=== PATIENT | female | born 1990 | race Caucasian/White ===

== ENCOUNTER 2023-05-04 10:05 | Emergency (ER) | payer OTHER, SELFPAY ==
[2023-05-04] VITALS (8 sets, daily range): BP systolic 107–113; BP diastolic 72–76; PULSE 101–119; RESP 27–30; TEMP 37.1; O2SAT 92–95; BMI 44.6
--- NOTE | 2023-05-04 10:16 | ECG_ITS ---
The [facility] Test Date: 2023-05-04 Pat Name: RASHIDA ROBLES Department: Room: - Gender: Female [employer] Specialist: : 1990 Requested By: AYSHA DEL TORO Order Number: [id number] Reading MD: JASON BURROUGHS Measurements Intervals [place] Rate: 116 P: 73 MO: 136 QRS: 75 QRSD: 84 T: 54 QT: 316 QTc: 385 Interpretive Statements 1120 Sinus tachycardia 4068 Nonspecific Twave abnormality 9140 abnormal rhythm ECG Compared to ECG 05/10/2022 12:33:50 Sinus rhythm no longer present Electronically Signed On 05-08-2023 6:37:43 EST by JASON BURROUGHS
--- NOTE | 2023-05-04 10:19 | ED_ITS ---
HPI - SOB/Dyspnea General Chief Complaint: Shortness of Breath/Dyspnea Stated Complaint: SHORTNESS OF BREATH Time Seen by Provider: 05/04/23 10:15 Source: patient Mode of arrival: walk-in Limitations: no limitations History of Present Illness HPI Narrative: asthmatic 33 yr old female sent from Barb Del Toro's office for treatment of shortness of breath, potential asthma flare. Symptoms began about 4 days ago and are associated with some upper respiratory symptoms. She also complains of chest congestion and tightness across the anterior chest. No fever or chills. No GI or symptoms. She has been using a home MDI. No treatment given at the office. Related Data Previous Rx's Medication Instructions Recorded ipratropium bromide 0.02 % 2.5 ml inhalation Q6H PRN 05/04/23 solution for inhalation shortness of breath or wheezing #62.5 mL prednisone 20 mg tablet 40 mg (2 x 20 mg) PO DAILY 5 days 05/04/23 #10 tabs Allergies Allergy/AdvReac Type Severity Reaction Status Date / Time Penicillins Allergy Unknown Verified 05/04/23 10:11 [facility] Social History Smoking status: Never smoker Exam Narrative Exam Narrative: Nurses notes and vital signs reviewed and patient is not hypoxic. afebrile General: Well-appearing and in no apparent distress. Skin: Warm, dry, no pallor noted. Neck: Supple, non-tender. No cervical lymphadenopathy Eye: Pupils are equal, round and EOMI. No scleral icterus. Ears, Nose, Mouth, and Throat: TM are clear, mild posterior oropharynx erythema and nasal mucosal hypertrophy, uvula is mid-line Oral mucosa is moist Cardiovascular: Regular Rate and Rhythm without murmur, gallop or rub. Respiratory: Accessory muscle use and increased work of breathing. Lungs are diminished throughout with inspiratory and expiratory wheezing. Musculoskeletal: normal ROM, no calf or popliteal tenderness, no lower extremity edema/swelling GI: Abdomen is soft, non-distended. Normal bowel sounds. No tenderness to palpation. No rebound, guarding, or rigidity noted. Neurological: A&O x4. No cranial nerve dysfunction observed. No truncal ataxia. Moves all extremities. Sensation intact. Psychiatric: Cooperative and interactive. Normal mood and affect. Constitutional Vital Signs, click to edit/add: Last Vital Signs Temp 98.7 F 05/04/23 10:12 Pulse 101 H 05/04/23 11:11 Resp 27 H 05/04/23 10:20 BP 113/72 05/04/23 11:11 Pulse Ox 93 L 05/04/23 11:11 O2 Del Method Room Air 05/04/23 10:32 Course Vital Signs Vital signs: Vital Signs Temperature 98.7 F 05/04/23 10:12 Pulse Rate 119 H 05/04/23 10:12 Respiratory Rate 30 H 05/04/23 10:12 Blood Pressure 107/76 05/04/23 10:12 Pulse Oximetry 93 L 05/04/23 10:12 Oxygen Delivery Method Room Air 05/04/23 10:12 Temperature 98.7 F 05/04/23 10:12 Pulse Rate 101 H 05/04/23 11:11 Respiratory Rate 27 H 05/04/23 10:20 Blood Pressure 113/72 05/04/23 11:11 Pulse Oximetry 93 L 05/04/23 11:11 Oxygen Delivery Method Room Air 05/04/23 10:32 MDM - SOB/Dyspnea MDM Narrative Medical decision making narrative: Patient was placed on shelter monitor and EKG obtained. Blood drawn and sent for evaluation. She was ordered to receive IV Solu-Medrol and a DuoNeb treatment. Portable chest x-ray obtained. Swabs and blood testing were all negative. Chest x-ray NEGATIVE. On recheck at 1055, the patient had less work of breathing and better air exchange. She still had inspiratory and expiratory breathing throughout. She felt better and declined offer for admission. She was prescribed prednisone pills and atrovent nebs. Discussed ED return if she worsens. Follow up with Barb Del Toro otherwise Lab Data Attestation: I reviewed the patient's lab results. Labs: Lab Results 05/04/23 05/04/23 Range/Units 10:28 10:30 WBC 10.6 (4.0-11.0) 10^3/uL RBC 4.75 (4.20-5.40) 10^6/uL Hgb 13.4 (12.0-16.0) g/dL Hct 41.8 (36.0-48.0) % MCV 88.0 (81.0-99.0) fL MCH 28.2 (26.7-34.0) pg MCHC 32.1 (29.9-35.2) g/dL RDW 14.0 (11.0-15.0) % Plt Count 328 (150-450) 10^3/uL MPV 10.3 (9.5-13.5) fL Neut % (Auto) 59.7 (43.0-75.0) % Lymph % (Auto) 23.2 (20.5-60.0) % [place] % (Auto) 5.4 (1.7-12.0) % Eos % (Auto) 10.8 H (0.9-7.0) % Baso % (Auto) 0.6 (0.2-2.0) % Neut # (Auto) 6.4 (1.4-6.5) 10^3/uL Lymph # (Auto) 2.5 (1.2-3.8) 10^3/uL [place] # (Auto) 0.6 (0.3-0.8) 10^3/uL Eos # (Auto) 1.2 H (0.0-0.7) 10^3/uL Baso # (Auto) 0.1 (0.0-0.1) 10^3/uL Abs Immat Gran (auto) 0.03 (0.00-0.03) 10^3/uL Imm/Tot Granulo (auto) 0.3 (0.0-0.5) % Sodium 140 (136-145) mmol/L Potassium 3.6 (3.5-5.1) mmol/L Chloride 102 (98-107) mmol/L Carbon Dioxide 25.4 (21.0-32.0) mmol/L Anion Gap 16.2 BUN 11.0 (7.0-18.0) mg/dL Creatinine 0.91 (0.55-1.02) mg/dL Est GFR ( Amer) >60 (>=60) Est GFR (Non-Af Amer) >60 (>=60) BUN/Creatinine Ratio 12.1 Glucose 155 H (74-106) mg/dL Calcium 9.3 (8.5-10.1) mg/dL Influenza Type A Ag Negative Influenza Type B Ag Negative SARS-CoV-2 Ag (CV2AG) Negative (NEGATIVE) Imaging Data Chest x-ray: Radiologist's impression: ITS Impressions Chest X-Ray 05/04/23 10:45 IMPRESSION: No acute cardiopulmonary process Electronically authenticated by: CAMILA ALMENDAREZ Date: 05/04/2023 11:05 ECG Data Attestation: I personally reviewed and interpreted this ECG as follows: Interpretation: EKG interpretation: Emergency Department physician interpretation. Sinus tachycardia at 116bpm. Normal axis, normal intervals and non specific T wave changes. No ST segment elevation or depression. Discharge Plan Discharge Chief Complaint: Shortness of Breath/Dyspnea Clinical Impression: Asthma with acute exacerbation Patient Disposition: Home, Self-Care Time of Disposition Decision: 11:26 Prescriptions / Home Meds: New prednisone 20 mg tablet 40 mg PO DAILY 5 Days Qty: 10 0RF ipratropium bromide 0.02 % solution 2.5 ml inhalation Q6H PRN (Reason: shortness of breath or wheezing) Qty: 62.5 0RF Instructions: Asthma (ED) Stand Alone Forms: Portal Instructions Referrals: AYSHA DEL TORO [Primary Care Provider] - 1 week
[2023-05-04] MEDS: METHYLPREDNISOLONE SOD SUCC PF 125 MG/2 ML VIAL IVP (10:25)
[2023-05-04] MEDS: IPRATROPIUM/ALBUTEROL SULFATE 3 ML AMPUL.NEB IH (10:31)
[2023-05-04 10:35] LABS: Basophils Absolute Auto 0.1 10^3/uL (0.0-0.1); Basophils Percent Auto 0.6 % (0.2-2.0); Eosinophils Absolute Auto 1.2 10^3/uL (0.0-0.7); Eosinophils Percent Auto 10.8 % (0.9-7.0); Hematocrit 41.8 % (36.0-48.0); Hemoglobin 13.4 g/dL (12.0-16.0); Immature Granulocytes Abs Auto 0.03 10^3/uL (0.00-0.03); Immature Granulocytes Pct Auto 0.3 % (0.0-0.5); Lymphocytes Absolute Auto 2.5 10^3/uL (1.2-3.8); Lymphocytes Percent Auto 23.2 % (20.5-60.0); Mean Corpuscular HGB Conc 32.1 g/dL (29.9-35.2); Mean Corpuscular Hemoglobin 28.2 pg (26.7-34.0); Mean Platelet Volume 10.3 fL (9.5-13.5); Monocytes Absolute Auto 0.6 10^3/uL (0.3-0.8); Monocytes Percent Auto 5.4 % (1.7-12.0); Neutrophils Absolute Auto 6.4 10^3/uL (1.4-6.5); Neutrophils Percent Auto 59.7 % (43.0-75.0); Platelet Count 328 10^3/uL (150-450); Red Blood Count 4.75 10^6/uL (4.20-5.40); White Blood Count 10.6 10^3/uL (4.0-11.0)
--- NOTE | 2023-05-04 10:45 | XR_ITS ---
The [address] [address] Patient Name: RASHIDA ROBLES MRN: [id number] date: 1990 Sex: F Assigned Patient Location: ER Current Patient Location: ER Accession/Order Number: [id number] Exam Date: 05/04/2023 10:40 Report Date: 05/04/2023 11:05 At the request of: MOLLY LUJAN Procedure: XR chest 1V EXAMINATION: XR chest 1V HISTORY: shortness of breath COMPARISON: 05/10/2022 TECHNIQUE: AP portable FINDINGS: LUNGS: No significant pulmonary parenchymal abnormalities. VASCULATURE: No increased pulmonary vasculature. PLEURA: No pneumothorax, effusion, or pleural thickening. CARDIAC: No cardiomegaly or cardiac silhouette abnormality. MEDIASTINUM: No visible mass or adenopathy. BONES: No fracture or visible bone lesion. OTHER: Negative. XR/XR chest 1V IMPRESSION: No acute cardiopulmonary process Electronically authenticated by: CAMILA ALMENDAREZ Date: 05/04/2023 11:05
[2023-05-04 10:46] LABS: Anion Gap 16.2; BUN Creatinine Ratio 12.1; Calcium 9.3 mg/dL (8.5-10.1); Carbon Dioxide 25.4 mmol/L (21.0-32.0); Chloride 102 mmol/L (98-107); Estimated GFR (African America >60 (>=60); Estimated GFR (Non-African Ame >60 (>=60); Glucose 155 mg/dL (74-106); Potassium 3.6 mmol/L (3.5-5.1); Sodium 140 mmol/L (136-145)
[2023-05-04 10:47] LABS: Influenza Virus A Antigen Negative; Influenza Virus B Antigen Negative; SARS-CoV-2 Ag NEGATIVE (NEGATIVE)
[2023-05-04 10:48] LABS: Internal Control Within Normal Limits
== END 2023-05-04 11:38 | disposition home or self-care (01) ==
PROVIDERS: Emergency Provider Emergency Medicine; PCP Nurse Practitioner Family
DX: J45.901 Unspecified asthma with (acute) exacerbation (principal)
CPT/HCPCS: 36415; 71045; 80048; 85025; 87804; 87811; 93005; 94640; 96374; 99285; J2930

== ENCOUNTER 2023-10-05 13:06 | Inpatient (IN) | payer OTHER, SELFPAY ==
[2023-10-05] VITALS (22 sets, daily range): BP systolic 128–130; BP diastolic 64–93; PULSE 96–114; TEMP 36.6–36.8; O2SAT 92–99; BMI 44.6; BMI 44.4
--- NOTE | 2023-10-05 13:13 | XR_ITS ---
The [address] [address] Patient Name: RASHIDA ROBLES MRN: [id number] date: 1990 Sex: F Assigned Patient Location: ED.MAIN Current Patient Location: ER Accession/Order Number: [id number] Exam Date: 10/05/2023 11:50 Report Date: 10/05/2023 14:13 At the request of: GEORGE WILCOX Procedure: XR chest 2V EXAM: XR chest 2V HISTORY: shortness of breath COMPARISON: 05/04/2023 TECHNIQUE: Upright PA and lateral chest x-ray FINDINGS: The heart is not enlarged and the vasculature is not distended. No acute infiltrate, effusion or pneumothorax is identified. The osseous structures are grossly intact. XR/XR chest 2V IMPRESSION: No acute infiltrate or evidence of cardiac decompensation. The overall appearance of the chest is essentially unchanged. Electronically authenticated by: BURT CUENCA Date: 10/05/2023 14:13
[2023-10-05] MEDS: METHYLPREDNISOLONE SOD SUCC PF 125 MG/2 ML VIAL IVP (13:21)
--- NOTE | 2023-10-05 13:23 | PC.NURSE ---
started for comfort
[2023-10-05] MEDS: IPRATROPIUM/ALBUTEROL SULFATE 3 ML AMPUL.NEB 9 ML IH (13:25)
[2023-10-05] MEDS: MAGNESIUM SULFATE IN WATER 2 GM/50 ML PREMIX IV (13:33)
--- NOTE | 2023-10-05 15:26 | ED_ITS ---
HPI HPI - General Adult General Chief complaint: Shortness of Breath/Dyspnea Stated complaint: SOB Time Seen by Provider: 10/05/23 13:09 Source: patient Mode of arrival: Wheelchair Limitations: no limitations History of Present Illness HPI narrative: 33-year-old female to the emergency department with chief complaint of asthma exacerbation. Patient has longstanding asthma. She reports multiple hospitalizations. No intubations. She reports it has been a few months since she has been on steroids. Current spell started over the last 2 to 3 days. She has been using albuterol nebulizer treatments at home with only mild relief of symptoms. Worsened today. She occasionally smokes. No chest pain or leg swelling. Related Data Home Medications ?Medication ?Instructions ?Recorded ?Confirmed albuterol sulfate 2.5 mg/3 mL 2.5 mg inhalation Q4H PRN 10/05/23 10/05/23 (0.083 %) solution for nebulization shortness of breath or wheezing albuterol sulfate 90 mcg/actuation 2 inh inhalation Q4H PRN 10/05/23 10/05/23 aerosol inhaler bronchospasm cetirizine 10 mg tablet 10 mg PO DAILY 10/05/23 10/05/23 lamotrigine 100 mg tablet 200 mg PO DAILY 10/05/23 10/05/23 mometasone-formoterol HFA 200 2 inh inhalation Q12H 10/05/23 10/05/23 mcg-5 mcg/actuation aerosol inhaler (Dulera) quetiapine 100 mg tablet 100 mg PO DAILY 10/05/23 10/05/23 tiotropium bromide 1.25 2 puff inhalation Q24H 10/05/23 10/05/23 mcg/actuation mist for inhalation (Spiriva Respimat) Allergies Allergy/AdvReac Type Severity Reaction Status Date / Time Penicillins Allergy Unknown Unknown Verified 10/05/23 13:11 Opioid HPI Opioid Management Most Recent Opioid Data: No Data to Display Review of Systems ROS Status of ROS 10 or more systems reviewed and unremark able except as noted in history and below PFSH PFSH Social History Smoking status: Never smoker Exam Narrative Exam Narrative: VITALS: I have reviewed the triage vital signs. GENERAL: 33-year-old female in moderate respiratory distress NEURO: Alert and oriented. Moves all extremities. Face is symmetric and e xpressive. EYES: PERRL. No scleral icterus or conjunctival injection. No discharge. HENT: Normocephalic, atraumatic. Hearing is grossly intact. Nares grossly patent and without discharge. Mucous membranes moist. NECK: No JVD. Patient moves neck without restriction. CARDIO: Rhythm regular. Normal rate. No murmur, rub, or gallop. Pulses equal bilaterally in the upper and lower extremity. No lower extremity edema. PULM: Severe conversational dyspnea. Moderate increased work of breathing. Minimal air movement. Hyperexpanded lungs. Trace wheezing. GI/: Abdomen is soft and non-tender. Normoactive bowel sounds. EXTREMITIES: Symmetric muscle bulk. No joint swelling. No clubbing, cyanosis, or deformity. SKIN: Warm and dry. Normal turgor. No rash or lesions appreciated. PSYCH: Anxious Constitutional Vital Signs, click to edit/add: Last Vital Signs Temp 97.9 F 10/05/23 13:11 Pulse 114 H 10/05/23 13:26 Resp 20 10/05/23 13:26 BP 128/93 H 10/05/23 13:13 Pulse Ox 98 10/05/23 15:10 O2 Del Method Nasal Cannula 10/05/23 13:26 O2 Flow Rate 1 10/05/23 13:26 Course Vital Signs Vital signs: Vital Signs Temperature 97.9 F 10/05/23 13:11 Respiratory Rate 28 H 10/05/23 13:11 Blood Pressure 128/93 H 10/05/23 13:11 Pulse Oximetry 94 L 10/05/23 13:11 Oxygen Delivery Method Room Air 10/05/23 13:11 Temperature 97.9 F 10/05/23 13:11 Pulse Rate 114 H 10/05/23 13:26 Respiratory Rate 20 10/05/23 13:26 Blood Pressure 128/93 H 10/05/23 13:13 Pulse Oximetry 98 10/05/23 15:10 Oxygen Delivery Method Nasal Cannula 10/05/23 13:26 Oxygen Delivery Flow Rate 1 10/05/23 13:26 Medical Decision Making MDM Narrative Medical decision making narrative: 33-year-old female to the emergency department chief complaint of asthma exacerbation. She is tachypneic, otherwise stable vitals. She has moderate to severe respiratory distress. Respiratory was called and she was given 3 stacked DuoNeb treatments, 2 g of magnesium, 125 mg of IV Solu-Medrol. She denies , declines test. Patient did open up significantly and is moving much better. She feels much more comfortable. Her respiratory rate has come down significantly. Her oxygen saturation hovered around 90 so she was placed on 1 to 2 L O2. She felt much more comfortable with some oxygen on. Chest x-ray without acute findings. No indication for labs at this time. Discussed with the patient. She reports that this is a more severe exacerbation than typical for her. She believes she is best served by hospitalization which I agree with. Case discussed with the hospitalist Dr. Ortiz who agrees admit the patient to his service. Medical Records Medical records reviewed: Yes I reviewed the patient's medical records Imaging Data Chest x-ray: Radiologist's impression: ITS Impressions Chest X-Ray 10/05/23 13:13 IMPRESSION: No acute infiltrate or evidence of cardiac decompensation. The overall appearance of the chest is essentially unchanged. Electronically authenticated by: BURT CUENCA Date: 10/05/2023 14:13 Critical Care Time Critical Care Time Critical Care Time: Yes Total Critical Care Time: 25 Attestation: Critical Care Procedure Note Authorized and Performed by: Aristides Gallardo DO Total critical care time: 30 min Due to a high probability of clinically significant, life threatening deterioration, the patient required my highest level of preparedness to in [facility] emergently and I personally spent this critical care time directly and personally managing the patient. This critical care time included obtaining a history; examining the patient; pulse oximetry; ordering and review of studies; arranging urgent treatment with development of a management plan; evaluation of patient's response to treatment; frequent reassessment; and, discussions with other providers. This critical care time was performed to assess and manage the high probability of imminent, life-threatening deterioration that could result in multi-organ failure. It was exclusive of separately billable procedures and treating other patients and teaching time. Please see MDM section and the rest of the note for further information on patient assessment and treatment. Discharge Plan Discharge Chief Complaint: Shortness of Breath/Dyspnea Clinical Impression: Asthma with acute exacerbation, Respiratory failure Patient Disposition: Admitted as Observation Time of Disposition Decision: 15:31 Condition: Fair Prescriptions / Home Meds: No Action albuterol sulfate 2.5 mg /3 mL (0.083 %) solution for nebulization cetirizine 10 mg tablet quetiapine 100 mg tablet albuterol sulfate 90 mcg/actuation HFA aerosol inhaler INHALATION lamotrigine 100 mg tablet Dulera 200-5 mcg/actuation HFA aerosol inhaler INHALATION Spiriva Respimat 1.25 mcg/actuation mist INHALATION Print Language: Telugu Referrals: AYSHA DEL TORO [Primary Care Provider] - 1 week
[2023-10-05] MEDS: ONDANSETRON PF 4 MG/2 ML VIAL IV (15:30)
[2023-10-05] MEDS: AZITHROMYCIN 500 MG in 0.9 % SODIUM CHLORIDE 250 ML 250 MG IV (18:23)
[2023-10-05] MEDS: METHYLPREDNISOLONE SOD SUCC PF 125 MG/2 ML VIAL 60 MG IVP (18:24)
[2023-10-05] MEDS: 0.9 % SODIUM CHLORIDE 250 ML 10 ML IV (18:24)
[2023-10-05] MEDS: IPRATROPIUM/ALBUTEROL SULFATE 3 ML AMPUL.NEB IH ×2 (19:02→23:04)
[2023-10-05] MEDS: ONDANSETRON 4 MG RAPDIS TABLET PO (19:27)
[2023-10-05] MEDS: QUETIAPINE FUMARATE 100 MG TABLET 400 MG PO (21:20)
[2023-10-05] MEDS: BUDESONIDE 0.5 MG/2 ML AMPULE NEB IH (23:04)
[2023-10-06] VITALS (9 sets, daily range): BP systolic 114–128; BP diastolic 68–75; PULSE 100–122; TEMP 36.3–37.2; O2SAT 92–98
[2023-10-06] MEDS: METHYLPREDNISOLONE SOD SUCC PF 125 MG/2 ML VIAL 60 MG IVP ×4 (01:36→19:45)
[2023-10-06] MEDS: GUAIFENESIN 200 MG/DEXTROMETHORPHAN 20 MG 10 ML UNIT DOSE CUP PO ×2 (02:42→08:32)
[2023-10-06] MEDS: IPRATROPIUM/ALBUTEROL SULFATE 3 ML AMPUL.NEB IH ×6 (03:58→23:00)
[2023-10-06 06:17] LABS: Basophils Percent Auto 0.1 % (0.2-2.0); Eosinophils Percent Auto 0.1 % (0.9-7.0); Hematocrit 36.6 % (36.0-48.0); Hemoglobin 12.1 g/dL (12.0-16.0); Immature Granulocytes Abs Auto 0.07 10^3/uL (0.00-0.03); Immature Granulocytes Pct Auto 0.6 % (0.0-0.5); Lymphocytes Percent Auto 7.6 % (20.5-60.0); Mean Corpuscular HGB Conc 33.1 g/dL (29.9-35.2); Mean Corpuscular Hemoglobin 28.7 pg (26.7-34.0); Mean Corpuscular Volume 86.9 fL (81.0-99.0); Mean Platelet Volume 10.7 fL (9.5-13.5); Monocytes Absolute Auto 0.1 10^3/uL (0.3-0.8); Monocytes Percent Auto 0.6 % (1.7-12.0); Neutrophils Absolute Auto 11.5 10^3/uL (1.4-6.5); Platelet Count 264 10^3/uL (150-450); Red Blood Count 4.21 10^6/uL (4.20-5.40); Red Cell Distribution Width 13.8 % (11.0-15.0); White Blood Count 12.6 10^3/uL (4.0-11.0)
[2023-10-06 06:27] LABS: Anion Gap 9.5; BUN Creatinine Ratio 12.5; Calcium 8.9 mg/dL (8.5-10.1); Carbon Dioxide 24.4 mmol/L (21.0-32.0); Chloride 102 mmol/L (98-107); Estimated GFR (African America >60 (>=60); Estimated GFR (Non-African Ame >60 (>=60); Glucose 255 mg/dL (74-106); Potassium 3.9 mmol/L (3.5-5.1); Sodium 132 mmol/L (136-145)
[2023-10-06] MEDS: LAMOTRIGINE 100 MG TABLET 200 MG PO (08:32)
[2023-10-06] MEDS: QUETIAPINE FUMARATE 100 MG TABLET PO (08:32)
[2023-10-06] MEDS: CETIRIZINE HCL 10 MG TABLET PO (08:32)
--- NOTE | 2023-10-06 11:04 | P.HP_ITS ---
HPI H&P: HPI History of Present Illness Chief complaint: ASTHMA/EXACERBATION Narrative: 33 y/o female with a history of asthma to ER with SOB. Prior hospitalizations but never intubated. Developed SOB for past 2-3 days. Chest tight and hard to take deep breath. Frequent cough and mild sputum. Severe SOB with minimal exertion. No improvement with albuterol and to ER. Normal SpO2 on room air but noted to be in mild respiratory distress with tachypnea. Gave steroids, breathing treatments and magnesium with minimal relief and admitted. Started solu-medrol and duonebs. Added zithromax for possible infection. No change overnight. Continues to have severe SOB and chest tightness. Remains on room air. Opioid HPI Opioid Management Most Recent Pain and Opioid Data: Last Pain Assessment 10/06/23 11:00 Last ORT Total Score 1 10/05/23 16:28 Last ORT Risk Category Low Risk 10/05/23 16:28 Review of Systems ROS Constitutional Denies: fever, chills or fatigue Cardiovascular Denies: chest pain, palpitations or edema Respiratory Reports: shortness of breath, cough and wheezing Gastrointestinal Denies: abdominal pain, nausea, vomiting or diarrhea Genitourinary Denies: painful urination PFSH PFS Medical History (Updated 10/06/23 @ 09:07 by Brandon Ortiz MD) Asthma with acute exacerbation ?J45.901 - Unspecified asthma with (acute) exacerbation (ICD-10) Mild persistent asthma in adult without complication ?J45.30 - Mild persistent asthma, uncomplicated (ICD-10) Respiratory failure ?J96.90 - Respiratory failure, unspecified, unspecified whether with hypoxia or hypercapnia (ICD-10) Family History (Updated 10/05/23 @ 16:26 by Wanda Malcolm) Grandmother Family history of diabetes mellitus Social History (Updated 10/05/23 @ 16:28 by Wanda Malcolm) Within the past year, how often did you have a drink containing alcohol: never Score interpretation: A score less than 3 is consistent with normal alcohol consumption. Smoking status: Current some day smoker Non-prescribed substance use: cannabis (any form) Previous occupational history: [employer] Highest level of school completed/degree received: high school graduate Are you now , , , , never or living with a partner: living with partner In a typical week, how many times do you talk on the telephone with family, friends, or neighbors: 3 or more times per week How often do you get together with friends or relatives: 3 or more times per week How often do you attend orthodoxy or advent services: 4 or more times per year Little interest or pleasure in doing things: not at all Feeling down, depressed, or hopeless: not at all Feel stressed/tense/nervous/anxious/difficulty sleeping: not at all Meds Home Medications and Allergies Home Medications ?Medication ?Instructions ?Recorded ?Confirmed ?Type albuterol sulfate 2.5 mg/3 mL 2.5 mg inhalation Q4H PRN 10/05/23 10/05/23 History (0.083 %) solution for nebulization shortness of breath or wheezing albuterol sulfate 90 mcg/actuation 2 inh inhalation Q4H PRN 10/05/23 10/05/23 History aerosol inhaler bronchospasm cetirizine 10 mg tablet 10 mg PO DAILY 10/05/23 10/05/23 History lamotrigine 100 mg tablet 200 mg PO DAILY 10/05/23 10/05/23 History mometasone-formoterol HFA 200 2 inh inhalation Q12H 10/05/23 10/05/23 History mcg-5 mcg/actuation aerosol inhaler (Dulera) quetiapine 100 mg tablet 100 mg PO DAILY 10/05/23 10/05/23 History quetiapine 400 mg tablet 400 mg PO .QHS 10/05/23 10/05/23 History tiotropium bromide 1.25 2 puff inhalation Q24H 10/05/23 10/05/23 History mcg/actuation mist for inhalation (Spiriva Respimat) Allergies Allergy/AdvReac Type Severity Reaction Status Date / Time Penicillins Allergy Unknown Unknown Verified 10/05/23 13:11 Exam Constitutional Vital Signs, click to edit/add: Last Vital Signs Temp 97.4 F L 10/06/23 06:00 Pulse 100 H 10/06/23 07:25 Resp 20 10/06/23 07:25 BP 128/72 10/06/23 06:00 Pulse Ox 95 10/06/23 07:25 O2 Del Method Room Air 10/06/23 07:25 O2 Flow Rate 1 10/05/23 23:04 Documenting provider has reviewed patient's vital signs: yes Common normals: no apparent distress, oriented x3 and alert HENMT Common normals: normocephalic Eye Common normals: PERRL and EOMs intact bilaterally Respiratory Common normals: normal respiratory effort Auscultation: wheezes scattered wheezes and throughout and diminished lung jana nds bilateral Cardio Common normals: regular rate, regular rhythm, no gallops, no murmurs and no rub GI Common normals: Normal to inspection, nondistended, normoactive bowel sounds present and non-tender Extremity Common normals: no pedal edema Results Labs Labs: Short CBC 10/06/23 Range/Units 05:12 WBC 12.6 H (4.0-11.0) 10^3/uL Hgb 12.1 (12.0-16.0) g/dL Hct 36.6 (36.0-48.0) % Plt Count 264 (150-450) 10^3/uL BMP 10/06/23 05:12 Sodium 132 L Potassium 3.9 Chloride 102 Carbon Dioxide 24.4 BUN 10.0 Creatinine 0.80 Glucose 255 H Calcium 8.9 Assessment and Plan Assessment and Plan (1) Mild persistent asthma with exacerbation: (2) SOB (shortness of breath): Plan Slow to improve with treatment. Continue antibiotics, steroids, and breathing treatments. Increase ambulation and use PEP. Likely will be ready for discharge in next 1-2 days.
[2023-10-06] MEDS: BENZONATATE 100 MG CAPSULE 200 MG PO (11:09)
[2023-10-06] MEDS: BUDESONIDE 0.5 MG/2 ML AMPULE NEB IH ×2 (11:19→23:00)
--- NOTE | 2023-10-06 11:20 | CM.NOTE ---
10:[address]. [address] Ortiz discussed test results and treatment plan of IV steroids, Antibiotics and Duoneb treatments. Tamika verbalized understanding. No plan for discharge today.
[2023-10-06] MEDS: AZITHROMYCIN 500 MG in 0.9 % SODIUM CHLORIDE 250 ML 250 MG IV (18:17)
[2023-10-06] MEDS: ONDANSETRON 4 MG RAPDIS TABLET PO (19:45)
[2023-10-06] MEDS: QUETIAPINE FUMARATE 100 MG TABLET 400 MG PO (21:51)
[2023-10-07] VITALS (8 sets, daily range): BP systolic 113–140; BP diastolic 63–85; PULSE 86–117; TEMP 36.4–36.8; O2SAT 92–97
[2023-10-07] MEDS: METHYLPREDNISOLONE SOD SUCC PF 125 MG/2 ML VIAL 60 MG IVP ×4 (02:30→19:38)
[2023-10-07 05:56] LABS: Anion Gap 13.9; BUN Creatinine Ratio 16.1; Calcium 9.1 mg/dL (8.5-10.1); Carbon Dioxide 22.6 mmol/L (21.0-32.0); Chloride 105 mmol/L (98-107); Estimated GFR (African America >60 (>=60); Estimated GFR (Non-African Ame >60 (>=60); Glucose 293 mg/dL (74-106); Potassium 4.5 mmol/L (3.5-5.1); Sodium 137 mmol/L (136-145)
[2023-10-07 05:58] LABS: Basophils Percent Auto 0.1 % (0.2-2.0); Hematocrit 38.2 % (36.0-48.0); Hemoglobin 12.4 g/dL (12.0-16.0); Immature Granulocytes Abs Auto 0.22 10^3/uL (0.00-0.03); Lymphocytes Absolute Auto 1.3 10^3/uL (1.2-3.8); Lymphocytes Percent Auto 5.9 % (20.5-60.0); Mean Corpuscular HGB Conc 32.5 g/dL (29.9-35.2); Mean Corpuscular Hemoglobin 28.4 pg (26.7-34.0); Mean Corpuscular Volume 87.6 fL (81.0-99.0); Mean Platelet Volume 10.7 fL (9.5-13.5); Monocytes Absolute Auto 0.3 10^3/uL (0.3-0.8); Monocytes Percent Auto 1.3 % (1.7-12.0); Neutrophils Absolute Auto 19.7 10^3/uL (1.4-6.5); Neutrophils Percent Auto 91.7 % (43.0-75.0); Platelet Count 297 10^3/uL (150-450); Red Blood Count 4.36 10^6/uL (4.20-5.40); Red Cell Distribution Width 14.2 % (11.0-15.0); White Blood Count 21.5 10^3/uL (4.0-11.0)
[2023-10-07] MEDS: CEFTRIAXONE 1,000 MG in 0.9 % SODIUM CHLORIDE 50 ML 100 MG IV (08:07)
[2023-10-07] MEDS: LAMOTRIGINE 100 MG TABLET 200 MG PO (08:07)
[2023-10-07] MEDS: QUETIAPINE FUMARATE 100 MG TABLET PO (08:07)
[2023-10-07] MEDS: CETIRIZINE HCL 10 MG TABLET PO (08:07)
--- NOTE | 2023-10-07 10:44 | P.PN_ITS ---
Progress Note: Subjective Subjective Interval history: Shortness of breath persisting this morning. Significant cough, moist sounding. Significant cough throughout the evaluation. Exam Constitutional Vital Signs, click to edit/add: Last Vital Signs Temp 97.9 F 10/07/23 08:20 Pulse 101 H 10/07/23 08:20 Resp 16 10/07/23 08:20 BP 118/63 10/07/23 08:20 Pulse Ox 93 L 10/07/23 08:20 O2 Del Method Room Air 10/07/23 08:20 O2 Flow Rate 1 10/05/23 23:04 Documenting provider has reviewed patient's vital signs: yes Common normals: apparent distress (Moderate conversational dyspnea, worsened with cough) Chest Common normals: inspection of chest normal and palpation of chest normal Respiratory Common normals: no retractions; abnormal respiratory effort (Moderate conversational dyspnea worsened with cough) and not clear to ascultation bilaterally Auscultation: rhonchi and wheezes (Sounds very tight) Cardio Common normals: regular rate and regular rhythm Progress Note: Objective Labs Labs: Short CBC 10/07/23 Range/Units 05:03 WBC 21.5 H (4.0-11.0) 10^3/uL Hgb 12.4 (12.0-16.0) g/dL Hct 38.2 (36.0-48.0) % Plt Count 297 (150-450) 10^3/uL [facility] 10/07/23 05:03 Sodium 137 Potassium 4.5 Chloride 105 Carbon Dioxide 22.6 BUN 14.0 Creatinine 0.87 Glucose 293 H Calcium 9.1 Progress Note: A&P Assessment and Plan (1) Mild persistent asthma with exacerbation: (2) SOB (shortness of breath): Plan Admission findings: Acute hypoxia, sinus tachycardia, leukocytosis secondary to acute exacerbation of asthma with likely concomitant bronchitis. As based on exam. May need repeat CT scan. She is around aerosol treatments as her cough is sounding worse. Dyspnea persisting after initial treatment. With the asthma Treatment:, Changing to Xopenex based on significant tachycardia. Tachycardia likely related to albuterol and failure to improve asthma in the first day. Try to obtain sputum culture. Hyponatremia-improved back to baseline-monitor daily Steroid-induced hyperglycemia-add insulin sliding scale Admission status: Patient initially placed in observation due to a flareup of her asthma, she has not improved in some degrees is worse today. With progression of her illness despite initial treatment, need to adjust med ications, medically necessary treatment will span 2 midnights. She is here 1 more day possibly 2.
[2023-10-07 11:02] LABS: Glucometer 353 mg/dL (74-106)
[2023-10-07] MEDS: IPRATROPIUM BROMIDE 0.5 MG/2.5 ML VIAL.NEB IH ×3 (11:15→22:56)
[2023-10-07] MEDS: LEVALBUTEROL HCL 0.63 MG/3 ML VIAL.NEB IH ×3 (11:15→22:56)
[2023-10-07] MEDS: BUDESONIDE 0.5 MG/2 ML AMPULE NEB IH ×2 (11:15→22:56)
[2023-10-07] MEDS: INSULIN ASPART 300 UNIT/3 ML PEN SUBQ ×3 (11:47→21:02)
[2023-10-07 16:02] LABS: Glucometer 254 mg/dL (74-106)
[2023-10-07] MEDS: AZITHROMYCIN 500 MG in 0.9 % SODIUM CHLORIDE 250 ML 250 MG IV (17:36)
[2023-10-07] MEDS: 0.9 % SODIUM CHLORIDE 250 ML 10 ML IV (17:36)
[2023-10-07] MEDS: ONDANSETRON 4 MG RAPDIS TABLET PO (17:39)
[2023-10-07] MEDS: QUETIAPINE FUMARATE 100 MG TABLET 400 MG PO (21:01)
[2023-10-07 21:02] LABS: Glucometer 287 mg/dL (74-106)
[2023-10-08] MEDS: METHYLPREDNISOLONE SOD SUCC PF 125 MG/2 ML VIAL 60 MG IVP (01:34)
[2023-10-08 03:00] VITALS: BP 135/77; PULSE 74; TEMP 36.1; O2SAT 93
[2023-10-08 05:14] VITALS: PULSE 82; O2SAT 97
[2023-10-08] MEDS: LEVALBUTEROL HCL 0.63 MG/3 ML VIAL.NEB IH ×2 (05:14→10:38)
[2023-10-08] MEDS: IPRATROPIUM BROMIDE 0.5 MG/2.5 ML VIAL.NEB IH ×2 (05:14→10:38)
[2023-10-08 05:47] LABS: Basophils Percent Auto 0.1 % (0.2-2.0); Hematocrit 38.7 % (36.0-48.0); Hemoglobin 12.4 g/dL (12.0-16.0); Immature Granulocytes Abs Auto 0.18 10^3/uL (0.00-0.03); Lymphocytes Absolute Auto 1.6 10^3/uL (1.2-3.8); Lymphocytes Percent Auto 8.5 % (20.5-60.0); Mean Corpuscular Hemoglobin 28.3 pg (26.7-34.0); Mean Corpuscular Volume 88.4 fL (81.0-99.0); Mean Platelet Volume 10.3 fL (9.5-13.5); Monocytes Absolute Auto 0.2 10^3/uL (0.3-0.8); Neutrophils Absolute Auto 16.8 10^3/uL (1.4-6.5); Neutrophils Percent Auto 89.4 % (43.0-75.0); Platelet Count 290 10^3/uL (150-450); Red Blood Count 4.38 10^6/uL (4.20-5.40); Red Cell Distribution Width 14.2 % (11.0-15.0); White Blood Count 18.8 10^3/uL (4.0-11.0)
[2023-10-08 05:58] LABS: Anion Gap 12.2; BUN Creatinine Ratio 23.8; Calcium 9.2 mg/dL (8.5-10.1); Chloride 103 mmol/L (98-107); Estimated GFR (African America >60 (>=60); Estimated GFR (Non-African Ame >60 (>=60); Glucose 258 mg/dL (74-106); Potassium 4.2 mmol/L (3.5-5.1); Sodium 137 mmol/L (136-145)
[2023-10-08 07:48] LABS: Glucometer 252 mg/dL (74-106)
[2023-10-08] MEDS: QUETIAPINE FUMARATE 100 MG TABLET PO (08:19)
[2023-10-08] MEDS: CETIRIZINE HCL 10 MG TABLET PO (08:20)
[2023-10-08] MEDS: PREDNISONE 20 MG TABLET 40 MG PO (08:20)
[2023-10-08] MEDS: LAMOTRIGINE 100 MG TABLET 200 MG PO (08:20)
[2023-10-08] MEDS: CEFTRIAXONE 1,000 MG in 0.9 % SODIUM CHLORIDE 50 ML 100 MG IV (08:20)
[2023-10-08] MEDS: INSULIN ASPART 300 UNIT/3 ML PEN SUBQ (08:20)
[2023-10-08 08:30] VITALS: BP 133/87; PULSE 93; TEMP 36.4; O2SAT 97
--- NOTE | 2023-10-08 09:06 | P.DS_ITS ---
DS: Providers Provider Date of admission: 10/07/23 11:39 Primary care physician: AYSHA DEL TORO DS: Diagnosis Discharge Diagnosis (1) Mild persistent asthma with exacerbation: (2) SOB (shortness of breath): Plan Admission findings: Acute hypoxia, sinus tachycardia, leukocytosis secondary to acute exacerbation of asthma with likely concomitant bronchitis. As based on exam. May need repeat CT scan. She is around aerosol treatments as her cough is sounding worse. Dyspnea persisting after initial treatment. With the asthma Treatment:, Changing to Xopenex based on significant tachycardia. Tachycardia likely related to albuterol and failure to improve asthma in the first day. Improved at the time of discharge Hyponatremia-reason at the time of discharge Steroid-induced hyperglycemia-add insulin sliding scale Admission status: Patient initially placed in observation due to a flareup of her asthma, she has not improved in some degrees is worse today. With progression of her illness despite initial treatment, need to adjust medications, medically necessary treatment will span 2 midnights. She is here 1 more day possibly 2. DS: Summary Hospital Course Hospital Course: Patient was initially placed in observation for increasing shortness of breath and a flareup of her asthma. She did not improve at all on the first day. She developed some mild tachycardia and is significant hyperglycemia. Medications were adjusted. She still had some very tight wheezing yesterday. With significant dyspnea with any activity. Again no improvement in that first day. Today she is improving. She is not back to baseline. She is not requiring any supplemental oxygen, her tachycardia has resolved, she is ambulating better but still with significant dyspnea. At this point we will discharge patient to home in improved condition. Medications see list. Follow-up this week. If any symptoms or shortness of breath return she was recommended to return to the emergency room for continued treatment Status at Discharge Overall status at discharge: patient is not back to baseline Time Spent with Patient Time attestation: Total time spent providing and/or coordinating discharge services: Time spent: greater than 30 minutes Exam Constitutional Vital Signs, click to edit/add: Last Vital Signs Temp 97.6 F 10/08/23 08:30 Pulse 93 H 10/08/23 08:30 Resp 12 10/08/23 08:30 BP 133/87 10/08/23 08:30 Pulse Ox 97 10/08/23 08:30 O2 Del Method Room Air 10/08/23 08:30 O2 Flow Rate 1 10/05/23 23:04 Documenting provider has reviewed patient's vital signs: yes Common normals: apparent distress (Improved from previous day but just had breathing treatment) Chest Common normals: inspection of chest normal and palpation of chest normal Respiratory Common normals: no retractions; abnormal respiratory effort (No conversational dyspnea this morning but did just have breathing treatmen) and not clear to ascultation bilaterally Auscultation: rhonchi (Improved from previous day but still persisting) and wheezes (Improved from previous day but still present) Cardio Common normals: regular rate and regular rhythm GI Common normals: Normal to inspection, nondistended, normoactive bowel sounds present DS: Data Data Completed and Pending Labs on day of discharge: Labs from last 24 hours 10/08/23 10/08/23 10/07/23 07:47 05:10 21:01 WBC 18.8 H RBC 4.38 Hgb 12.4 Hct 38.7 MCV 88.4 MCH 28.3 MCHC 32.0 RDW 14.2 Plt Count 290 MPV 10.3 Neut % (Auto) 89.4 H Lymph % (Auto) 8.5 L O'Brien % (Auto) 1.0 L Eos % (Auto) 0.0 L Baso % (Auto) 0.1 L Neut # (Auto) 16.8 H Lymph # (Auto) 1.6 O'Brien # (Auto) 0.2 L Eos # (Auto) 0.0 Baso # (Auto) 0.0 Abs Immat Gran (auto) 0.18 H Imm/Tot Granulo (auto) 1.0 H Sodium 137 Potassium 4.2 Chloride 103 Carbon Dioxide 26.0 Anion Gap 12.2 BUN 20.0 H Creatinine 0.84 Est GFR ( Amer) >60 Est GFR (Non-Af Amer) >60 BUN/Creatinine Ratio 23.8 Glucose 258 H Calcium 9.2 POC Glucose 252 H 287 H 10/07/23 10/07/23 16:01 11:01 WBC RBC Hgb Hct MCV MCH MCHC RDW Plt Count MPV Neut % (Auto) Lymph % (Auto) O'Brien % (Auto) Eos % (Auto) Baso % (Auto) Neut # (Auto) Lymph # (Auto) O'Brien # (Auto) Eos # (Auto) Baso # (Auto) Abs Immat Gran (auto) Imm/Tot Granulo (auto) Sodium Potassium Chloride Carbon Dioxide Anion Gap BUN Creatinine Est GFR ( Amer) Est GFR (Non-Af Amer) BUN/Creatinine Ratio Glucose Calcium POC Glucose 254 H 353 H Discharge Plan Discharge Disposition: Home, Self-Care Condition: Fair Discharge Medications: New montelukast [Singulair] 10 mg tablet 10 mg PO QPM Qty: 30 11RF prednisone 10 mg tablet 30 mg PO DAILY Qty: 20 0RF Rx Instructions: 3/day for 3 days, 2/day for 3 days, 1/day for 3 days, 1/2 /day for 4 days cefdinir 300 mg capsule 600 mg PO DAILY Qty: 20 0RF Continued albuterol sulfate 2.5 mg /3 mL (0.083 %) solution for nebulization 2.5 mg inhalation Q4H PRN (Reason: shortness of breath or wheezing) cetirizine 10 mg tablet 10 mg PO DAILY quetiapine 100 mg tablet 100 mg PO DAILY albuterol sulfate 90 mcg/actuation HFA aerosol inhaler 2 inh INHALATION Q4H PRN (Reason: bronchospasm) lamotrigine 100 mg tablet 200 mg PO DAILY Dulera 200-5 mcg/actuation HFA aerosol inhaler 2 inh INHALATION Q12H Spiriva Respimat 1.25 mcg/actuation mist 2 puff INHALATION Q24H quetiapine 400 mg tablet 400 mg PO .QHS Print Language: Ukrainian Forms: Portal Instructions
[2023-10-08] MEDS: BUDESONIDE 0.5 MG/2 ML AMPULE NEB IH (10:38)
[2023-10-08 10:40] VITALS: PULSE 95; O2SAT 96
--- NOTE | 2023-10-09 12:44 | CM.DCFOLLOWU ---
1st attempt 10/09/23
--- NOTE | 2023-10-09 12:45 | CM.DCFOLLOWU ---
1st attempt 10/09/23
--- NOTE | 2023-10-10 12:27 | CM.DCFOLLOWU ---
2nd attempt 10/10/23
--- NOTE | 2023-10-11 11:20 | CM.DCFOLLOWU ---
3rd attempt 10/11/23
== END 2023-10-08 12:35 | disposition home or self-care (01) | DRG 141 ==
LOC: ER 15:31 → MS 16:08
PROVIDERS: Admitting Provider Family Medicine; Emergency Provider Student in an Organized Health Care Education/Training Program; PCP Nurse Practitioner Family; Visit Provider Family Medicine
DX: J45.31 Mild persistent asthma with (acute) exacerbation (principal); R09.02 Hypoxemia; R00.0 Tachycardia, unspecified; E87.1 Hypo-osmolality and hyponatremia; D72.829 Elevated white blood cell count, unspecified; R73.9 Hyperglycemia, unspecified; T38.0X5A Adverse effect of glucocorticoids and synthetic analogues, initial encounter
CPT/HCPCS: 36415; 71046; 80048; 82948; 85025; 87070; 94640; 94667; 94668; 94761; 96365; 96366; 96367; 96375; 96376; 99285; G0378; J0456; J0696; J2405; J2919; J3475; J7512; Q0162

== ENCOUNTER 2023-11-01 11:39 | Outpatient (OUT) | payer OTHER, SELFPAY ==
--- NOTE | 2023-11-01 11:42 | MM_ITS ---
Patient Name: RASHIDA ROBLES MR#: [id number] : 1990 Exam Date: 11/01/2023 Ordering Doctor: AYSHA DEL TORO CNP RADIOLOGY REPORT PROCEDURE: MM TOMOSYNTHESIS SCREENING BI COMPARISON: None. INDICATIONS: Screening Calculator Name NCI Breast Cancer Risk Assessment Tool 5 Year Breast Cancer Risk Not Applicable. Lifetime Breast Cancer Risk Not Applicable. Personal Breast Cancer No Personal Ovarian Cancer No Treatments None Family Cancers None LOCATION: [facility] BREAST COMPOSITION: The breasts are heterogeneously dense,which may obscure small masses. FINDINGS: DIAGNOSTIC CATEGORY 1--NEGATIVE. RIGHT BREAST: No significant suspicious finding. LEFT BREAST: No significant suspicious finding. RECOMMENDATIONS: CLINICAL EVALUATION. PLEASE NOTE: A NORMAL MAMMOGRAM DOES NOT EXCLUDE THE POSSIBILITY OF BREAST CANCER. A CLINICALLY SUSPICIOUS PALPABLE LUMP SHOULD BE BIOPSIED. Dictated by: Austyn Patton M.D. on 11/01/2023 at 14:47 Approved by: Austyn Patton M.D. on 11/01/2023 at 14:55
--- OUTSIDE RECORDS SUMMARY | 2023-11-01 11:42 | XMS_ITS | CCD ---
Author Organization [facility] Care Team Providers Care Foreign Exchange Dealer Name Role Phone AYSHA DEL TORO Admitting Unavailable AYSHA DEL TORO Attending Unavailable [place], INTERNAL CORROSION SPECIALIST SHAUNA Primary Care Unavailable AYSHA DEL TORO Consulting Unavailable AYSHA DEL TORO Admitting Unavailable AYSHA DEL TORO Attending Unavailable [facility] INTERNAL CORROSION SPECIALIST SHAUNA Primary Care Unavailable AYSHA DEL TORO Consulting Unavailable HEIKE ., DR GOMEZ Admitting Unavailable HOJeanette ., DR GOMEZ Attending Unavailable [place], INTERNAL CORROSION SPECIALIST SHAUNA Primary Care Unavailable HEIKE ., DR GOMEZ Consulting Unavailable ALVERTO, AYSHA Primary Care Unavailable GEORGE RODRIGUEZ Admitting Unavailable GEORGE RODRIGUEZ Attending Unavailable TANESHA, DR CAMILA Child Consulting Unavailable GEORGE RODRIGUEZ Consulting Unavailable Allergies Allergy Classification Reported Allergen(s) Allergy Type Date of Onset Reaction(s) Facility (1 source) Penicillins Drug allergy (disorder) 08-30-2016 [facility] Repository Problems Active Problems Problem Classification Problem Date Documented Date Episodic/Chronic Asthma (1 source) Unspecified asthma, uncomplicated; Translations: [UNSPECIFIED ASTHMA UNCOMPLICATED] Onset: 05-12-2022 Chronic Osteoarthritis (4 sources) Unspecified osteoarthritis, unspecified site; Translations: [UNSPECIFIED OSTEOARTHRITIS UNS SITE] Onset: 09-10-2021 Chronic Other aftercare (1 source) Other prison (current) drug therapy; 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] Onset: 05-12-2022 Episodic Other lower respiratory disease (4 sources) Pleurodynia; Translations: [PLEURODYNIA] Onset: 05-10-2022 Episodic Unclassified (4 sources) COUGH, UNSPECIFIED; Translations: [COUGH, UNSPECIFIED] Onset: 12-17-2021 Unclassified (1 source) CONTACT W/AND (SUSP) EXPOS COVID-19; Translations: [CONTACT W/AND (SUSP) EXPOS COVID-19] Onset: 12-17-2021 Viral infection (1 source) COVID-19; Translations: [COVID-19] Onset: 03-12-2022 Past or Other Problems Problem Classification Problem Date Documented Da te Episodic/Chronic Unclassified (1 source) COUGH, UNSPECIFIED; Translations: [COUGH, UNSPECIFIED] Onset: 03-07-2022 Results Test Name Value Interpretation Reference Range Facility CARDIAC STACI ADMITon 023 CK [Catalytic activity/Vol] 48 U/L Normal 26-192 [facility] Comment on above: Performed By: #### D DIM #### [facility] [address] [address] [address] Esthela Ott CK.MB [Mass/Vol] 2.77 ng/mL Normal <=3.60 [facility] Comment on above: Performed By: #### D DIM #### [facility] [address] [place] [address] Dr. Esthela Ott HSTROP <4.0 Normal 4.0-51.3 [facility] Comment on above: Result Comment: CUT- OFF POINTS HAVE BEEN ESTABLISHED BASED ON THE FOURTH UNIVERSAL DEFINITIONS OF MYOCARDIAL INFARCTION. THE UPPER REFERENCE LIMIT (URL) OF TROPONIN, DEFINED THE 99TH PERCENTILE OF cTnI DISTRIBUTION IN A REFERENCE POPULATION, HAS BEEN CONFIRMED THE DECISION THRESHOLD FOR MO DIAGNOSIS. Performed By: #### D DIM #### [facility] [address] [place] [address] Dr. Esthela Ott JOSE 37 ng/mL Normal 9-82 [facility] Comment on above: Performed By: #### D DIM #### [facility] [address] [address] [address] Esthela Ott CBC AUTO DIFFon 05-10-2022 BASO # 0.0 103/ul Normal 0.0-0.1 [facility] Comment on above: Performed By: #### C BC #### [facility] [address] [place] [address] Dr. Esthela Ott Basophils/100 WBC (Bld) 0.4 % Normal 0.2-2.0 [facility] Comment on above: Performed By: #### C BC #### [facility] [address] [place] [address] Dr. Esthela Ott EO # 0.5 103/ul Normal 0.0-0.7 [facility] Comment on above: Performed By: #### C BC #### [facility] [address] [place] [address] Dr. Esthela Ott Eosinophils/100 WBC (Bld) 5.7 % Normal 0.9-7.0 [facility] Comment on above: Performed By: #### C BC #### [facility] [address] [place] [address] Dr. Esthela Ott Erythrocyte distribution width (RBC) [Ratio] 14.2 % Normal 11.0-15.0 [facility] Comment on above: Performed By: #### C BC #### [facility] [address] [place] [address] Dr. Esthela Ott Hematocrit (Bld) [Volume fraction] 38.4 % Normal 36.0-48.0 [facility] Comment on above: Performed By: #### C BC #### [facility] [address] [place] [address] Dr. Esthela Ott Hemoglobin (Bld) [Mass/Vol] 12.8 g/dL Normal 12.0-16.0 [facility] Comment on above: Performed By: #### C BC #### [facility] [address] [place] [address] Dr. Esthela Ott IG # 0.03 10e3/ul Normal 0.00-0.03 [facility] Comment on above: Performed By: #### C BC #### [facility] [address] [place] [address] Dr. Esthela Ott IG % 0.3 % Normal 0.0-0.5 [facility] Comment on above: Performed By: #### C BC #### [facility] [address] [place] [address] Dr. Esthela Ott LYMPH # 1.9 103/ul Normal 1.2-3.8 [facility] Comment on above: Performed By: #### C BC #### [facility] [address] [place] [address] Dr. Esthela Ott Lymphocytes/100 WBC (Bld) 20.1 % Critically low 20.5-60.0 [facility] Comment on above: Performed By: #### C BC #### [facility] [address] [place] [address] Dr. Esthela Ott MANUAL DIFF REQ NO Normal [facility] Comment on above: Performed By: #### C BC #### [facility] [address] [place] [address] Dr. Esthela Ott MCH (RBC) [Entitic mass] 28.3 pg Normal 26.7-34.0 [facility] Comment on above: Performed By: #### C BC #### [facility] [address] [place] [address] Dr. Esthela Ott MCHC (RBC) [Mass/Vol] 33.3 g/dL Normal 29.9-35.2 [facility] Comment on above: Performed By: #### C BC #### [facility] [address] [place] [address] Dr. Esthela Ott MCV (RBC) [Entitic vol] 84.8 fL Normal 81.0-99.0 [facility] Comment on above: Performed By: #### C BC #### [facility] [address] [place] [address] Dr. Esthela Ott MONO # 0.6 103/ul Normal 0.3-0.8 [facility] Comment on above: Performed By: #### C BC #### [facility] [address] [place] [address] Dr. Esthela Ott Monocytes/100 WBC (Bld) 5.8 % Normal 1.7-12.0 [facility] Comment on above: Performed By: #### C BC #### [facility] [address] [place] [address] Dr. Esthela Ott NEUT # 6.5 103/ul Normal 1.4-6.5 [facility] Comment on above: Performed By: #### C BC #### [facility] [address] [place] [address] Dr. Esthela Ott Neutrophils/100 WBC (Bld) 67.7 % Normal 43.0-75.0 [facility] Comment on above: Performed By: #### C BC #### [facility] [address] [place] [address] Dr. Esthela Ott Platelet mean volume (Bld) [Entitic vol] 10.5 fL Normal 9.5-13.5 [facility] Comment on above: Performed By: #### C BC #### [facility] [address] [place] [address] Dr. Esthela Ott PLT 251 103/ul Normal 150-450 [facility] Comment on above: Performed By: #### C BC #### [facility] [address] [place] [address] Dr. Esthela Ott RBC 4.53 106/ul Normal 4.20-5.40 [facility] Comment on above: Performed By: #### C BC #### [facility] [address] [place] [address] Dr. Esthela Ott WBC 9.5 103/ul Normal 4.0-11.0 [facility] Comment on above: Performed By: #### C BC #### [facility] [address] [place] [address] Dr. Esthela Ott D-DIMERon 05-10-2022 D-DIMER 0.29 mg/L FEU Normal <=0.59 [facility] Comment on above: Performed By: #### D DIM #### [facility] [address] [place] [address] Dr. Esthela Ott D-DIMER COMMENTS SEE BELOW Normal [facility] Comment on above: Result Comment: Incr eases in D-Dimer concentration observed with thromboembolic events can be variable due to localization, size, and age of the thrombus. Therefore, a thromboembolic event cannot be diagnosed with certainty on the basis of the reference range. D-Dimers may also be elevated for a variety of disorders including: advanced age, , coronary disease, cancer, liver disease, infection, inflammation, hematoma, DIC, trauma, post-surgery, diabetes, thrombolytic or anticoagulant therapy, stress, and generalized hospitalization. Performed By: #### D DIM #### [facility] [address] [place] [address] Dr. Esthela Ott ER URINE PROFILEon 3 Bilirubin Ql (U) Negative Normal NEGATIVE [facility] Comment on above: Performed By: #### E RUR #### [facility] [address] [place] [address] Dr. Esthela Ott Clarity (U) CLEAR Normal CLEAR [facility] Comment on above: Performed By: #### E RUR #### [facility] [address] [place] [address] Dr. Esthela Ott Color (U) LT. YELLOW Normal YELLOW [facility] Comment on above: Performed By: #### E RUR #### [facility] [address] [place] [address] Dr. Esthela RUANO A micrscopic examina tion will be performed if indicated. Normal [facility] Comment on above: Performed By: #### E RUR #### [facility] [address] [place] [address] Dr. Esthela Ott Glucose Ql (U) Negative Normal NEGATIVE [facility] Comment on above: Performed By: #### E RUR #### [facility] [address] [place] [address] Dr. Esthela Ott Hemoglobin Ql (U) Negative Normal NEGATIVE [facility] Comment on above: Performed By: #### E RUR #### [facility] [address] [place] [address] Dr. Esthela Ott Ketones Ql (U) Negative Normal NEGATIVE [facility] Comment on above: Performed By: #### E RUR #### [facility] [address] [place] [address] Dr. Esthela Ott LEUKOCYTES Negative Normal NEGATIVE [facility] Comment on above: Performed By: #### E RUR #### [facility] [address] [place] [address] Dr. Esthela Ott Nitrite Ql (U) Negative Normal NEGATIVE [facility] Comment on above: Performed By: #### E RUR #### [facility] [address] [place] [address] Dr. Esthela Ott pH (U) 6.0 [pH] Normal 5-9 [facility] Comment on above: Performed By: #### E RUR #### [facility] [address] [place] [address] Dr. Esthela Ott SPEC GRAVITY 1.020 Normal 1.005-<=1.02 5 [facility] Comment on above: Performed By: #### E RUR #### [facility] [address] [place] [address] Dr. Esthela Ott UA PROTEIN Negative Normal NEGATIVE/ TRACE [facility] Comment on above: Performed By: #### E RUR #### [facility] [address] [place] [address] Dr. Esthela Ott UR MICRO IND NOT INDICATED Normal [facility] Comment on above: Performed By: #### E RUR #### [facility] [address] [place] [address] Dr. Esthela Ott Urobilinogen Qn (U) 0.2 {Mulugeta'U}/dL Normal 0.2 - 1. 0 [facility] Comment on above: Performed By: #### E RUR #### [facility] [address] [place] [address] Dr. Esthela Ott URon 05-10-2022 , QUAL Negative Normal NEGATIVE [facility] Comment on above: Performed By: #### P REGU #### [facility] [address] [place] [address] Dr. Esthela Ott PROF 14(COMP METB)on 023 Albumin [Mass/Vol] 3.2 g/dL Critically low 3.4-5.0 [facility] Comment on above: Performed By: #### C ALTA CMP #### [facility] [address] [place] [address] Dr. Esthela Ott Albumin/Globulin [Mass ratio] 0.8 {ratio} Normal [facility] Comment on above: Performed By: #### C ALTA, CMP #### [facility] [address] [place] [address] Dr. Esthela Ott ALP [Catalytic activity/Vol] 99 U/L Normal 46-116 [facility] Comment on above: Performed By: #### C ALTA, CMP #### [facility] [address] [address] [address] Esthela Ott ALT [Catalytic activity/Vol] 25 U/L Normal 14-59 [facility] Comment on above: Performed By: #### C ALTA, CMP #### [facility] [address] [address] [address] Esthela Ott Anion gap [Moles/Vol] 13.0 mmol/L Normal [facility] Comment on above: Performed By: #### C ALTA, CMP #### [facility] [address] [place] [address] Dr. Esthela Ott AST [Catalytic activity/Vol] 19 U/L Normal 15-37 [facility] Comment on above: Performed By: #### C ALTA, CMP #### [facility] [address] [place] [address] Dr. Esthela Ott Bilirubin [Mass/Vol] 0.3 mg/dL Normal 0.2-1.0 [facility] Comment on above: Performed By: #### C ALTA, CMP #### [facility] [address] [place] [address] Dr. Esthela Ott Calcium [Mass/Vol] 9.0 mg/dL Normal 8.5-10.1 [facility] Comment on above: Performed By: #### Syeda HOLM, CMP #### [facility] [address] [address] [address] Esthela Ott Chloride [Moles/Vol] 103 mmol/L Normal 98-107 [facility] Comment on above: Performed By: #### C ALTA, CMP #### [facility] [address] [address] [address] Esthela Ott CO2 [Moles/Vol] 26.8 mmol/L Normal 21.0-32.0 [facility] Comment on above: Performed By: #### Syeda HOLM, CMP #### [facility] [address] [place] [address] Dr. Esthela Ott Creatinine [Mass/Vol] 0.71 mg/dL Normal 0.55-1.02 [facility] Comment on above: Performed By: #### C ALTA, CMP #### [facility] [address] [address] [address] Esthela Ott EGFR-AF FIJIAN >60 Normal >=60 [facility] Comment on above: Performed By: #### C ALTA, CMP #### [facility] [address] [address] [address] Esthela Ott EGFR-NON AF FIJIAN >60 Normal >=60 [facility] Comment on above: Performed By: #### C ALTA, CMP #### [facility] [address] [address] [address] Esthela Ott Globulin (S) [Mass/Vol] 3.8 g/dL Normal [facility] Comment on above: Performed By: #### C ATLA, CMP #### [facility] [address] [address] [address] Esthela Ott Glucose [Mass/Vol] 135 mg/dL Critically high 74-106 [facility] Comment on above: Performed By: #### C ALTA, CMP #### [facility] [address] [address] [address] Esthela Ott Potassium [Moles/Vol] 3.8 mmol/L Normal 3.5-5.1 [facility] Comment on above: Performed By: #### C ALTA, CMP #### [facility] [address] [address] [address] Esthela Ott Protein [Mass/Vol] 7.0 g/dL Normal 6.4-8.2 [facility] Comment on above: Performed By: #### C ALTA, CMP #### [facility] [address] [address] [address] Esthela Ott Sodium [Moles/Vol] 139 mmol/L Normal 136-145 [facility] Comment on above: Performed By: #### C ALTA, CMP #### [facility] [address] [address] [address] Esthela Ott Urea nitrogen [Mass/Vol] 8.0 mg/dL Normal 7.0-18.0 [facility] Comment on above: Performed By: #### C ALTA, CMP #### [facility] [address] [address] [address] Esthela Ott Urea nitrogen/Creatinine [Mass ratio] 11.3 mg/mg Normal [facility] Comment on above: Performed By: #### C ALTA, CMP #### [facility] [address] [address] [address] Esthela Ott XR CHEST 2 Von 05-10-2022 XR CHEST 2 V EXAMINATION: XR CHES T 2 V HISTORY: SHORTNESS OF BREATH COMPARISON: No relevant comparison available. TECHNIQUE: PA and lateral FINDINGS: LUNGS: No significant pulmonary parenchymal abnormalities. VASCULATURE: No increased pulmonary vasculature. PLEURA: No pneumothorax, effusion, or pleural thickening. CARDIAC: No cardiomegaly or cardiac silhouette abnormality. MEDIASTINUM: No visible mass or adenopathy. BONES: No fracture or visible bone lesion. OTHER: Negative. IMPRESSION: No acute disease. Electronically authenticated by: CAMILA ALMENDAREZ Date: 2022-05-10 13:50 Normal [facility] Covid-19 PCR ([facility])on 02-24 SARS-CoV-2 (COVID-19) RNA ANTHONY+probe Ql (Unsp spec) Detected Critically abnormal NOT DETECTED [facility] Comment on above: Result Comment: This test is not yet approved or cleared by the [place] FDA. When there are no FDA-approved or cleared tests available, and other criteria are met, FDA can make tests available under an emergency access mechanism called an Emergency Use Authorization (EUA). The EUA for this test is supported by the [place] of Health and Human Service's (HHS's) declaration that circumstances exist to justify the emergency use of in vitro diagnostics for the detection and/or diagnosis of the virus that causes COVID-19. This EUA will remain in effect (meaning this test can be used) for the duration of the COVID-19 declaration justifying emergency of IVDs, unless it is terminated or revoked by FDA (after which the test may no longer be used). Performed By: #### C VDTB #### [facility] [address] [place] [address] Dr. Esthela Ott INFLUENZA A AND B AGon 03-07 INFLUANEGH SEE BELOW Normal [facility] Comment on above: Result Comment: Nega tive for Flu A protein angiten. Infection due to Flu A cannot be ruled out. Flu A angiten in the sample may be below the detection limit of the test. Performed By: #### I NFLUAB #### [facility] [address] [place] [address] Dr. Esthela Ott INFLUBNEGH SEE BELOW Normal [facility] Comment on above: Result Comment: Nega tive for Flu B protein antigen. Infection due to Flu B cannot be ruled out. Flu B antigen in the sample may be below the detection limit of the test. Performed By: #### I NFLUAB #### [facility] [address] [place] [address] Dr. Esthela Ott INFLUENZA A AG Negative Normal NEGATIVE SEE COMMENT [facility] Comment on above: Performed By: #### I NFLUAB #### [facility] [address] [place] [address] Dr. Esthela Ott INFLUENZA B AG Negative Normal NEGATIVE SEE COMMENT [facility] Comment on above: Performed By: #### I NFLUAB #### [facility] [address] [place] [address] Dr. Esthela Ott INTERNAL CONTROLS Within Normal Limits Normal Wi thin Normal Limits [facility] Comment on above: Performed By: #### I NFLUAB #### [facility] [address] [place] [address] Dr. Esthela Ott SYMPTOMATIC COVID-19 ANTIGEN on 03-07-2022 EUA Statement SEE BELOW Normal [facility] Comment on above: Result Comment: This test has not been FDA cleared or approved, but has been authorized by the FDA under an Emergency Use Authorization (EUA) for use by authorized laboratories certified under CLIA that meet the requirements to perform moderate or high complexity testing. This test has been authorized only for the detection of proteins from SARS-CoV-2, not for any other viruses or pathogens. The emergency use of this test is authorized for the duration of the declaration that circumstances exist justifying the authorization of emergency use of in vitro diagnostic tests for detection and/or diagnosis of Covid-19 under section 564(b)(1) of the Act, 21 U.S.C. 360bbb-3(b)(1), unless the declaration is terminated or authorization is revoked sooner. Performed By: #### D DIM #### [facility] [address] [address] [address] Esthela Ott SARS-CoV-2 (COVID-19) RNA ANTHONY+probe Ql (Unsp spec) Negative Normal NEGATIVE [facility] Comment on above: Performed By: #### D DIM #### [facility] [address] [address] [address] Esthela Ott Covid-19 PCR ([facility])on 11-26 SARS-CoV-2 (COVID-19) RNA ANTHONY+probe Ql (Unsp spec) Not detected Normal NOT DETECTED [facility] Comment on above: Result Comment: This test is not yet approved or cleared by the [place] FDA. When there are no FDA-approved or cleared tests available, and other criteria are met, FDA can make tests available under an emergency access mechanism called an Emergency Use Authorization (EUA). The EUA for this test is supported by the [place] of Health and Human Service's (HHS's) declaration that circumstances exist to justify the emergency use of in vitro diagnostics for the detection and/or diagnosis of the virus that causes COVID-19. This EUA will remain in effect (meaning this test can be used) for the duration of the COVID-19 declaration justifying emergency of IVDs, unless it is terminated or revoked by FDA (after which the test may no longer be used). When diagnostic testing is negative, the possibility of a false negative should be considered in the context of a patient's recent exposures and the presence of clinical signs and symptoms consistent with SARS-CoV-2. Performed By: #### D DIM #### [facility] [address] [place] [address] Dr. Esthela Ott WILLIAM by IFAon 09-11-2021 Antinuclear Antibodies, IFA Negative Normal [facility] Comment on above: Result Comment: Nega tive <1:80 Borderline 1:80 Positive >1:80 ICAP nomenclature: AC-0 For more information about Hep-2 cell patterns use ANApatterns.org, the official website for the International Consensus on Antinuclear Antibody (WILLIAM) Patterns (ICAP). Performed By: #### D DIM #### [facility] [address] [place] [address] Dr. Esthela Ott ANTISTREPTOLYSIN O AB (ASO)o n 09-11-2021 Antistreptolysin O Ab <20.0 Normal 0.0-200.0 [facility] Comment on above: Performed By: #### D DIM #### [facility] [address] [place] [address] Dr. Esthela Ott RHEUMATOID FACTORon 09-12-19 22 RA Latex Turbid. 15.2 IU/mL Critically high <14.0 [facility] Comment on above: Performed By: #### R F #### [facility] [address] [place] [address] Dr. Esthela Ott CRPon 09-10-2021 CRP 3.4 mg/dL Critically high <=1.0 [facility] Comment on above: Performed By: #### C RP, URIC #### [facility] [address] [place] [address] Dr. Esthela Ott URIC ACID SERUMon 09-10-2021 Urate [Mass/Vol] 5.2 mg/dL Normal 2.6-6.0 [facility] Comment on above: Performed By: #### C RP, URIC #### [facility] [address] [place] [address] Dr. Esthela Ott COVID-19 Antigenon 2 COVID-19 Antigen Healthcare Worker?: N Kristyn Reference Kristyn Reference Negative SARS-CoV+SARS-CoV-2 (COVID-19) Ag [Presence] in Respiratory specimen by Rapid immunoassay Negative for SARS Antigen by FABIOLA COVID19 Blank Space ------ Kristyn Disclaimer Negative results, from patients with symptom Kristyn Disclaimer onset beyond five days, should be treated as Kristyn Disclaimer presumptive and confirmation with a molecular Kristyn Disclaimer assay, if necessary, for patient management, Kristyn Disclaimer may be performed. Negative results do not rule Kristyn Disclaimer out COVID-19 and should not be used as the sole Kristyn Disclaimer basis for treatment or patient management Kristyn Disclaimer decisions, including infection control decisions. Kristyn Disclaimer Negative results should be considered in the Kristyn Disclaimer context of a patient's recent exposures, history Kristyn Disclaimer and the presence of clinical signs and symptoms Kristyn Disclaimer consistent with COVID-19. COVID19 Blank Space ------ Kristyn Disclaimer The Kristyn SARS Antigen FABIOLA does not differentiate Kristyn Disclaimer between SARS-CoV and SARS-CoV-2. COVID19 Blank Space ------ Kristyn Disclaimer This test was developed and its performance Kristyn Disclaimer characteristic determined by [employer] and Kristyn Disclaimer validated at [facility]. This Kristyn Disclaimer test has not been FDA cleared or approved. This Kristyn Disclaimer test has been authorized by FDA under an Emergency Use Kristyn Disclaimer Authorization (EUA). This test has been validated Kristyn Disclaimer in accordance with the FDA's Guidance Document (Policy Kristyn Disclaimer for Diagnostics Testing in Laboratories Certified to Kristyn Disclaimer Perform High Complexity Testing under CLIA prior to Kristyn Disclaimer Emergency Use Authorization for Coronavirus Kristyn Disclaimer iseas2019 during the Public Health Emergency) Kristyn Disclaimer issued on June 27, 2019. This test is only authorized Kristyn Disclaimer for the duration of time the declaration that Kristyn Disclaimer circumstances exist justifying the authorization of Kristyn Disclaimer the emergency use of in vitro diagnostic tests for Kristyn Disclaimer detection of SARS-CoV-2 virus and/or diagnosis of Kristyn Disclaimer COVID-19 infection under section 564(b)(1) of the Kristyn Disclaimer Act, 21 U.S.C. 360bbb-3(b)(1), unless the Kristyn Disclaimer authorization is terminated or revoked sooner. PERFORMED BY: [place] [address] PATHOLOGIST FIELD ARTILLERY OPERATIONS SPECIALIST LUIGI HERRERA M.D. Normal [facility] Comment on above: Performed By: #### S BREA COVID-19 KRISTYN #### [address] Kristyn Ag Negativeon 04-07-19 22 Kristyn Ag Negative Negative Normal Negative [facility] Comment on above: Result Comment: This is a duplicate Kristyn SARS Antigen (FABIOLA) result to be used for statistical tracking purpose only. PERFORMED BY: [place] [address] PATHOLOGIST FIELD ARTILLERY OPERATIONS SPECIALIST LUIGI HERRERA M.D. Performed By: #### S BREA COVID-19 KRISTYN #### [facility] [address] [place], [place] [id number] [facility] SURF MARKERS >15,PATH REVon 08-28-2020 PATH REV. 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 Performed By: #### P R194 #### [facility] [address] [place] [address] SURFACE MARKERS LYMPHOMA NARANJO Autumn 08-28-2020 DIAGNOSIS SEE BELOW Normal [facility] Comment on above: Order Comment: 9463 B: Right lacrimal biopsyDX: Dacryoadenitis; rule out lymphoma Result Comment: No c lonal B cell or abnormal T cell population identified. Performed By: #### L YPAN ####[id number], [place] Lymphocytes/100 WBC (Bld) 2 % Normal [facility] Comment on above: Order Comment: 9463 B: Right lacrimal biopsyDX: Dacryoadenitis; rule out lymphoma Result Comment: Over 90% of the cells are T cells. CD4:CD8 of about 5:3. Performed By: #### L YPAN ####[id number] [place] [address] NOTE SEE BELOW Normal [facility] Comment on above: Order Comment: 9463 B: Right lacrimal biopsyDX: Dacryoadenitis; rule out lymphoma Result Comment: Clifton harris with separate surgical pathology report. Performed By: #### L YPAN ####[id number] [place] [address] FLOW CYTOMETRY TESTon 2020 FLOW TEST ORDERED LYMPHOMA PANEL Normal [facility] Comment on above: Order Comment: 9463 B: Right lacrimal biopsyDX: Dacryoadenitis; rule out lymphoma Performed By: #### F CTST ####[id number] [place] [address] SURF MARKERS 9-15,PATH REVon 08-27-2020 PATH REV.9-15 MARKERS RUBENSABRAHAM Normal [facility] Comment on above: Order Comment: 9463 A: Left lacrimal biopsy DX: Dacryoadenitis; rule out lymphoma Result Comment: By h er/his signature above, the Pathologist listed as making the final interpretation certifies that she/he has personally reviewed this case. Performed By: #### P R192 #### [facility] [address] [place] [address] SURFACE MARKERS LYMPHOMA CUT DOWN PANELon 08-27-2020 DIAGNOSIS SEE BELOW Normal [facility] Comment on above: Order Comment: 9463 A: Left lacrimal biopsy DX: Dacryoadenitis; rule out lymphoma Result Comment: No c lonal B cell or abnormal T cell population identified. Performed By: #### L CPAN #### [facility] [address] [place] [address] NOTE SEE BELOW Normal [facility] Comment on above: Order Comment: 9463 A: Left lacrimal biopsy DX: Dacryoadenitis; rule out lymphoma Result Comment: Clifton harris with separate surgical pathology report. Performed By: #### L CPAN #### [facility] [address] [place] [address] SURFACE MARKERS LYMPHOMA NARANJO Autumn 08-27-2020 CELL COUNT 2.2 x10E9/L Normal [facility] Comment on above: Order Comment: 9463 B: Right lacrimal biopsyDX: Dacryoadenitis; rule out lymphoma Performed By: #### L YPAN ####[id number] [place] [address] METHOD SEE BELOW Normal [facility] Comment on above: Order Comment: 9463 B: Right lacrimal biopsyDX: Dacryoadenitis; rule out lymphoma Result Comment: This test is a multicolor, whole blood lysis assay. It was developed and its performance characteristics determined by the Department of Pathology, [facility], and has not been cleared or approved by the U.S. Food and Drug Administration. The laboratory is regulated under CLIA as qualified to perform high complexity testing. This test is used for clinical purposes. It should not be regarded as investigational or for research. Immunophenotypic analysis was performed using the following antibodies: CD45, CD71, CD30, CD40, CD95, CD14, CD56, CD7, CD4, CD8, CD3, CD2, CD26, CD5, CD43, CD23, CD20, CD19, CD11c, CD180, CD1c, CD79b, [place], Lambda, CD38, CD10. Additional Antibodies: TCRB1, TCR gamma/delta Performed By: #### L YPAN ####[id number] [place] [address] NUMBER OF CELLS COLLECTED 17,000-59,000 Normal [facility] Comment on above: Order Comment: 9463 B: Right lacrimal biopsyDX: Dacryoadenitis; rule out lymphoma Performed By: #### L YPAN ####[id number] [id number] SPECIMEN SITE Right lacrimal Biopsy Normal [facility] Comment on above: Order Comment: 9463 B: Right lacrimal biopsyDX: Dacryoadenitis; rule out lymphoma Performed By: #### L YPAN ####[id number] [id number] SPECIMEN VIABILITY Acceptable Normal [facility] Comment on above: Order Comment: 9463 B: Right lacrimal biopsyDX: Dacryoadenitis; rule out lymphoma Performed By: #### L YPAN ####[id number] [id number] FLOW CYTOMETRY TESTon 2020 FLOW TEST ORDERED LYMPHOMA CUTDOWN PANEL Normal [facility] Comment on above: Order Comment: 9463 A: Left lacrimal biopsy DX: Dacryoadenitis; rule out lymphoma Performed By: #### F CTST #### [facility] [address] [place] [id number] SURFACE MARKERS LYMPHOMA CUT DOWN PANELon 08-26-2020 SPECIMEN VIABILITY Acceptable Normal [facility] Comment on above: Order Comment: 9463 A: Left lacrimal biopsy DX: Dacryoadenitis; rule out lymphoma Performed By: #### L CPAN #### [facility] [address] [place] [id number] CELL COUNT 0.48 x10E9/L Normal [facility] Comment on above: Order Comment: 9463 A: Left lacrimal biopsy DX: Dacryoadenitis; rule out lymphoma Performed By: #### L CPAN #### [facility] [address] [place] [address] Lymphocytes/100 WBC (Bld) 2 % Normal [facility] Comment on above: Order Comment: 9463 A: Left lacrimal biopsy DX: Dacryoadenitis; rule out lymphoma Performed By: #### L CPAN #### [facility] [address] [place] [address] METHOD SEE BELOW Normal [facility] Comment on above: Order Comment: 9463 A: Left lacrimal biopsy DX: Dacryoadenitis; rule out lymphoma Result Comment: This test is a multicolor, whole blood lysis assay. It was developed and its performance characteristics determined by the Department of Pathology, [facility], and has not been cleared or approved by the U.S. Food and Drug Administration. The laboratory is regulated under CLIA as qualified to perform high complexity testing. This test is used for clinical purposes. It should not be regarded as investigational or for research. Immunophenotypic analysis was performed using the following antibodies: CD3, CD4, CD5, CD7, CD8, CD10, CD19, CD20, CD23, CD38, CD43, CD45, CD56, KAPPA, LAMBDA. Additional Antibodies: TCRB1, TCR gamma-delta Performed By: #### L CPAN #### [facility] [address] [place] [address] NUMBER OF CELLS COLLECTED 101-454 Normal [facility] Comment on above: Order Comment: 9463 A: Left lacrimal biopsy DX: Dacryoadenitis; rule out lymphoma Performed By: #### L CPAN #### [facility] [address] [place] [address] SPECIMEN SITE LEFT LACRIMAL BX Normal [facility] Comment on above: Order Comment: 9463 A: Left lacrimal biopsy DX: Dacryoadenitis; rule out lymphoma Performed By: #### L CPAN #### [facility] [address] [place] [address] FLOW CYTOMETRY TESTon 2020 SOURCE TISSUE Normal [facility] Comment on above: Order Comment: 9463 B: Right lacrimal biopsyDX: Dacryoadenitis; rule out lymphoma Performed By: #### F CTST ####[id number] [place] [address] SOURCE TISSUE Normal [facility] Comment on above: Order Comment: [id number] A: Left lacrimal biopsy DX: Dacryoadenitis; rule out lymphoma Performed By: #### F CTST #### [facility] [address] [place] [address] GLUCOSE-POCTon 08-25-2020 Glucose [Mass/Vol] 137 mg/dL High 74 - 99 [facility] Comment on above: Result Comment: This assay has not been validated for use with critically ill patients. Clinical correlation or lab draw is recommended. Performed By: #### G WISAM #### [facility] [address] [facility] [place] [address] HCG,URINEon 08-25-2020 Beta HCG ( test) Ql (U) Negative Normal Negative [facility] Comment on above: Result Comment: POCT Performed By: #### H CGU #### [facility] [address] [place] [address] Patient Profile - Preop v2on 08-25-2020 Patient Profile - Preop v2 Profile: Initial Info: How to be Addressedjessica Spoken Language PreferredEnglish Are you currently using the Personal Electronic Health Record or Splash.[facility]no Are you interested in learning more about [facility] for the management of your healthdeclined Stated Reason for Admissionbilateral eye lid surgery Primary Contact Name and Numbersee chart Patient Belongingsremains with patient Medications Brought to Hospitalno General Health: Patient or Family Member Reaction to Anesthesiano previous reaction Health Mgmt: Symptoms/Conditions Managed at [facility] Are You Currently Breastfeedingno Barriers to Managing Healthnone Relationship/Environ: Resource/Environmental Concernsnone Substance: Current or Former Substance Use never: Cigarette/Tobacco, e-Cigarette/Vaping YES: Street Drugs Street Drug/Inhalant/ Medication Use Statuscurrent street drug/inhalant/medication abuse Street Drug/Medication/ Inhalant Typemarijuana Street Drug/Medication/ Inhalant Use Additional Commentsoccasional Risk Screens: COVID-19 Screening Completedno exposure or symptoms Advance Directive/DNRno During the past month, have you often been bothered by feeling down, depressed or hopelessno During the past month, have you often had little interest or pleasure in doing thingsno Have you had any thoughts of harming yourselfno Have you had any thoughts of harming anyone elseno Are you or have you been threatened or abused physically,emotionally or sexually abused by anyoneno Do you feel UNSAFE going back to the place you are livingno Patient is Able to be Assessed for Learningyes Factors Influencing Readiness to Learnacuteness of illness Factors that Impact Ability to Learnnone Devices/Methods Used to Communicatenone Learning Preferencesverbal instruction; written material; individual instruction Cultural Considerationsnone Developmental Considerationsnone Latter Day Considerationsnone Other learner availableno Falls RiskPatient location auto qualifies him/her for HIGH RISK. Are there any cultural, spiritual, sabianism practices/values/needs that are important for us to knowno Pain Scalenumerical 0-10 Pain Scale Educationteaching provided Current Pain Level0 = None Acceptable Pain Level0 = None Chronic Painno Information Review: Allergies, Home Meds and Significant Events have been Reviewed and Verified with Patient/Familyyes Allergy, Intolerance, Adverse Event: Allergies: penicillin: Drug, Unknown, Active Significant Events: 25-Aug-2020 anxiety: Past Medical History, Active 25-Aug-2020 asthma: Past Medical History, Active 25-Aug-2020 pre diabetes: Past Medical History, Active Electronic Signatures: Luli Lira) (Signed 25-Aug-2020 09:30) Authored: Initial Info, General Health, Health Mgmt, Relationship/Environ, Substance, Risk Screens, Additional Information Last Updated: 25-Aug-2020 09:30 by Luli Lira) [facility] Preop Checkliston 08-25-2020 Preop Checklist Preop Checklist: Preop Checklist: Arrival [id number] Procedure Typebilateral eyelid surgery NPO [id number] SCD's Appliednot applicable Valuables Securedunder cart Cardiovascular Assessment: Extremitieswarm Respiratory Assessment: Respirationsunlabored Neurological Assessment: Level of Consciousnessalert Able to Express Selfyes Age Appropriateyes Emotional Statuscalm Preop Education: Surgical Site Infection Preventionyes Pain Scales and Managementyes Language / Communication: Language / CommunicationEnglish Electronic Signatures: Luli Lira) (Signed 25-Aug-2020 09:32) Authored: Preop Checklist Last Updated: 25-Aug-2020 09:32 by Luli Lira (PILO) Normal [facility] Surgical Pathology Depar olganton 08-25-2020 [facility] Surgical Pathology Department Name RASHIDA ROBLES Pathologist: ROEL ROSARIO JR, MD, PhD. Date of Procedure: 08/25/2020 Date Received: 08/25/2020 Date Reported 08/28/2020 Submitting Physician: SONALI MACIAS MD Location: [facility] Other External # FINAL DIAGNOSIS A AND B. LACRIMAL GLAND, RIGHT AND LEFT, BIOPSIES: -- NON-NECROTIZING GRANULOMATOUS INFLAMMATION WITH SCLEROSIS, SEE NOTE NOTE: Histologic sections demonstrate non-necrotizing granulomas, a reactive lymphoplasmacytic infiltrate and sclerosis. Sclerosis is more prominent and inflammatory cells are less prominent in the right lacrimal biopsy (part B) compared with the left. Stains for AFB and GMS were negative for organisms. Immunostains do not support IgG4 related disease. Flow cytometry on both specimens (see separate full reports) do not show a clonal B cell or abnormal T cell population. Based on the clinical and histopathologic findings, sarcoidosis is a likely cause. However the differential diagnosis also includes infectious and other non-infectious inflammatory processes with a granulomatous component. The significance of the reported positive ANCA (increased anti-proteinase 3) is uncertain as histopathologic features of a vasculitis are not seen. Clinical correlation recommended. surgery consultant: Dr. Naomi Dunn (Eye pathologist, [facility]) IMMUNOHISTOCHEMISTRY AND IN SITU HYBRIDIZATION (SARITA): Stains performed on block A1 reveal: CD20 AND CD3: Lymphocytic infiltrate is composed of an admixture of B and T cells respectively. CD138: Highlights plasma cells [place] AND Lambda SARITA: Plasma cell population appears polyclonal IgG4 AND IgG: Many IgG positive plasma cells with rare IgG4 positive plasma cells Immunohistochemical stains were performed in addition to flow cytometric immunophenotypic studies to optimally correlate the morphology with the phenotype of the cellular constituents observed by light microscopy. This afforded the most accurate characterization of the cells and was medically necessary for the best possible diagnosis. Electronically Signed Out By ROEL ROSARIO JR, MD, PhD./VALARIE By the signature on this report, the individual or group listed as making the Final Interpretation/Diagnosis certifies that they have reviewed this case. Clinical History: Physician Contact Number: [id number] Fixative (A): Formalin Fixative (B): Formalin Clinical Diagnosis History: Dacryoadenitis Specimens Submitted As: A: LEFT LACRIMAL BIOPSY B: RIGHT LACRIMAL BIOPSY Gross Description: A: Received in formalin, labeled with the patient's name and hospital number and A, L , is a fragment of simon-yellow soft tissue measuring 1.2 x 1.0 x 0.5 cm. The apparent resection margin is inked blue and the specimen is sectioned. Also received is a portion of the specimen in RPMI for flow cytometry. The specimen is entirely submitted in one cassette. SBS B: Received in formalin, labeled with the patient's name and hospital number and B, right , is a fragment of simon-pink soft tissue measuring 1.0 x 0.7 x 0.5 cm. The apparent resection margin is inked blue and the specimen is sectioned. Also received is a portion of the specimen in RPMI for flow cytometry. The specimen is entirely submitted in one cassette. [facility]/08/25/2020 The assays/tests were performed with appropriate positive and negative controls which stained appropriately.One or more of the reagents used to perform assays on this specimen MAY have contained components considered to be Laboratory Developed Tests (LDT). LDT's have not been cleared or approved by the U.S. Food and Drug Administration. These assays/tests were developed and their performance characteristics determined by the Department of Pathology Immunohistochemistry Labs at [facility]. The FDA does not require this test to go through premarket FDA review. This test is used for clinical purposes. It should not be regarded as investigational or for research. This laboratory is certified under the Clinical Laboratory Improvement Amendments (CLIA) as qualified to perform high complexity clinical laboratory testing. The assays/tests were performed with appropriate positive and negative controls which stained appropriately. [facility] Department of Pathology [address] [place] [address] Normal [facility] Comment on above: Performed By: #### U [facility] #### [facility] Surgical Pathology Department [address] [place] [address] CORONAVIRUS 2019, SCREEN ASY MPTOMATICon 08-23-2020 SARS-CoV-2 (COVID-19) RNA ANTHONY+probe Ql (Unsp spec) Not detected Normal Not Detected [facility] Comment on above: Result Comment: . This assay is designed to detect SARS-CoV-2 based on replication of specific regions of the RNA from the SARS-CoV-2 virus. A Not Detected result does not preclude 2019-nCoV infection since the adequacy of sample collection and/or low viral burden may result in presence of viral nucleic acids below the clinical sensitivity of this test method. Fact sheet for providers: https://www.fda.gov/media/037294/download Fact sheet for patients: https://www.fda.gov/media/844020/download This test has received FDA Emergency Use Authorization [EUA] and has been verified by [facility] ([facility]). This test is only authorized for the duration of time that circumstances exist to justify the authorization of the emergency use of in vitro diagnostic tests for the detection of SARS-CoV-2 virus and/or diagnosis of COVID-19 infection under section 564(b)(1) of the Act, 21 U.S.C. 360bbb-3(b)(1), unless the authorization is terminated or revoked sooner. [facility] is certified under CLIA-88 as qualified to perform high complexity testing. Testing is performed in the [facility] laboratories located at [address] [place] [address]. Performed By: #### C OVSC #### [address] [place] [address] Covid 19 Resultson 1 SARS-CoV-2 (COVID-19) RNA ANTHONY+probe Ql (Unsp spec) NEGATIVE COVID-19 Test Coronaviruses are common world-wide and are the cause of many common colds. SARS-COV2 is a new coronavirus that began circulating worldwide in 2019 so we are calling it COVID-19. It has been estimated that four out of five patients with COVID-19 will recover at home without the need for medical attention. Symptoms of COVID-19 may include cough, fever, shortness of breath, loss of taste or smell and other flu-like symptoms including chills, sore muscles, sore throat, and headache. Severe illness is more common in older people and people with other health problems such as high blood pressure, obesity, and immune system problems. If the test is positive, you have COVID-19. You will be contacted by the ordering physicians office and instructed to remain on home isolation, in accordance with CDC guidelines. You may also be contacted by the [facility] to see if any of your close contacts may have been exposed to the virus and need to quarantine. If the test is negative, you likely do not have COVID-19 at this time, but you still may have a different illness that can spread to other people (like Influenza, or the Flu) and could still be at risk for getting COVID-19. We recommend that you stay away from other people to limit the spread of illness until your symptoms are improving and you are fever-free for 24 hours without the use of fever lowering medications such as acetaminophen or ibuprofen. No test is 100% accurate so if you are still concerned you may have COVID-19, talk to your doctor about the need to continue to stay away from others. Medicines Unless your provider told you not to use the following: Acetaminophen (Tylenol and others) is generally safe. Anti-inflammatory medications, such as Ibuprofen (Advil or Motrin) or Naproxen (Aleve) can also be used. Vkyv-hog-wmgcvdi cough and cold medicines can be used according to the instructions on the package. Some tkpt-wcj-zmqymvp medicines also contain acetaminophen. Make sure you are not taking more than your recommended dose. For those not hospitalized, there is no specific treatment available for this illness. Antibiotics do not treat Coronaviruses. Follow-Up Follow up with your doctor by scheduling a virtual visit or consider follow-up at one of our urgent care fever clinics. If you are having difficulty breathing, or are very weak and having difficulty standing, this is a medical emergency. Call 911 or have someone take you to the nearest emergency room immediately. If possible, wear a facemask. Additional guidance from the CDC for patients who tested POSITIVE for COVID-19 How to isolate: Isolate yourself in a specific room at home and limit your contact with others. Use a separate bathroom from other members of the household, when possible. Leave home only to get essential medical care. Do not go to work, school or public areas. Avoid using public transportation, ride-sharing, or taxis. Restrict contact with pets and other animals. If you must care for your pet or be around animals while you are sick, wash your hands before and after your interaction and wear a facemask. Make sure that shared spaces in the home have good airflow, such as by an air conditioner or an opened window, weather permitting. Personal Hygiene Procedures: Wear a face mask when in the same room as other people or pets. If a face mask interferes with your breathing, others should wear a mask when sharing space with you. Frequent hand-washing: wash your hands with soap and water for at least 20 seconds. If soap and water are not available, use alcohol-based hand flat surfacer. Avoid touching your eyes, nose, and mouth with unwashed hands. Household Hygiene Procedures: Avoid sharing personal household items such as dishes, glassware, cups, eating utensils, towels or bedding with other people or pets in your home. After use, these items should be washed with soap and hot water. Disinfect all high-touch surfaces every day with antibacterial cleaning solutions such as Lysol wipes, bleach, cleansers, etc. High-touch surfaces include tabletops, doorknobs, bathroom fixtures, toilets, phones, keyboards, tablets and bedside tables. Immediately clean any surfaces that may have blood, poop or body fluids on them, using antibacterial cleaning solutions such as Lysol wipes, bleach, cleansers, etc. If clothing or bedding come into contact with blood, poop or body fluids, they should be washed immediately. Follow the directions on the laundry detergent and clothing labels but hot water is recommended when possible. Stopping home isolation precautions: If possible, consult your doctor before stopping home isolation precautions. According to the CDC, you can discontinue home isolation precautions when you have met both of these criteria: Your fever and respiratory symptoms have been gone for 24 venessa (more content not included)... Normal [facility] CORONAVIRUS 2019, SCREEN ASY MPTOMATICon 08-22-2020 Lab Specimen Source Nasal, Nasopharyngeal Normal [facility] Comment on above: Performed By: #### C OVSC #### [facility] [address] [place] [address] Encounters Encounter Date Encounter Type Care Provider Facility Start: 05-10-2022 End: 05-10-2022 ambulatory AYSHA DEL TORO Facility:[facility] Start: 03-07-2022 End: 03-07-[address] JASON BURROUGHS . Facility:[facility] Start: 12-16-2021 End: 12-16-2021 ambulatory AYSHA DEL TORO Facility:[facility] Start: 09-10-2021 End: 09-11-2021 ambulatory AYSHA DEL TORO Facility:[facility] Payers Date Payer Category Payer Unknown [id number] [id number] [id number] 1990 Unknown [id number] [id number] [id number] 1990 Unknown [id number] [id number] [id number] 1990 Unknown [id number] [id number] [id number] 1959 Unknown [id number] Clinical Note 08-25-2020 Note Date & Type Note Facility 08-25-2020 Note Post Operative Note: PreOp Diagnosis: Bilateral Dacryoadenitis Post-Procedure Diagnosis: Bilateral Dacryoadenitis Procedure: 1. Incisional Biopsy of Bilateral Lacrimal Glands by anterior orbitotomy approach 2. Resuspension of lacrimal glands bilateral Surgeon: Gilberto Resident/Fellow/Other Eyeglass Assembler: Youa Anesthesia: MAC Estimated Blood Loss (mL): 3cc Specimen: yes. 1. Right Lacrimal Gland 2. Left Lacrimal Gland Complications: none immediate Findings: enlarged lacrimal glands Patient Returned To/Condition: pacu / stable Operative Report Dictated: Dictation: not applicable - note contains Operative Report Operative Report: Indications: The patient presented to the clinic with bilateral upper eyelid swelling present for over a year. CT imaging revealed bilateral lacrimal gland enlargement. Bloodwork prior to surgery showed elevated antiproteinase 3 concerning for ANCA positive vasculitis. The risks, benefits, and alternatives to surgery were discussed with the patient who verbalized understanding and opted to proceed with surgical biopsy by anterior orbitotomy approach. SURGICAL PROCEDURE: The patient was taken to the operating room and laid in a supine position on the operating room table. Attended local anesthesia was obtained. The patient was prepped and draped in the usual sterile ophthalmic fashion. Attention was turned to the right upper eyelid where an eyelid crease incision was measured and marked using calipers and a skin marking pen at 10mm centrally, 9mm laterally and 8mm nasally. Greens fixation forceps were used to meticulously measure and staci a small amount of excess skin to be excised, allowing full eyelid closure and maintaining the vertical position of the brow. The area was infiltrated with local anesthetic 50:50 mixture of xylocaine and Marcaine with epinephrine and bicarbonate. A metallic shield was placed in the eye. A Luxar CO2 laser on continuous cut mode, power 8 javed-quan, was used to make an incision on the pre-determined lynn and dissect a skin-orbicularis muscle flap. The orbital septum was opened throughout its entire length. The central fat pad was noted to be prolapsed, so ir was injected with local anesthetic, clamped with a straight hemostat and excised with the CO2 laser. After careful inspection and control of hemostasis with laser, the fat pad was allowed to retract into the orbit. The orbital mass was identified in the position normally occupied by the lacrimal gland and extending posteriorly along the superior orbital rim. The mass was firm, white, and rubbery with abnormal friable vasculature. It was incised and debulked using west-cott scissors. A specimen was placed in formalin and sent for histopathologic evaluation. A second specimen was placed in balanced salt solution and sent fresh for flow cytometry evaluation to rule out lymphoma. Hemostasis was achieved with bipolar wet field cautery. Once adequate hemostasis had been achieved, a 5-0 double armed nylon suture was passed in a whip stitch technique to engage the remainder of the lacrimal gland, and resuspend it to the internal anterior orbital rim periosteum. The incision was closed with a running 6-0 prolene suture over sterile rubber bolsters. The procedure was repeated on the contralateral side. The surgical site was cleaned with gauze in a wet to dry method, the drapes were removed and antibiotic ophthalmic ointment was applied. The patient tolerated the procedure well with no immediate complications, and was discharged in good condition. They were instructed to follow up with Dr Marley in 1 week for suture removal and results of the biopsy. Signature/Cosignature/Attestation: Note Completion: Attending AttestationI performed the procedure without a resident Electronic Signatures: Sonali Macias) (Signed 25-Aug-2020 12:18) Authored: Post Operative Note, Note Completion Last Updated: 25-Aug-2020 12:18 by Sonali Macias) [facility] Clinical Note 08-25-2020 Note Date & Type Note Facility 08-25-2020 Note History & Physical R eviewed: /Lactating: Are You no Are You Currently Breastfeedingno (1) I have reviewed the History and Physical dated: 03-Aug-2020 History and Physical reviewed and relevant findings noted. Patient examined to review pertinent physical findings.: No significant changes Home Medications Reviewed: no changes noted Allergies Reviewed: no changes noted ERAS (Enhanced Recovery After Surgery): ERAS Patient: no Consent: COVID-19 Consent: COVID-19 Risk ConsentSurgeon has reviewed kelley risks related to the risk of eduardo COVID-19 and if they contract COVID-19 what the risks are. Signatures/Attestation: Note Completion: Attending Provider Inpatient Certification StatementObservation patient/other outpatient visits Electronic Signatures: Sonali Macias) (Signed 25-Aug-2020 10:56) Authored: History & Physical Reviewed, ERAS, Consent, Note Completion Last Updated: 25-Aug-2020 10:56 by Sonali Macias) References: 1. Data Referenced From Patient Profile - Preop v2 25-Aug-2020 09:23 [facility] Summary Purpose Family History No Family History Records FoundNo Family History Records FoundNo Family History Records FoundNo Family History Records Found Advance Directives No Advanced Directives Records FoundNo Advanced Directives Records FoundNo Advanced Directives Records FoundNo Advanced Directives Records Found Additional Source Comments INFORMATION SOURCE (unrecogn ized section and content) DATE CREATED AUTHOR 08/28/2020 [facility] DATE CREATED AUTHOR AUTHOR'S ORGANIZ ATION 08/29/2020 [facility] DATE CREATED AUTHOR AUTHOR'S ORGANIZ ATION 06/14/2021 [facility] DATE CREATED AUTHOR AUTHOR'S ORGANIZ ATION 06/02/2022 [facility] FOR RECORDS PERTAINING TO PATIENTS WHO ARE OR HAVE BEEN ENROLLED IN A CHEMICAL DEPENDENCY/SUBSTANCEABUSE PROGRAM, SOME INFORMATION MAY BE OMITTED. This clinical summary was aggregated from multiple sources. Caution should be exercised in using it in the provision of clinical care. This summary normalizes information from multiple sources, and as a consequence, information in this document may materially change the coding, format and clinical context of patient data. In addition, data may be omitted in some cases. CLINICAL DECISIONS SHOULD BE BASED ON THE PRIMARY CLINICAL RECORDS. [facility] provides no warranty or guarantee of the accuracy or completeness of information in this document.
[2023-11-01 12:34] LABS: Estimated Average Glucose 166 mg/dL; Glycohemoglobin A1C 7.4 % (4.5-6.2)
[2023-11-01 12:50] LABS: Alanine Aminotransferase 38 U/L (14-59); Albumin Globulin Ratio 0.9; Albumin Level 3.2 g/dL (3.4-5.0); Alkaline Phosphatase 108 U/L (46-116); Anion Gap 13.1; Aspartate Amino Transferase 23 U/L (15-37); BUN Creatinine Ratio 7.8; Bilirubin Total 0.5 mg/dL (0.2-1.0); Carbon Dioxide 27.5 mmol/L (21.0-32.0); Chloride 103 mmol/L (98-107); Estimated GFR (African America >60 (>=60); Estimated GFR (Non-African Ame >60 (>=60); Globulin 3.5 g/dL; Glucose 167 mg/dL (74-106); Potassium 3.6 mmol/L (3.5-5.1); Sodium 140 mmol/L (136-145); Total Protein 6.7 g/dL (6.4-8.2)
== END 2023-11-01 11:40 | disposition home or self-care (01) ==
LOC: MAMMO 11:39
PROVIDERS: PCP Nurse Practitioner Family; Visit Provider Nurse Practitioner Family
DX: R73.9 Hyperglycemia, unspecified (principal); Z12.31 Encounter for screening mammogram for malignant neoplasm of breast
CPT/HCPCS: 36415; 77063; 77067; 80053; 83036

== ENCOUNTER 2023-11-21 09:07 | Outpatient (OUT) | payer OTHER, SELFPAY ==
--- NOTE | 2023-11-21 09:43 | RT_ITS ---
[facility] Test Date: 2023-11-21 Pat Name: RASHIDA ROBLES Department: Room: - Gender: Female Family [employer] Consumer Education Teacher: Julian Juan RRT : 1990 Requested By: Louis Pemberton Order Number: [id number] Reading MD: Louis ePmberton Interpretive Statements Pulmonary function testing was completed according to ATS criteria. Findings were considered accurate and reproducible. Both pre- and post-bronchodilator values utilized for spirometry, though the patient took her albuterol inhaler 1 hour prior to testing which may have adversely affected the spirometry results. Spirometry (based on pre-bronchodilator values): -FEV1/FVC: Normal @ 81% -FEV1: Normal @ 93% -FVC: Normal @ 96% -There is no significant bronchodilator response. Lung volumes by plethysmography (based on pre-bronchodilator values): -RV: Reduced @ 76% -TLC: Normal @ 94% Diffusion capacity: -DLCO: Normal @ 96% when corrected for Hb 12.4g/dL Impressions: -Normal spirometry. A reduced RV with normal TLC and diffusion capacity suggests an obesity pattern based on stated BMI of 46.5. The diffusion capacity is normal. Unclear how much of the patient's use of albuterol 1 hour prior to testing affected the results. If asthma remains in the differential, may consider methacholine challenge testing. Clinical correlation required. Electronically Signed On 11-21-2023 17:52:39 EDT by Louis Pemberton
[2023-11-21] MEDS: ALBUTEROL SULFATE 2.5 MG/3 ML VIAL NEB IH (09:50)
== END 2023-11-21 09:08 | disposition home or self-care (01) ==
LOC: CARD 09:07
PROVIDERS: PCP Nurse Practitioner Family; Visit Provider Internal Medicine
DX: J45.50 Severe persistent asthma, uncomplicated (principal)
CPT/HCPCS: 94060; 94726; 94729

== ENCOUNTER 2024-01-17 21:03 | Outpatient (OUT) | payer OTHER, SELFPAY ==
--- OUTSIDE RECORDS SUMMARY | 2024-01-17 21:05 | XMS_ITS | CCD ---
Author Organization [facility] Care Team Providers Care Control Chemist Name Role Phone AYSHA DEL TORO Admitting Unavailable AYSHA DEL TORO Attending Unavailable SANFORDHAMILTON, SCENERY BUILDER SHAUNA Primary Care Unavailable AYSHA DEL TORO Consulting Unavailable AYSHA DEL TORO Admitting Unavailable AYSHA DEL TORO Attending Unavailable [facility] SCENERY BUILDER SHAUNA Primary Care Unavailable AYSHA DEL TORO Consulting Unavailable HEIKE ., DR GOMEZ Admitting Unavailable HOJeanette ., DR GOMEZ Attending Unavailable SANFORDHAMILTON, SCENERY BUILDER SHAUNA Primary Care Unavailable HEIKE ., DR GOMEZ Consulting Unavailable ALVERTO, AYSHA Primary Care Unavailable GEORGE RODRIGUEZ Admitting Unavailable GEORGE RODRIGUEZ Attending Unavailable TANESHA, DR CAMILA Child Consulting Unavailable GEORGE RODRIGUEZ Consulting Unavailable Allergies Allergy Classification Reported Allergen(s) Allergy Type Date of Onset Reaction(s) Facility (1 source) Penicillins Drug allergy (disorder) 08-30-2016 [facility] Repository Problems Active Problems Problem Classification Problem Date Documented Date Episodic/Chronic Asthma (1 source) Unspecified asthma, uncomplicated; Translations: [UNSPECIFIED ASTHMA UNCOMPLICATED] Onset: 05-12-2022 Chronic Osteoarthritis (4 sources) Unspecified osteoarthritis, unspecified site; Translations: [UNSPECIFIED OSTEOARTHRITIS UNS SITE] Onset: 09-10-2021 Chronic Other aftercare (1 source) Other jail (current) drug therapy; Translations: [OTH CUSTODIAL CURRENT DRUG THERAPY] Onset: 05-12-2022 Episodic Other [...] CK [Catalytic activity/Vol] 48 U/L Normal 26-192 [facility] Comment on above: Performed By: #### D DIM #### [facility] [address] [address] [address] Esthela Ott CK.MB [Mass/Vol] 2.77 ng/mL Normal <=3.[address] [facility] Comment on above: Performed By: #### D DIM #### [facility] [address] [place] [address] Dr. Esthela Ott HSTROP <4.0 Normal 4.0-51.3 [facility] Comment on above: Result Comment: CUT- OFF POINTS HAVE BEEN ESTABLISHED BASED ON THE FOURTH UNIVERSAL DEFINITIONS OF MYOCARDIAL INFARCTION. THE UPPER REFERENCE LIMIT (URL) OF TROPONIN, DEFINED THE 99TH PERCENTILE OF cTnI DISTRIBUTION IN A REFERENCE POPULATION, HAS BEEN CONFIRMED THE DECISION THRESHOLD FOR NM DIAGNOSIS. Performed By: #### D DIM #### [facility] [address] [place] [address] Dr. Esthela Ott JOSE 37 ng/mL Normal 9-82 [facility] Comment on above: Performed By: #### D DIM #### [facility] [address] [address] [address] Esthela Ott CBC AUTO DIFFon 05-10-2022 BASO # 0.0 103/ul Normal 0.0-0.1 [facility] Comment on above: Performed By: #### C BC #### [facility] [address] [place] [address] Dr. Esthela Ott Basophils/100 WBC (Bld) 0.4 % Normal 0.2-2.0 [facility] Comment on above: Performed By: #### C BC #### [facility] [address] [place] [address] Dr. Esthela Ott EO # 0.5 103/ul Normal 0.0-0.7 [facility] Comment on above: Performed By: #### C BC #### [facility] [address] [place] [address] Dr. Esthela Ott Eosinophils/100 WBC (Bld) 5.7 % Normal 0.9-7.0 [facility] Comment on above: Performed By: #### C BC #### [facility] [address] [place] [address] Dr. Esthela Ott Erythrocyte distribution width (RBC) [Ratio] 14.2 % Normal 11.0-15.0 [facility] Comment on above: Performed By: #### C BC #### [facility] [address] [place] [address] Dr. Esthela Ott Hematocrit (Bld) [Volume fraction] 38.4 % Normal 36.0-48.0 [facility] Comment on above: Performed By: #### C BC #### [facility] [address] [place] [address] Dr. Esthela Ott Hemoglobin (Bld) [Mass/Vol] 12.8 g/dL Normal 12.0-16.0 [facility] Comment on above: Performed By: #### C BC #### [facility] [address] [place] [address] Dr. Esthela Ott IG # 0.03 10e3/ul Normal 0.00-0.03 [facility] Comment on above: Performed By: #### C BC #### [facility] [address] [place] [address] Dr. Esthela Ott IG % 0.3 % Normal 0.0-0.5 [facility] Comment on above: Performed By: #### C BC #### [facility] [address] [place] [address] Dr. Esthela Ott LYMPH # 1.9 103/ul Normal 1.2-3.8 [facility] Comment on above: Performed By: #### C BC #### [facility] [address] [place] [address] Dr. Esthela Ott Lymphocytes/100 WBC (Bld) 20.1 % Critically low 20.5-60.0 [facility] Comment on above: Performed By: #### C BC #### [facility] [address] [place] [address] Dr. Esthela Ott MANUAL DIFF REQ NO Normal [facility] Comment on above: Performed By: #### C BC #### [facility] [address] [place] [address] Dr. Esthela Ott MCH (RBC) [Entitic mass] 28.3 pg Normal 26.7-34.0 [facility] Comment on above: Performed By: #### C BC #### [facility] [address] [place] [address] Dr. Esthela Ott MCHC (RBC) [Mass/Vol] 33.3 g/dL Normal 29.9-35.2 [facility] Comment on above: Performed By: #### C BC #### [facility] [address] [place] [address] Dr. Esthela Ott MCV (RBC) [Entitic vol] 84.8 fL Normal 81.0-99.0 [facility] Comment on above: Performed By: #### C BC #### [facility] [address] [place] [address] Dr. Esthela Ott MONO # 0.6 103/ul Normal 0.3-0.8 [facility] Comment on above: Performed By: #### C BC #### [facility] [address] [place] [address] Dr. Esthela Ott Monocytes/100 WBC (Bld) 5.8 % Normal 1.7-12.0 [facility] Comment on above: Performed By: #### C BC #### [facility] [address] [place] [address] Dr. Esthela Ott NEUT # 6.5 103/ul Normal 1.4-6.5 [facility] Comment on above: Performed By: #### C BC #### [facility] [address] [place] [address] Dr. Esthela Ott Neutrophils/100 WBC (Bld) 67.7 % Normal 43.0-75.0 [facility] Comment on above: Performed By: #### C BC #### [facility] [address] [place] [address] Dr. Esthela Ott Platelet mean volume (Bld) [Entitic vol] 10.5 fL Normal 9.5-13.5 [facility] Comment on above: Performed By: #### C BC #### [facility] [address] [place] [address] Dr. Esthela Ott PLT 251 103/ul Normal 150-450 [facility] Comment on above: Performed By: #### C BC #### [facility] [address] [place] [address] Dr. Esthela Ott RBC 4.53 106/ul Normal 4.20-5.40 [facility] Comment on above: Performed By: #### C BC #### [facility] [address] [place] [address] Dr. Esthela Ott WBC 9.5 103/ul Normal 4.0-11.0 [facility] Comment on above: Performed By: #### C BC #### [facility] [address] [place] [address] Dr. Esthela Ott D-DIMERon 05-10-2022 D-DIMER 0.29 mg/L FEU Normal <=0.59 [facility] Comment on above: Performed By: #### D DIM #### [facility] [address] [place] [address] Dr. Esthela Ott D-DIMER COMMENTS SEE BELOW Normal [facility] Comment on above: Result Comment: Incr [...] hospitalization. Performed By: #### D DIM #### [facility] [address] [place] [address] Dr. Esthela Ott ER URINE PROFILEon 3 Bilirubin Ql (U) Negative Normal NEGATIVE [facility] Comment on above: Performed By: #### E RUR #### [facility] [address] [place] [address] Dr. Esthela Ott Clarity (U) CLEAR Normal CLEAR [facility] Comment on above: Performed By: #### E RUR #### [facility] [address] [place] [address] Dr. Esthela Ott Color (U) LT. YELLOW Normal YELLOW [facility] Comment on above: Performed By: #### E RUR #### [facility] [address] [place] [address] Dr. Esthela RUANO A micrscopic examina tion will be performed if indicated. Normal [facility] Comment on above: Performed By: #### E RUR #### [facility] [address] [place] [address] Dr. Esthela Ott Glucose Ql (U) Negative Normal NEGATIVE [facility] Comment on above: Performed By: #### E RUR #### [facility] [address] [place] [address] Dr. Esthela Ott Hemoglobin Ql (U) Negative Normal NEGATIVE [facility] Comment on above: Performed By: #### E RUR #### [facility] [address] [place] [address] Dr. Esthela Ott Ketones Ql (U) Negative Normal NEGATIVE [facility] Comment on above: Performed By: #### E RUR #### [facility] [address] [place] [address] Dr. Esthela Ott LEUKOCYTES Negative Normal NEGATIVE [facility] Comment on above: Performed By: #### E RUR #### [facility] [address] [place] [address] Dr. Esthela Ott Nitrite Ql (U) Negative Normal NEGATIVE [facility] Comment on above: Performed By: #### E RUR #### [facility] [address] [place] [address] Dr. Esthela Ott pH (U) 6.0 [pH] Normal 5-9 [facility] Comment on above: Performed By: #### E RUR #### [facility] [address] [place] [address] Dr. Esthela Ott SPEC GRAVITY 1.020 Normal 1.005-<=1.02 5 [facility] Comment on above: Performed By: #### E RUR #### [facility] [address] [place] [address] Dr. Esthela Ott UA PROTEIN Negative Normal NEGATIVE/ TRACE [facility] Comment on above: Performed By: #### E RUR #### [facility] [address] [place] [address] Dr. Esthela Ott UR MICRO IND NOT INDICATED Normal [facility] Comment on above: Performed By: #### E RUR #### [facility] [address] [place] [address] Dr. Esthela Ott Urobilinogen Qn (U) 0.2 {Mulugeta'U}/dL Normal 0.2 - 1. 0 [facility] Comment on above: Performed By: #### E RUR #### [facility] [address] [place] [address] Dr. Esthela Ott URon 05-10-2022 , QUAL Negative Normal NEGATIVE [facility] Comment on above: Performed By: #### P REGU #### [facility] [address] [place] [address] Dr. Esthela Ott PROF 14(COMP METB)on 023 Albumin [Mass/Vol] 3.2 g/dL Critically low 3.4-5.0 [place] Comment on above: Performed By: #### C ALTA CMP #### [facility] [address] [place] [address] Dr. Esthela Ott Albumin/Globulin [Mass ratio] 0.8 {ratio} Normal [facility] Comment on above: Performed By: #### C ALTA, CMP #### [facility] [address] [place] [address] Dr. Esthela Ott ALP [Catalytic activity/Vol] 99 U/L Normal 46-116 [facility] Comment on above: Performed By: #### C ALTA, CMP #### [facility] [address] [address] [address] Esthela Ott ALT [Catalytic activity/Vol] 25 U/L Normal 14-59 [facility] Comment on above: Performed By: #### C ALTA, CMP #### [facility] [address] [address] [address] Esthela Ott Anion gap [Moles/Vol] 13.0 mmol/L Normal [facility] Comment on above: Performed By: #### C ALTA, CMP #### [facility] [address] [place] [address] Dr. Esthela Ott AST [Catalytic activity/Vol] 19 U/L Normal 15-37 [facility] Comment on above: Performed By: #### C ALTA, CMP #### [facility] [address] [place] [address] Dr. Esthela Ott Bilirubin [Mass/Vol] 0.3 mg/dL Normal 0.2-1.0 [facility] Comment on above: Performed By: #### C ALTA, CMP #### [facility] [address] [place] [address] Dr. Esthela Ott Calcium [Mass/Vol] 9.0 mg/dL Normal 8.5-10.1 [facility] Comment on above: Performed By: #### Syeda HOLM, CMP #### [facility] [address] [address] [address] Esthela Ott Chloride [Moles/Vol] 103 mmol/L Normal 98-107 [facility] Comment on above: Performed By: #### C ALTA, CMP #### [facility] [address] [address] [address] Esthela Ott CO2 [Moles/Vol] 26.8 mmol/L Normal 21.0-32.0 [facility] Comment on above: Performed By: #### Syeda HOLM, CMP #### [facility] [address] [place] [address] Dr. Esthela Ott Creatinine [Mass/Vol] 0.71 mg/dL Normal 0.55-1.02 [facility] Comment on above: Performed By: #### C ALTA, CMP #### [facility] [address] [address] [address] Esthela Ott EGFR-AF QATARI >60 Normal >=60 [facility] Comment on above: Performed By: #### C ALTA, CMP #### [facility] [address] [address] [address] Esthela Ott EGFR-NON AF QATARI >60 Normal >=60 [facility] Comment on above: Performed By: #### C ALTA, CMP #### [facility] [address] [address] [address] Esthela Ott Globulin (S) [Mass/Vol] 3.8 g/dL Normal [facility] Comment on above: Performed By: #### C ALTA, CMP #### [facility] [address] [address] [address] Esthela Ott Glucose [Mass/Vol] 135 mg/dL Critically high 74-106 [facility] Comment on above: Performed By: #### C ALTA, CMP #### [facility] [address] [address] [address] Esthela Ott Potassium [Moles/Vol] 3.8 mmol/L Normal 3.5-5.1 [facility] Comment on above: Performed By: #### C ALTA, CMP #### [facility] [address] [address] [address] Esthela Ott Protein [Mass/Vol] 7.0 g/dL Normal 6.4-8.2 [facility] Comment on above: Performed By: #### C ALTA, CMP #### [facility] [address] [address] [address] Eshtela Ott Sodium [Moles/Vol] 139 mmol/L Normal 136-145 [facility] Comment on above: Performed By: #### C ALTA, CMP #### [facility] [address] [address] [address] Esthela Ott Urea nitrogen [Mass/Vol] 8.0 mg/dL Normal 7.0-18.0 [facility] Comment on above: Performed By: #### C ALTA, CMP #### [facility] [address] [address] [address] Esthela Ott Urea nitrogen/Creatinine [Mass ratio] 11.3 mg/mg Normal [facility] Comment on above: Performed By: #### C ALTA, CMP #### [facility] [address] [address] [address] Esthela Ott XR CHEST 2 Von [...] CAMILA ALMENDAREZ Date: 2022-05-10 13:50 Normal [facility] Covid-19 PCR ([facility])on 02-24 SARS-CoV-2 (COVID-19) RNA ANTHONY+probe Ql (Unsp spec) Detected Critically abnormal NOT DETECTED [facility] Comment on above: Result Comment: This test is not yet approved or cleared by the [place] FDA. When there are no FDA-approved or cleared tests available, and other criteria are met, FDA can make tests available under an emergency access mechanism called an Emergency Use Authorization (EUA). The EUA for this test is supported by the Skip Tender of Health and Human Service's (HHS's) declaration [...] used). Performed By: #### C VDTB #### [facility] [address] [place] [address] Dr. Esthela Ott INFLUENZA A AND B AGon 03-07 INFLUANEGH SEE BELOW Normal [facility] Comment on above: Result Comment: Nega tive for Flu A protein angiten. Infection due to Flu A cannot be ruled out. Flu A angiten in the sample may be below the detection limit of the test. Performed By: #### I NFLUAB #### [facility] [address] [place] [address] Dr. Esthela Ott INFLUBNEGH SEE BELOW Normal [facility] Comment on above: Result Comment: Nega tive for Flu B protein antigen. Infection due to Flu B cannot be ruled out. Flu B antigen in the sample may be below the detection limit of the test. Performed By: #### I NFLUAB #### [facility] [address] [place] [address] Dr. Esthela Ott INFLUENZA A AG Negative Normal NEGATIVE SEE COMMENT [facility] Comment on above: Performed By: #### I NFLUAB #### [facility] [address] [place] [address] Dr. Esthela Ott INFLUENZA B AG Negative Normal NEGATIVE SEE COMMENT [facility] Comment on above: Performed By: #### I NFLUAB #### [facility] [address] [place] [address] Dr. Esthela Ott INTERNAL CONTROLS Within Normal Limits Normal Wi thin Normal Limits [facility] Comment on above: Performed By: #### I NFLUAB #### [facility] [address] [place] [address] Dr. Esthela Ott SYMPTOMATIC COVID-19 ANTIGEN on 03-07-2022 EUA Statement SEE BELOW Normal [facility] Comment on above: Result Comment: This test [...] sooner. Performed By: #### D DIM #### [facility] [address] [address] [address] Esthela Ott SARS-CoV-2 (COVID-19) RNA ANTHONY+probe Ql (Unsp spec) Negative Normal NEGATIVE [facility] Comment on above: Performed By: #### D DIM #### [facility] [address] [address] [address] Esthela Ott Covid-19 PCR ([facility])on 11-26 SARS-CoV-2 (COVID-19) RNA ANTHONY+probe Ql (Unsp spec) Not detected Normal NOT DETECTED [facility] Comment on above: Result Comment: This test is not yet approved or cleared by the [place] FDA. When there are no FDA-approved or cleared tests available, and other criteria are met, FDA can make tests available under an emergency access mechanism called an Emergency Use Authorization (EUA). The EUA for this test is supported by the Skip Tender of Health and Human Service's (HHS's) declaration [...] SARS-CoV-2. Performed By: #### D DIM #### [facility] [address] [place] [address] Dr. Esthela Ott WILLIAM by IFAon 09-11-2021 Antinuclear Antibodies, IFA Negative Normal [facility] Comment on above: Result Comment: Nega tive <1:80 Borderline 1:80 Positive >1:80 ICAP nomenclature: AC-0 For more information about Hep-2 cell patterns use ANApatterns.org, the official website for the International Consensus on Antinuclear Antibody (WILLIAM) Patterns (ICAP). Performed By: #### D DIM #### [facility] [address] [place] [address] Dr. Esthela Ott ANTISTREPTOLYSIN O AB (ASO)o n 09-11-2021 Antistreptolysin O Ab <20.0 Normal 0.0-200.0 [facility] Comment on above: Performed By: #### D DIM #### [facility] [address] [place] [address] Dr. Esthela Ott RHEUMATOID FACTORon 09-12-19 22 RA Latex Turbid. 15.2 IU/mL Critically high <14.0 [facility] Comment on above: Performed By: #### R F #### [facility] [address] [place] [address] Dr. Esthela Ott CRPon 09-10-2021 CRP 3.4 mg/dL Critically high <=1.0 [facility] Comment on above: Performed By: #### C RP, URIC #### [facility] [address] [place] [address] Dr. Esthela Ott URIC ACID SERUMon 09-10-2021 Urate [Mass/Vol] 5.2 mg/dL Normal 2.6-6.0 [facility] Comment on above: Performed By: #### C RP, URIC #### [facility] [address] [place] [address] Dr. Esthela Ott COVID-19 Antigenon 2 COVID-19 [...] its performance Kristyn Disclaimer characteristic determined by [employer] and Kristyn Disclaimer validated at [facility]. This Kristyn Disclaimer test has not been [...] is terminated or revoked sooner. PERFORMED BY: [place] [address] PATHOLOGIST ACCOUNTS PAYABLE ASSOCIATE LUIGI HERRERA M.D. Normal [facility] Comment on above: Performed By: #### S BREA COVID-19 KRISTYN #### [address] Kristyn Ag Negativeon 04-07-19 22 Kristyn Ag Negative Negative Normal Negative [facility] Comment on above: Result Comment: This is a duplicate Kristyn SARS Antigen (FABIOLA) result to be used for statistical tracking purpose only. PERFORMED BY: [place] [address] PATHOLOGIST ACCOUNTS PAYABLE ASSOCIATE LUIGI HERRERA M.D. Performed By: #### S BREA COVID-19 KRISTYN #### [facility] [address] [place], [place] [id number] [facility] SURF MARKERS >15,PATH REVon 08-28-2020 PATH REV. 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 Performed By: #### P [id number] #### [facility] [id number] [place] [address] SURFACE MARKERS LYMPHOMA NARANJO Autumn 08-28-2020 DIAGNOSIS SEE BELOW Normal [facility] Comment on above: Order Comment: [id number] B: Right lacrimal biopsyDX: Dacryoadenitis; rule out lymphoma Result Comment: No c lonal B cell or abnormal T cell population identified. Performed By: #### L YPAN ####[id number], [place] Lymphocytes/100 WBC (Bld) 2 % Normal [facility] Comment on above: Order Comment: [id number] B: Right lacrimal biopsyDX: Dacryoadenitis; rule out lymphoma Result Comment: Over 90% of the cells are T cells. CD4:CD8 of about 5:3. Performed By: #### L YPAN ####[id number] [place] [address] NOTE SEE BELOW Normal [facility] Comment on above: Order Comment: [id number] B: Right lacrimal biopsyDX: Dacryoadenitis; rule out lymphoma Result Comment: Clifton harris with separate surgical pathology report. 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 Performed By: #### P [id number] #### [facility] [address] 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 Performed By: #### L CPAN #### [facility] [address] 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 Performed By: #### L CPAN #### [facility] [address] [place] [address] SURFACE MARKERS LYMPHOMA NARANJO Autumn 08-27-2020 CELL COUNT 2.2 x10E9/L Normal [facility] Comment on above: Order Comment: [id number] B: Right lacrimal biopsyDX: Dacryoadenitis; rule out lymphoma Performed By: #### L YPAN ####[id number] [place] [address] METHOD SEE BELOW Normal [facility] Comment on above: Order Comment: [id number] B: Right lacrimal biopsyDX: Dacryoadenitis; rule out lymphoma Result Comment: This test is a multicolor, whole blood lysis assay. It was developed and its performance characteristics determined by the Department of Pathology, [facility], and has not been cleared or approved [...] CD23, CD20, CD19, CD11c, CD180, CD1c, CD79b, [place], Lambda, CD38, CD10. Additional Antibodies: TCRB1, TCR gamma/delta Performed By: #### L YPAN ####[id number] [place] [address] NUMBER OF CELLS COLLECTED 17,000-59,000 Normal [facility] Comment on above: Order Comment: [id number] B: Right lacrimal biopsyDX: Dacryoadenitis; rule out lymphoma Performed By: #### L YPAN ####[id number] [id number] SPECIMEN SITE Right lacrimal Biopsy Normal [facility] Comment on above: Order Comment: 9463 B: Right lacrimal biopsyDX: Dacryoadenitis; rule out lymphoma Performed By: #### L YPAN ####[id number] [id number] SPECIMEN VIABILITY Acceptable Normal [facility] Comment on above: Order Comment: 9463 B: Right lacrimal biopsyDX: Dacryoadenitis; rule out lymphoma Performed By: #### L YPAN ####[id number] [id number] FLOW CYTOMETRY TESTon 2020 FLOW TEST ORDERED LYMPHOMA CUTDOWN PANEL Normal [facility] Comment on above: Order Comment: 9463 A: Left lacrimal biopsy DX: Dacryoadenitis; 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 It was developed and its performance characteristics determined by the Department of Pathology, [facility], and has not been cleared or approved [...] Performed By: #### L CPAN #### [facility] [id number] 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 [address] GLUCOSE-POCTon 08-25-2020 Glucose [Mass/Vol] 137 mg/dL High 74 - 99 [facility] Comment on above: Result Comment: This assay has not been validated for use with critically ill patients. Clinical correlation or lab draw is recommended. Performed By: #### G WISAM #### [facility] [address] [facility] [place] [address] HCG,URINEon 08-25-2020 Beta HCG ( test) Ql (U) Negative Normal Negative [facility] Comment on above: Result Comment: POCT Performed By: #### H CGU #### [facility] [address] [place] [address] Patient Profile - Preop v2on 08-25-2020 Patient Profile - Preop v2 Profile: Initial Info: How to be Addressedjessica Spoken Language PreferredEnglish Are you currently using the Personal Electronic Health Record or [facility] Are you interested in learning more about [facility] for the management of your healthdeclined Stated [...] material; individual instruction Cultural Considerationsnone Developmental Considerationsnone Baptism Considerationsnone Other learner availableno [place] RiskPatient location auto qualifies him/her for HIGH RISK. Are there any cultural, spiritual, adventism practices/values/needs that are important for us to [...] Last Updated: 25-Aug-2020 09:30 by Luli Lira) [facility] Preop Checkliston 08-25-2020 Preop Checklist Preop Checklist: Preop Checklist: Arrival [id number] Procedure Typebilateral eyelid surgery NPO [id number] SCD's Appliednot applicable Valuables Securedunder cart Cardiovascular Assessment: Extremitieswarm Respiratory Assessment: Respirationsunlabored Neurological Assessment: Level of Consciousnessalert Able to Express Selfyes Age Appropriateyes Emotional Statuscalm Preop Education: Surgical Site Infection Preventionyes Pain Scales and Managementyes Language / Communication: Language / CommunicationEnglish Electronic Signatures: Luli Lira) (Signed 25-Aug-2020 09:32) Authored: Preop Checklist Last Updated: 25-Aug-2020 09:32 by Luli Lira (PILO) Normal [facility] Surgical Pathology Depar olganton 08-25-2020 [facility] Surgical Pathology Department Name RASHIDA ROBLES Pathologist: ROEL ROSARIO JR, MD, PhD. Date of Procedure: 08/25/2020 Date Received: 08/25/2020 Date Reported 08/28/2020 Submitting Physician: SONALI MACIAS MD Location: [facility] Other External # FINAL DIAGNOSIS A [...] vasculitis are not seen. Clinical correlation recommended. home care consultant: Dr. Naomi Dunn (Eye pathologist, [facility]) IMMUNOHISTOCHEMISTRY AND IN SITU HYBRIDIZATION (SARITA): Stains performed on block A1 reveal: CD20 AND CD3: Lymphocytic infiltrate is composed of an admixture of B and T cells respectively. CD138: Highlights plasma cells [place] AND Lambda SARITA: Plasma cell population appears [...] this case. Clinical History: Physician Contact Number: [id number] Fixative (A): Formalin Fixative (B): Formalin Clinical [...] specimen is entirely submitted in one cassette. [facility]/08/25/2020 The assays/tests were performed with appropriate positive [...] the Department of Pathology Immunohistochemistry Labs at [facility]. The FDA does not require this [...] positive and negative controls which stained appropriately. [facility] Department of Pathology [address] [place] [address] Normal [facility] Comment on above: Performed By: #### [facility] #### [facility] Surgical Pathology Department [address] [place] [address] CORONAVIRUS 2019, SCREEN ASY MPTOMATICon 08-23-2020 SARS-CoV-2 (COVID-19) RNA ANTHONY+probe Ql (Unsp spec) Not detected Normal Not Detected [facility] Comment on above: Result Comment: [...] this test method. Fact sheet for providers: https://www.fda.gov/media/345462/download Fact sheet for patients: https://www.fda.gov/media/405444/download This test has received FDA Emergency Use Authorization [EUA] and has been verified by [facility] ([facility]). This test is only authorized for the duration of time that circumstances exist to justify the authorization of the emergency use of in vitro diagnostic tests for the detection of SARS-CoV-2 virus and/or diagnosis of COVID-19 infection under section 564(b)(1) of the Act, 21 U.S.C. 360bbb-3(b)(1), unless the authorization is terminated or revoked sooner. [facility] is certified under CLIA-88 as qualified to perform high complexity testing. Testing is performed in the [facility] laboratories located at [address] [place] [address]. Performed By: #### C OVSC #### [address] [place] [address] Covid 19 Resultson 1 SARS-CoV-2 (COVID-19) RNA [...] may also be contacted by the [facility] to see if any of [...] or Naproxen (Aleve) can also be used. Vsnw-bwi-vwsmqkj cough and cold medicines can be used according to the instructions on the package. Some ywlc-dsm-mazejlz medicines also contain acetaminophen. Make sure you [...] water are not available, use alcohol-based hand inspector elevators. Avoid touching your eyes, nose, and mouth [...] 24 venessa (more content not included)... Normal [facility] CORONAVIRUS 2019, SCREEN ASY MPTOMATICon 08-22-2020 Lab Specimen Source Nasal, Nasopharyngeal Normal [facility] Comment on above: Performed By: #### C OVSC #### [facility] [address] [place] [address] Encounters Encounter Date Encounter Type Care Provider Facility Start: 05-10-2022 End: 05-10-2022 ambulatory AYSHA DEL TORO Facility:[facility] Start: 03-07-2022 End: 03-07-[address] JASON BURROUGHS . Facility:[facility] Start: 12-16-2021 End: 12-16-2021 ambulatory AYSHA DEL TORO Facility:[facility] Start: 09-10-2021 End: 09-11-2021 ambulatory AYSHA DEL TORO Facility:[facility] Payers Date Payer Category Payer Unknown [id number] 2.16.84 [id number] 1990 Unknown [id number] 2.16.84 [id number] 1990 Unknown [id number] 2.16.84 [id number] 1990 Unknown [id number] 2.16.84 [id number] 1959 Unknown [id number] Clinical Note 08-25-2020 Note Date & Type Note Facility 08-25-2020 Note Post Operative Note: PreOp Diagnosis: Bilateral Dacryoadenitis Post-Procedure Diagnosis: Bilateral Dacryoadenitis Procedure: 1. Incisional Biopsy of Bilateral Lacrimal Glands by anterior orbitotomy approach 2. Resuspension of lacrimal glands bilateral Surgeon: Gilberto Resident/Fellow/Other Postdoctoral Scientist: Youa Anesthesia: MAC Estimated Blood Loss (mL): [...] Last Updated: 25-Aug-2020 12:18 by Sonali Macias) [facility] Clinical Note 08-25-2020 Note Date & Type [...] Patient Profile - Preop v2 25-Aug-2020 09:23 [facility] Summary Purpose Family History No Family History Records FoundNo Family History Records FoundNo Family History Records FoundNo Family History Records Found Advance Directives No Advanced Directives Records FoundNo Advanced Directives Records FoundNo Advanced Directives Records FoundNo Advanced Directives Records Found Additional Source Comments INFORMATION SOURCE (unrecogn ized section and content) DATE CREATED AUTHOR 08/28/2020 [facility] DATE CREATED AUTHOR AUTHOR'S ORGANIZ ATION 08/29/2020 [facility] DATE CREATED AUTHOR AUTHOR'S ORGANIZ ATION 06/14/2021 [facility] DATE CREATED AUTHOR AUTHOR'S ORGANIZ ATION 06/02/2022 [facility] FOR RECORDS PERTAINING TO PATIENTS WHO ARE [...] BE BASED ON THE PRIMARY CLINICAL RECORDS. [facility]. provides no warranty or guarantee of the accuracy or completeness of information in this document.
== END 2024-01-17 21:04 | disposition home or self-care (01) ==
LOC: SLEEP 21:03
PROVIDERS: PCP Nurse Practitioner Family; Visit Provider Nurse Practitioner Family
DX: G47.33 Obstructive sleep apnea (adult) (pediatric) (principal)
CPT/HCPCS: 95810

== ENCOUNTER 2024-02-19 20:03 | Outpatient (OUT) | payer OTHER, SELFPAY ==
--- OUTSIDE RECORDS SUMMARY | 2024-02-19 20:05 | XMS_ITS | CCD ---
Author Organization [facility] Care Team Providers Care Yarn Winder Name Role Phone AYSHA DEL TORO Admitting Unavailable AYSHA DEL TORO Attending Unavailable TIMO, KRISTIN SHAUNA Primary Care Unavailable AYSHA DEL TORO Consulting Unavailable AYSHA DEL TORO Admitting Unavailable AYSHA DEL TORO Attending Unavailable AICHHOLZ, IRRIGATION SUPERVISOR SHAUNA Primary Care Unavailable AYSHA DEL TORO Consulting Unavailable HEIKE ., DR GOMEZ Admitting Unavailable HOJeanette ., DR GOMEZ Attending Unavailable [facility], IRRIGATION SUPERVISOR SHAUNA Primary Care Unavailable HEIKE ., DR GOMEZ Consulting Unavailable ALVERTO AYSHA Primary Care Unavailable GEORGE RODRIGUEZ Admitting Unavailable GEORGE RODRIGUEZ Attending Unavailable GARNER, DR CAMILA Child Consulting Unavailable GEORGE RODRIGUEZ Consulting Unavailable PCP, NOT IN SYSTEM Primary Care Unavailable GEORGINA HOLMAN Attending Unavailable Allergies Allergy Classification Reported Allergen(s) Allergy Type Date of Onset Reaction(s) Facility (2 sources) Penicillins; Translations: [PENICILLINS] Drug allergy (disorder) 08-30-2016 [facility] Repository Problems Active Problems Problem Classification Problem Date Documented Date Episodic/Chronic Asthma (1 source) Unspecified asthma, uncomplicated; Translations: [UNSPECIFIED ASTHMA UNCOMPLICATED] Onset: 05-12-2022 Chronic Nonspecific chest pain (2 sources) Chest pain, unspecified; Translations: [Chest pain] Onset: 01-20-2024 Episodic Osteoarthritis (4 sources) Unspecified osteoarthritis, unspecified site; Translations: [UNSPECIFIED OSTEOARTHRITIS UNS SITE] Onset: 09-10-2021 Chronic Other aftercare (1 source) Other fci (current) drug therapy; Translations: [OTH HALFWAY CURRENT DRUG THERAPY] Onset: 05-12-2022 Episodic Other lower respiratory disease (4 sources) Pleurodynia; Translations: [PLEURODYNIA] Onset: 05-10-2022 Episodic Paralysis (1 source) Cerebral palsy Onset: 01-20-2024 Chronic Unclassified (4 sources) COUGH, UNSPECIFIED; Translations: [COUGH, [...] Test Name Value Interpretation Reference Range Facility URN MACROSCOPIC NURon 2023 BILIRUBIN BARB Negative Normal [facility] Comment on above: Performed By: #### N UM #### [facility] ([id number]) [address] [place] [address] BLOOD/HGB BARB Negative Normal [facility] Comment on above: Performed By: #### N UM #### [facility] ([id number]) [address] [place] [address] GLUCOSE BARB Negative Normal [facility] Comment on above: Performed By: #### N UM #### [facility] ([id number]) [address] [place] [address] KETONES BARB Negative Normal [facility] Comment on above: Performed By: #### N UM #### [facility] ([id number]) [address] [place] [address] LEUKOCYTE ESTERASE BARB Small Abnormal NEG [facility] Comment on above: Performed By: #### N UM #### [facility] ([id number]) [address] [place] [address] NITRITE BARB Negative Normal [facility] Comment on above: Performed By: #### N UM #### [facility] ([id number]) [address] [place] [address] PH BARB 7.0 Normal 5.0-8.5 [facility] Comment on above: Performed By: #### N UM #### [facility] ([id number]) [address] [place] [address] PROTEIN BARB Negative Normal NEG [facility] Comment on above: Performed By: #### N UM #### [facility] ([id number]) [address] [place] [address] SPECIFIC GRAVITY BARB 1.025 Normal 1.003-1.035 [facility] Comment on above: Performed By: #### N UM #### [facility] ([id number]) [address] [place] [address] UROBILINOGEN BARB 0.2 eu/dL Normal <1.[address] [facility] Comment on above: Performed By: #### N UM #### [facility] ([id number]) [address] [place] [address] CBC AND AUTO DIFFon 26-20 24 ABSOLUTE BASOPHIL 0.0 X10E9/L Normal 0.0-0.2 [facility] Comment on above: Performed By: #### C BCA, CMP #### [facility] ([id number]) [address], [address] [place] [address] ABSOLUTE NEUTROPHIL 5.5 X10E9/L Normal 1.5-6.6 [facility] Comment on above: Performed By: #### C BCA, CMP #### [facility] ([id number]) [address], [address] [place] [address] Basophils/100 WBC (Bld) 0.5 % Normal [facility] Comment on above: Performed By: #### C BCA, CMP #### [facility] ([id number]) [address], [address] [place] [address] Eosinophils (Bld) [#/Vol] 0.6 10*3/uL High 0.0-0.4 [facility] Comment on above: Performed By: #### C KASEY, CMP #### [facility] ([id number]) [address], [address] [place] [address] Eosinophils/100 WBC (Bld) 7.0 % Normal [facility] Comment on above: Performed By: #### C KASEY, CMP #### [facility] ([id number]) [address], [address] [place] [address] Erythrocyte distribution width (RBC) [Ratio] 13.7 % Normal 11.5-15.0 [facility] Comment on above: Performed By: #### C KASEY, CMP #### [facility] ([id number]) [address] [place] [address] Hematocrit (Bld) [Volume fraction] 34.6 % Low 35-47 [facility] Comment on above: Performed By: #### C KASEY, CMP #### [facility] ([id number]) [address], [address] [place] [address] Hemoglobin (Bld) [Mass/Vol] 11.7 g/dL Normal 11.7-15.5 [facility] Comment on above: Performed By: #### C KASEY, CMP #### [facility] ([id number]) [address], [address] [place] [address] Lymphocytes (Bld) [#/Vol] 1.9 10*3/uL Normal 1.0-3.5 [facility] Comment on above: Performed By: #### C KASEY, CMP #### [facility] ([id number]) [address], [address] [place] [address] Lymphocytes/100 WBC (Bld) 22.2 % Normal [facility] Comment on above: Performed By: #### C BCA, CMP #### [facility] ([id number]) [address] [place] [address] MCH (RBC) [Entitic mass] 27.6 pg Normal 27-34 [facility] Comment on above: Performed By: #### C BCA, CMP #### [facility] ([id number]) [address], [address] [place] [address] MCHC (RBC) [Mass/Vol] 33.7 g/dL Normal 32-36 [facility] Comment on above: Performed By: #### C BCA, CMP #### [facility] ([id number]) [address] [place] [address] MCV (RBC) [Entitic vol] 82 fL Normal 80-100 [facility] Comment on above: Performed By: #### C BCA, CMP #### [facility] ([id number]) [address], [address] [place] [address] Monocytes (Bld) [#/Vol] 0.5 10*3/uL Normal 0-0.9 [facility] Comment on above: Performed By: #### C BCA, CMP #### [facility] ([id number]) [address], [address] [place] [address] Monocytes/100 WBC (Bld) 5.7 % Normal [facility] Comment on above: Performed By: #### C BCA, CMP #### [facility] ([id number]) [address], [address] [place] [address] Neutrophils/100 WBC (Bld) 64.6 % Normal [facility] Comment on above: Performed By: #### C BCA, CMP #### [facility] ([id number]) [address] [place] [address] Platelet mean volume (Bld) [Entitic vol] 8.1 fL Normal 7-12 [facility] Comment on above: Performed By: #### C BCA, CMP #### [facility] ([id number]) [address] [address] [place] [address] Platelets (Bld) [#/Vol] 280 10*3/uL Normal 150-450 [facility] Comment on above: Performed By: #### C BCA, CMP #### [facility] ([id number]) [address], [address] [place] [address] RBC COUNT 4.22 X10E12/L Normal 3.80-5.20 [facility] Comment on above: Performed By: #### C BCA, CMP #### [facility] ([id number]) [address] [address] WBC (Bld) [#/Vol] 8.5 10*3/uL Normal 4.0-11.0 [facility] Comment on above: Performed By: #### C BCA, CMP #### [facility] ([id number]) [address] [address] [place] [address] COMPREHENSIVE METABOLIC PANE Keith 01-20-2024 Albumin [Mass/Vol] 3.8 g/dL Normal 3.2-5.3 [facility] Comment on above: Performed By: #### C BCA, CMP #### [facility] ([id number]) [address] [place] [address] ALP [Catalytic activity/Vol] 94 U/L Normal 39-130 [facility] Comment on above: Performed By: #### C BCA, CMP #### [facility] ([id number]) [address], [address] [place] [address] ALT [Catalytic activity/Vol] 15 U/L Normal 0-31 [facility] Comment on above: Performed By: #### C BCA, CMP #### [facility] ([id number]) [address], [address] [place] [address] Anion gap [Moles/Vol] 8 mmol/L Normal 5-15 [facility] Comment on above: Performed By: #### C BCA, CMP #### [facility] ([id number]) [address], [address] [place] [address] AST [Catalytic activity/Vol] 13 U/L Normal 0-41 [facility] Comment on above: Performed By: #### C BCA, CMP #### [facility] ([id number]) [address] [place] [address] Bilirubin [Mass/Vol] 0.3 mg/dL Normal 0.3-1.2 [facility] Comment on above: Performed By: #### C BCA, CMP #### [facility] ([id number]) [address] [place] [address] Calcium [Mass/Vol] 8.6 mg/dL Normal 8.5-10.5 [facility] Comment on above: Performed By: #### C BCA, CMP #### [facility] ([id number]) [address], [address] [place] [address] Chloride [Moles/Vol] 102 mmol/L Normal 98-109 [facility] Comment on above: Performed By: #### C BCA, CMP #### [facility] ([id number]) [address] [place] [address] CO2 [Moles/Vol] 27 mmol/L Normal 22-32 [facility] Comment on above: Performed By: #### C BCA, CMP #### [facility] ([id number]) [address] [place] [address] Creatinine [Mass/Vol] 0.69 mg/dL Normal 0.40-1.00 [facility] Comment on above: Result Comment: METH OD TRACEABLE TO IDMS STANDARD Performed By: #### C BCA, CMP #### [facility] ([id number]) [address] [place] [address] eGFR (CKD-EPI) NON-RACE DEPENDENT >90 Normal >59 [facility] Comment on above: Result Comment: Reported eGFR is based on the CKD-EPI 2020 equation that does not use a race coefficient. Performed By: #### C BCA, CMP #### [facility] ([id number]) [address] [place] [address] Glucose [Mass/Vol] 163 mg/dL High 65-99 [facility] Comment on above: Performed By: #### C BCA, CMP #### [facility] ([id number]) [address] [address] [place] [address] Potassium [Moles/Vol] 3.3 mmol/L Low 3.5-5.0 [facility] Comment on above: Performed By: #### C BCA, CMP #### [facility] ([id number]) [address] [address] [place] [address] Protein [Mass/Vol] 6.5 g/dL Normal 6.0-8.0 [facility] Comment on above: Performed By: #### C BCA, CMP #### [facility] ([id number]) [address], [address] [place] [address] Sodium [Moles/Vol] 137 mmol/L Normal 134-146 [facility] Comment on above: Performed By: #### C BCA, CMP #### [facility] ([id number]) [address] [address] [place] [address] Urea nitrogen [Mass/Vol] 7 mg/dL Normal 5-23 [facility] Comment on above: Performed By: #### C BCA, CMP #### [facility] ([id number]) [address] [place] [address] HCG ( test) Ql (U)o n 01-20-2024 Beta HCG ( test) Ql (U) Negative Normal NEG [facility] Comment on above: Performed By: #### 2 106-3 #### [facility] ([id number]) [address] [place] [address] Troponin I.cardiac High sens itivity method [Mass/Vol]on 01-20-2024 1 HOUR TROP I, HIGH SENSITIVITY 2 ng/L Normal <16 [facility] Comment on above: Performed By: #### 8 9579-7 #### [facility] ([id number]) [address] [place] [address] TROPONIN I, HIGH SENSITIVITY <2 Normal <16 [facility] Comment on above: Performed By: #### 8 9579-7 #### [facility] ([id number]) [address] [place] [address] Urine collection deviceon ER EXTRA URINES ER EXTRA URINE ORDER IN PROCESS Normal [facility] XR CHEST 2 VWSon 01-20-2024 XR CHEST 2 VWS XR CHEST 2 VWS History: Chest pain Technique: Frontal and lateral views the chest were obtained. Comparison: None Findings: There is no evidence for active cardiovascular or pulmonary disease. The heart size is within normal limits and the lung romo are clear. Impression: Normal chest. Finalized by Camila Shirley MD on 01/20/2024 9:41 PM Normal [facility] CARDIAC STACI ADMITon 023 CK [Catalytic activity/Vol] 48 U/L Normal 26-192 [facility] Comment on above: Performed By: #### D DIM #### [facility] [address] [place] [address] [address] Esthela Ott CK.MB [Mass/Vol] 2.77 ng/mL Normal <=3.60 [facility] Comment on above: Performed By: #### D DIM #### [facility] [address] [place], [place] [address] Dr. Esthela Ott HSTROP <4.0 Normal 4.0-51.3 [facility] Comment on above: Result Comment: CUT- OFF POINTS HAVE BEEN ESTABLISHED BASED ON THE FOURTH UNIVERSAL DEFINITIONS OF MYOCARDIAL INFARCTION. THE UPPER REFERENCE LIMIT (URL) OF TROPONIN, DEFINED THE 99TH PERCENTILE OF cTnI DISTRIBUTION IN A REFERENCE POPULATION, HAS BEEN CONFIRMED THE DECISION THRESHOLD FOR [place] DIAGNOSIS. Performed By: #### D DIM #### [facility] [address] [place] [address] Dr. Esthela Ott JOSE 37 ng/mL Normal 9-82 [facility] Comment on above: Performed By: #### D DIM #### [facility] [address] [place] [address] Dr. Esthela Ott CBC AUTO DIFFon 05-10-2022 BASO # 0.0 103/ul Normal 0.0-0.1 [facility] Comment on above: Performed By: #### C BC #### [facility] [address] [place] [address] Dr. Esthela Ott Basophils/100 WBC (Bld) 0.4 % Normal 0.2-2.0 [facility] Comment on above: Performed By: #### C BC #### [facility] [address] [place] [address] Dr. Esthela Ott EO # 0.5 103/ul Normal 0.0-0.7 [facility] Comment on above: Performed By: #### C BC #### [facility] [address] [place] [address] Dr. Esthela Ott Eosinophils/100 WBC (Bld) 5.7 % Normal 0.9-7.0 [facility] Comment on above: Performed By: #### C BC #### [facility] [address] [place] [address] Dr. Esthela Ott Erythrocyte distribution width (RBC) [Ratio] 14.2 % Normal 11.0-15.0 [facility] Comment on above: Performed By: #### C BC #### [facility] [address] [place] [address] Dr. Esthela Ott Hematocrit (Bld) [Volume fraction] 38.4 % Normal 36.0-48.0 [facility] Comment on above: Performed By: #### C BC #### [facility] [address] [place] [address] Dr. Esthela Ott Hemoglobin (Bld) [Mass/Vol] 12.8 g/dL Normal 12.0-16.0 [facility] Comment on above: Performed By: #### C BC #### [facility] [address] [place] [address] Dr. Esthela Ott IG # 0.03 10e3/ul Normal 0.00-0.03 [facility] Comment on above: Performed By: #### C BC #### [facility] [address] [place] [address] Dr. Esthela Ott IG % 0.3 % Normal 0.0-0.5 [facility] Comment on above: Performed By: #### C BC #### [facility] [address] [place] [address] Dr. Esthela Ott LYMPH # 1.9 103/ul Normal 1.2-3.8 [facility] Comment on above: Performed By: #### C BC #### [facility] [address] [place] [address] Dr. Esthela Ott Lymphocytes/100 WBC (Bld) 20.1 % Critically low 20.5-60.0 [facility] Comment on above: Performed By: #### C BC #### [facility] [address] [place] [address] Dr. Esthela Ott MANUAL DIFF REQ NO Normal [facility] Comment on above: Performed By: #### C BC #### [facility] [address] [place] [address] Dr. Esthela Ott MCH (RBC) [Entitic mass] 28.3 pg Normal 26.7-34.0 [facility] Comment on above: Performed By: #### C BC #### [facility] [address] [place] [address] Dr. Esthela Ott MCHC (RBC) [Mass/Vol] 33.3 g/dL Normal 29.9-35.2 [facility] Comment on above: Performed By: #### C BC #### [facility] [address] [address] [address] Esthela Ott MCV (RBC) [Entitic vol] 84.8 fL Normal 81.0-99.0 [facility] Comment on above: Performed By: #### C BC #### [facility] [address] [place] [address] Dr. Esthela Ott MONO # 0.6 103/ul Normal 0.3-0.8 [facility] Comment on above: Performed By: #### C BC #### [facility] [address] [place] [address] Dr. Esthela Ott Monocytes/100 WBC (Bld) 5.8 % Normal 1.7-12.0 [facility] Comment on above: Performed By: #### C BC #### [facility] [address] [place] [address] Dr. Esthela Ott NEUT # 6.5 103/ul Normal 1.4-6.5 [facility] Comment on above: Performed By: #### C BC #### [facility] [address] [place] [address] Dr. Esthela Ott Neutrophils/100 WBC (Bld) 67.7 % Normal 43.0-75.0 [facility] Comment on above: Performed By: #### C BC #### [facility] [address] [place] [address] Dr. Esthela Ott Platelet mean volume (Bld) [Entitic vol] 10.5 fL Normal 9.5-13.5 [facility] Comment on above: Performed By: #### C BC #### [facility] [address] [place] [address] Dr. Esthela Ott PLT 251 103/ul Normal 150-450 [facility] Comment on above: Performed By: #### C BC #### [facility] [address] [place] [address] Dr. Esthela Ott RBC 4.53 106/ul Normal 4.20-5.40 [facility] Comment on above: Performed By: #### C BC #### [facility] [address] [place] [address] Dr. Esthela Ott WBC 9.5 103/ul Normal 4.0-11.0 [facility] Comment on above: Performed By: #### C BC #### [facility] [address] [place] [address] Dr. Esthela Ott D-DIMERon 05-10-2022 D-DIMER 0.29 mg/L FEU Normal <=0.59 [facility] Comment on above: Performed By: #### D DIM #### [facility] [address] [place] [address] Dr. Esthela Ott D-DIMER COMMENTS SEE BELOW Normal [facility] Comment on above: Result Comment: Incr eases [...] hospitalization. Performed By: #### D DIM #### [facility] [address] [place] [address] Dr. Esthela Ott ER URINE PROFILEon 3 Bilirubin Ql (U) Negative Normal NEGATIVE [facility] Comment on above: Performed By: #### E RUR #### [facility] [address] [place] [address] Dr. Esthela Ott Clarity (U) CLEAR Normal CLEAR [facility] Comment on above: Performed By: #### E RUR #### [facility] [address] [place] [address] Dr. Esthela Ott Color (U) LT. YELLOW Normal YELLOW [facility] Comment on above: Performed By: #### E RUR #### [facility] [address] [place] [address] Dr. Esthela Ott ERUAHD A micrscopic examina tion will be performed if indicated. Normal [facility] Comment on above: Performed By: #### E RUR #### [facility] [address] [place] [address] Dr. Esthela Ott Glucose Ql (U) Negative Normal NEGATIVE [facility] Comment on above: Performed By: #### E RUR #### [facility] [address] [place] [address] Dr. Esthela Ott Hemoglobin Ql (U) Negative Normal NEGATIVE [facility] Comment on above: Performed By: #### E RUR #### [facility] [address] [place] [address] Dr. Esthela Ott Ketones Ql (U) Negative Normal NEGATIVE [facility] Comment on above: Performed By: #### E RUR #### [facility] [address] [place] [address] Dr. Esthela Ott LEUKOCYTES Negative Normal NEGATIVE [facility] Comment on above: Performed By: #### E RUR #### [facility] [address] [place] [address] Dr. Esthela Ott Nitrite Ql (U) Negative Normal NEGATIVE [facility] Comment on above: Performed By: #### E RUR #### [facility] [address] [place] [address] Dr. Esthela Ott pH (U) 6.0 [pH] Normal 5-9 [facility] Comment on above: Performed By: #### E RUR #### [facility] [address] [place] [address] Dr. Esthela Ott SPEC GRAVITY 1.020 Normal 1.005-<=1.02 5 [facility] Comment on above: Performed By: #### E RUR #### [facility] [address] [place] [address] Dr. Esthela Ott UA PROTEIN Negative Normal NEGATIVE/ TRACE [facility] Comment on above: Performed By: #### E RUR #### [facility] [address] [place] [address] Dr. Esthela Ott UR MICRO IND NOT INDICATED Normal [facility] Comment on above: Performed By: #### E RUR #### [facility] [address] [place] [address] Dr. Esthela Ott Urobilinogen Qn (U) 0.2 {Mulugeta'U}/dL Normal 0.2 - 1. 0 [facility] Comment on above: Performed By: #### E RUR #### [facility] [address] [address] [address] Esthela Ott URon 05-10-2022 , QUAL Negative Normal NEGATIVE [facility] Comment on above: Performed By: #### P REGU #### [facility] [address] [address] [address] Esthela Ott PROF 14(COMP METB)on 023 Albumin [Mass/Vol] 3.2 g/dL Critically low 3.4-5.0 [facility] Comment on above: Performed By: #### C ALTA, CMP #### [facility] [address] [place] [address] Dr. Esthela Ott Albumin/Globulin [Mass ratio] 0.8 {ratio} Normal [facility] Comment on above: Performed By: #### C ALTA, CMP #### [facility] [address] [place] [address] Dr. Esthela Ott ALP [Catalytic activity/Vol] 99 U/L Normal 46-116 [facility] Comment on above: Performed By: #### C ALTA, CMP #### [facility] [address] [place] [address] Dr. Esthela Ott ALT [Catalytic activity/Vol] 25 U/L Normal 14-59 [facility] Comment on above: Performed By: #### C ALTA, CMP #### [facility] [address] [place] [address] Dr. Esthela Ott Anion gap [Moles/Vol] 13.0 mmol/L Normal [facility] Comment on above: Performed By: #### C ALTA, CMP #### [facility] [address] [place] [address] Dr. Esthela Ott AST [Catalytic activity/Vol] 19 U/L Normal 15-37 [facility] Comment on above: Performed By: #### C ALTA, CMP #### [facility] [address] [address] [address] Esthela Ott Bilirubin [Mass/Vol] 0.3 mg/dL Normal 0.2-1.0 [facility] Comment on above: Performed By: #### C MYESHAM, CMP #### [facility] [address] [place] [address] Dr. Esthela Ott Calcium [Mass/Vol] 9.0 mg/dL Normal 8.5-10.1 [facility] Comment on above: Performed By: #### C MYESHAM, CMP #### [facility] [address] [place] [address] Dr. Esthela Ott Chloride [Moles/Vol] 103 mmol/L Normal 98-107 [facility] Comment on above: Performed By: #### C ALTA, CMP #### [facility] [address] [place] [address] Dr. Esthela Ott CO2 [Moles/Vol] 26.8 mmol/L Normal 21.0-32.0 [facility] Comment on above: Performed By: #### C ALTA, CMP #### [facility] [address] [place] [address] Dr. Esthela Ott Creatinine [Mass/Vol] 0.71 mg/dL Normal 0.55-1.02 [facility] Comment on above: Performed By: #### C ALTA, CMP #### [facility] [address] [place] [address] Dr. Esthela Ott EGFR-AF PARAGUAYAN >60 Normal >=60 [facility] Comment on above: Performed By: #### C ALTA, CMP #### [facility] [address] [place] [address] Dr. Esthela Ott EGFR-NON AF PARAGUAYAN >60 Normal >=60 [facility] Comment on above: Performed By: #### C MYESHAM, CMP #### [facility] [address] [place] [address] Dr. Esthela Ott Globulin (S) [Mass/Vol] 3.8 g/dL Normal [facility] Comment on above: Performed By: #### C ALTA, CMP #### [facility] [address] [address] [address] Esthela Ott Glucose [Mass/Vol] 135 mg/dL Critically high 74-106 [facility] Comment on above: Performed By: #### C ALTA, CMP #### [facility] [address] [address] [address] Esthela Ott Potassium [Moles/Vol] 3.8 mmol/L Normal 3.5-5.1 [facility] Comment on above: Performed By: #### C ALTA, CMP #### [facility] [address] [address] [address] Esthela Ott Protein [Mass/Vol] 7.0 g/dL Normal 6.4-8.2 [facility] Comment on above: Performed By: #### C ALTA, CMP #### [facility] [address] [address] [address] Esthela Ott Sodium [Moles/Vol] 139 mmol/L Normal 136-145 [facility] Comment on above: Performed By: #### C ALTA, CMP #### [facility] [address] [address] [address] Esthela Ott Urea nitrogen [Mass/Vol] 8.0 mg/dL Normal 7.0-18.0 [facility] Comment on above: Performed By: #### C ALTA, CMP #### [facility] [address] [address] [address] Esthela Ott Urea nitrogen/Creatinine [Mass ratio] 11.3 mg/mg Normal [facility] Comment on above: Performed By: #### C ALTA, CMP #### [facility] [address] [address] [address] Esthela Ott XR CHEST 2 Von [...] CAMILA ALMENDAREZ Date: 2022-05-10 13:50 Normal [facility]24 SARS-CoV-2 (COVID-19) RNA ANTHONY+probe Ql (Unsp spec) Detected Critically abnormal NOT DETECTED [facility] Comment on above: Result Comment: This test is not yet approved or cleared by the [place] FDA. When there are no FDA-approved or cleared tests available, and other criteria are met, FDA can make tests available under an emergency access mechanism called an Emergency Use Authorization (EUA). The EUA for this test is supported by the [place] of Health and Human Service's (HHS's) declaration [...] longer be used). Performed By: #### C VDTBH #### [facility] [address] [place] [address] Dr. Esthela Ott INFLUENZA A AND B AGon 03-07 [facility] SEE BELOW Normal [facility] Comment on above: Result Comment: Nega tive for Flu A protein angiten. Infection due to Flu A cannot be ruled out. Flu A angiten in the sample may be below the detection limit of the test. Performed By: #### I NFLUAB #### [facility] [address] [place] [address] Dr. Esthela Ott [facility] SEE BELOW Normal [facility] Comment on above: Result Comment: Nega tive for Flu B protein antigen. Infection due to Flu B cannot be ruled out. Flu B antigen in the sample may be below the detection limit of the test. Performed By: #### I NFLUAB #### [facility] [address] [place] [address] Dr. Esthela Ott INFLUENZA A AG Negative Normal NEGATIVE SEE COMMENT [facility] Comment on above: Performed By: #### I NFLUAB #### [facility] [address] [place] [address] Dr. Esthela Ott INFLUENZA B AG Negative Normal NEGATIVE SEE COMMENT [facility] Comment on above: Performed By: #### I NFLUAB #### [facility] [address] [address] [address] Esthela Ott INTERNAL CONTROLS Within Normal Limits Normal Wi thin Normal Limits [facility] Comment on above: Performed By: #### I NFLUAB #### [facility] [address] [address] [address] Esthela Ott SYMPTOMATIC COVID-19 ANTIGEN on 03-07-2022 EUA Statement SEE BELOW Normal [facility] Comment on above: Result Comment: [...] sooner. Performed By: #### D DIM #### [facility] [address] [place] [address] Dr. Esthela Ott SARS-CoV-2 (COVID-19) RNA ANTHONY+probe Ql (Unsp spec) Negative Normal NEGATIVE [facility] Comment on above: Performed By: #### D DIM #### [facility] [address] [place] [address] Dr. Esthela Ott Covid-19 PCR ([facility]on 11-26 SARS-CoV-2 (COVID-19) RNA ANTHONY+probe Ql (Unsp spec) Not detected Normal NOT DETECTED [facility] Comment on above: Result Comment: This test is not yet approved or cleared by the [place] FDA. When there are no FDA-approved or cleared tests available, and other criteria are met, FDA can make tests available under an emergency access mechanism called an Emergency Use Authorization (EUA). The EUA for this test is supported by the Pharmacovigilance Scientist of Health and Human Service's (HHS's) declaration [...] SARS-CoV-2. Performed By: #### D DIM #### [facility] [address] [place] [address] Dr. Esthela Ott WILLIAM by IFAon 09-11-2021 Antinuclear Antibodies, IFA Negative Normal [facility] Comment on above: Result Comment: Nega tive <1:80 Borderline 1:80 Positive >1:80 ICAP nomenclature: AC-0 For more information about Hep-2 cell patterns use ANApatterns.org, the official website for the International Consensus on Antinuclear Antibody (WILLIAM) Patterns (ICAP). Performed By: #### D DIM #### [facility] [address] [place] [address] Dr. Esthela Ott ANTISTREPTOLYSIN O AB (ASO)o n 09-11-2021 Antistreptolysin O Ab <20.0 Normal 0.0-200.0 [facility] Comment on above: Performed By: #### D DIM #### [facility] [address] [place] [address] Dr. Esthela Ott RHEUMATOID FACTORon 09-12-19 RA Latex Turbid. 15.2 IU/mL Critically high <14.0 [facility] Comment on above: Performed By: #### R F #### [facility] [address] [place] [address] Dr. Esthela Ott CRPon 09-10-2021 CRP 3.4 mg/dL Critically high <=1.[address] [facility] Comment on above: Performed By: #### C RP, URIC #### [facility] [address] [address] [address] Esthela Ott URIC ACID SERUMon 09-10-2021 Urate [Mass/Vol] 5.2 mg/dL Normal 2.6-6.0 [facility] Comment on above: Performed By: #### C RP, URIC #### [facility] [address] [address] [address] Esthela Ott COVID-19 Antigenon 2 COVID-19 [...] its performance Kristyn Disclaimer characteristic determined by [employer] and Kristyn Disclaimer validated at [facility]. This Kristyn Disclaimer test has not [...] Emergency Use Authorization for Coronavirus Kristyn Disclaimer iseas during the Public Health Emergency) Kristyn Disclaimer [...] is terminated or revoked sooner. PERFORMED BY: [facility] [address] [place] [address] PATHOLOGIST [employer]BON PAPER INTERLEAFER LUIGI HERRERA M.D. [facility] Comment on above: Performed By: #### S BREA COVID-19 KRISTYN #### [facility] [address] [place] [address] [facility] Kristyn Ag Negativeon 04-07-19 22 Kristyn Ag Negative Negative Normal Negative [facility] Comment on above: Result Comment: This is a duplicate Kristyn SARS Antigen (FABIOLA) result to be used for statistical tracking purpose only. PERFORMED BY: [facility] [address] [place] [address] PATHOLOGIST [employer] PAPER INTERLEAFER LUIGI HERRERA M.D. Performed By: #### S DANNYBONNIE, COVID-19 KRISTYN #### [facility] [address] SURF MARKERS >15,PATH REVon 08-28-2020 PATH REV. 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 Performed By: #### P R194 #### [facility] [address] [place] [address] SURFACE MARKERS LYMPHOMA NARANJO Autumn 08-28-2020 DIAGNOSIS SEE BELOW Normal [facility] Comment on above: Order Comment: 9463 B: Right lacrimal biopsyDX: Dacryoadenitis; rule out lymphoma Result Comment: No c lonal B cell or abnormal T cell population identified. Performed By: #### L YPAN ####[id number] [place] [address] Lymphocytes/100 WBC (Bld) 2 % Normal [facility] Comment on above: Order Comment: 9463 B: Right lacrimal biopsyDX: Dacryoadenitis; rule out lymphoma Result Comment: Over 90% of the cells are T cells. CD4:CD8 of about 5:3. Performed By: #### L YPAN ####[id number] [place] [address] NOTE SEE BELOW Normal [facility] Comment on above: Order Comment: 9463 B: Right lacrimal biopsyDX: Dacryoadenitis; rule out lymphoma Result Comment: [place] elate with separate surgical pathology report. 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 Performed By: #### P R192 #### [facility] [address] [place] [address] SURFACE MARKERS LYMPHOMA CUT DOWN PANELon 08-27-2020 DIAGNOSIS SEE BELOW Normal [facility] Comment on above: Order Comment: 9463 A: Left lacrimal biopsy DX: Dacryoadenitis; rule out lymphoma Result Comment: No c lonal B cell or abnormal T cell population identified. Performed By: #### L CPAN #### [facility] [address] 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 Performed By: #### L CPAN #### [facility] [address] [place] [address] SURFACE MARKERS LYMPHOMA NARANJO Autumn 08-27-2020 CELL COUNT 2.2 x10E9/L Normal [facility] Comment on above: Order Comment: 9463 B: Right lacrimal biopsyDX: Dacryoadenitis; rule out lymphoma Performed By: #### L YPAN ####[id number] [place] [address] METHOD SEE BELOW Normal [facility] Comment on above: Order Comment: 9463 B: Right lacrimal biopsyDX: Dacryoadenitis; rule out lymphoma Result Comment: This test is a multicolor, whole blood lysis assay. It was developed and its performance characteristics determined by the Department of Pathology, [facility], and has not been cleared or approved [...] CD23, CD20, CD19, CD11c, CD180, CD1c, CD79b, [place], Lambda, CD38, CD10. Additional Antibodies: TCRB1, TCR gamma/delta Performed By: #### L YPAN ####[id number] [id number] NUMBER OF CELLS COLLECTED 17,000-59,000 Normal [facility] Comment on above: Order Comment: 9463 B: Right lacrimal biopsyDX: Dacryoadenitis; rule out lymphoma Performed By: #### L YPMALLORY ####[id number] [place] [address] SPECIMEN SITE Right lacrimal Biopsy Normal [facility] Comment on above: Order Comment: 9463 B: Right lacrimal biopsyDX: Dacryoadenitis; rule out lymphoma Performed By: #### L YPAN ####[id number] [place] [address] SPECIMEN VIABILITY Acceptable Normal [facility] Comment on above: Order Comment: 9463 B: Right lacrimal biopsyDX: Dacryoadenitis; rule out lymphoma Performed By: #### L YPAN ####[id number] [place] [address] FLOW CYTOMETRY TESTon 2020 FLOW TEST ORDERED LYMPHOMA CUTDOWN PANEL Normal [facility] Comment on above: Order Comment: 9463 A: Left lacrimal biopsy DX: Dacryoadenitis; rule out lymphoma Performed By: #### F CTST #### [facility] [address] [place] [address] SURFACE MARKERS LYMPHOMA CUT DOWN PANELon 08-26-2020 SPECIMEN VIABILITY Acceptable Normal [facility] Comment on above: Order Comment: 9463 A: Left lacrimal biopsy DX: Dacryoadenitis; rule out lymphoma Performed By: #### L CPAN #### [facility] [address] [place] [address] [place], [place] CELL COUNT 0.48 x10E9/L Normal [facility] Comment on above: Order Comment: 9463 A: Left lacrimal biopsy DX: Dacryoadenitis; rule out lymphoma Performed By: #### L CPAN #### [facility] [address] [place] [address] Lymphocytes/100 WBC (Bld) 2 % Normal [facility] Comment on above: Order Comment: 9463 A: Left lacrimal biopsy DX: Dacryoadenitis; rule out lymphoma Performed By: #### L CPAN #### [facility] [address] [place] [address] METHOD SEE BELOW Normal [facility] Comment on above: Order Comment: 9463 A: Left lacrimal biopsy DX: Dacryoadenitis; rule out lymphoma Result Comment: This test is a multicolor, whole blood lysis assay. It was developed and its performance characteristics determined by the Department of Pathology, [facility], and has not been cleared or approved [...] Performed By: #### L CPAN #### [facility] [address] [place] [address] NUMBER OF CELLS COLLECTED [phone] Normal [facility] Comment on above: Order Comment: 9463 A: Left lacrimal biopsy DX: Dacryoadenitis; rule out lymphoma Performed By: #### L CPAN #### [facility] [address] [place] [address] SPECIMEN SITE LEFT LACRIMAL BX Normal [facility] Comment on above: Order Comment: 9463 A: Left lacrimal biopsy DX: Dacryoadenitis; rule out lymphoma Performed By: #### L CPAN #### [facility] [address] [place] [address] FLOW CYTOMETRY TESTon 2020 SOURCE TISSUE Normal [facility] Comment on above: Order Comment: 9463 B: Right lacrimal biopsyDX: Dacryoadenitis; rule out lymphoma Performed By: #### F CTST ####[id number] [place] [address] SOURCE TISSUE Normal [facility] Comment on above: Order Comment: 9463 A: Left lacrimal biopsy DX: Dacryoadenitis; rule out lymphoma Performed By: #### F CTST #### [facility] [address] [place] [address] GLUCOSE-POCTon 08-25-2020 Glucose [Mass/Vol] 137 mg/dL High 74 - 99 [facility] Comment on above: Result Comment: This assay has not been validated for use with critically ill patients. Clinical correlation or lab draw is recommended. Performed By: #### G WISAM #### [facility] [address] [place] [address] HCG,URINEon 08-25-2020 Beta HCG ( test) Ql (U) Negative Normal Negative [facility] Comment on above: Result Comment: POCT Performed By: #### H CGU #### [facility] [address] [facility] [address] Patient Profile - Preop v2on 08-25-2020 Patient Profile - Preop v2 Profile: Initial Info: How to be Addressedjessica Spoken Language PreferredEnglish Are you currently using the Personal Electronic Health Record or MYUHCAREno Are you interested in learning more about MYCARE for the management of your healthdeclined Stated [...] material; individual instruction Cultural Considerationsnone Developmental Considerationsnone Quaker Considerationsnone Other learner availableno [place] RiskPatient location auto qualifies him/her for HIGH RISK. Are there any cultural, spiritual, alevism practices/values/needs that are important for us to [...] Last Updated: 25-Aug-2020 09:30 by Luli Lira) Normal [facility] Preop Checkliston 08-25-2020 Preop Checklist Preop Checklist: Preop Checklist: Arrival [id number] Procedure Typebilateral eyelid surgery NPO [id number] SCD's Appliednot applicable Valuables Securedunder cart Cardiovascular Assessment: Extremitieswarm Respiratory Assessment: Respirationsunlabored Neurological Assessment: Level of Consciousnessalert Able to Express Selfyes Age Appropriateyes Emotional Statuscalm Preop Education: Surgical Site Infection Preventionyes Pain Scales and Managementyes Language / Communication: Language / CommunicationEnglish Electronic Signatures: Luli Lira) (Signed 25-Aug-2020 09:32) Authored: Preop Checklist Last Updated: 25-Aug-2020 09:32 by Luli Lira) Normal [facility] Surgical Pathology Depar tmenton 08-25-2020 [facility] Surgical Pathology Department Name RASHIDA ROBLES Pathologist: ROEL ROSARIO JR, MD, PhD. Date of Procedure: 08/25/2020 Date Received: 08/25/2020 Date Reported 08/28/2020 Submitting Physician: SONALI MACIAS MD Location: [facility] Other External # FINAL DIAGNOSIS A AND [...] vasculitis are not seen. Clinical correlation recommended. retirement consultant: Dr. Naomi Dunn (Eye pathologist, [facility]) IMMUNOHISTOCHEMISTRY AND IN SITU HYBRIDIZATION (SARITA): Stains performed on block A1 reveal: CD20 AND CD3: Lymphocytic infiltrate is composed of an admixture of B and T cells respectively. CD138: Highlights plasma cells [place] AND Lambda SARITA: Plasma cell population appears [...] this case. Clinical History: Physician Contact Number: [id number] Fixative (A): Formalin Fixative (B): Formalin Clinical [...] is entirely submitted in one cassette. SBS sbs/08/25/2020 The assays/tests were performed with appropriate positive [...] the Department of Pathology Immunohistochemistry Labs at [facility]. The FDA does not require this test to go through premarket FDA review. This test is used for clinical purposes. It should not be regarded as investigational or for research. This laboratory is certified under the Clinical Laboratory Improvement Amendments (CLIA) as qualified to perform high complexity clinical laboratory testing. The assays/tests were performed with appropriate positive and negative controls which stained appropriately. [facility] Department of Pathology [id number] [place] [address] [facility] Comment on above: Performed By: #### [facility] #### [facility] Surgical Pathology Department [address] [place] [address] CORONAVIRUS 2019, SCREEN ASY MPTOMATICon 08-23-2020 SARS-CoV-2 (COVID-19) RNA ANTHONY+probe Ql (Unsp spec) Not detected Normal Not Detected [facility] Comment on above: Result Comment: [...] this test method. Fact sheet for providers: https://www.fda.gov/media/237786/download Fact sheet for patients: https://www.fda.gov/media/187989/download This test has received FDA Emergency Use Authorization [EUA] and has been verified by [facility] ([facility]). This test is only authorized for the duration of time that circumstances exist to justify the authorization of the emergency use of in vitro diagnostic tests for the detection of SARS-CoV-2 virus and/or diagnosis of COVID-19 infection under section 564(b)(1) of the Act, 21 U.S.C. 360bbb-3(b)(1), unless the authorization is terminated or revoked sooner. [facility] is certified under CLIA-88 as qualified to perform high complexity testing. Testing is performed in the [facility] laboratories located at [id number] [place] [address]. Performed By: #### C OVSC #### [facility] [id number] [place] [address]. [place] [address] Covid 19 Resultson 1 SARS-CoV-2 (COVID-19) RNA [...] You may also be contacted by the [facility] to see if [...] or Naproxen (Aleve) can also be used. Ybbd-zbe-usommjh cough and cold medicines can be used according to the instructions on the package. Some trrt-zkc-jlogtrj medicines also contain acetaminophen. Make sure you [...] water are not available, use alcohol-based hand marksmanship instructor. Avoid touching your eyes, nose, and mouth [...] 24 venessa (more content not included)... Normal [facility] CORONAVIRUS 2019, SCREEN ASY MPTOMATICon 08-22-2020 Lab Specimen Source Nasal, Nasopharyngeal Normal [facility] Comment on above: Performed By: #### C OVSC #### [facility] [address] [place] [address] Encounters Encounter Date Encounter Type Care Provider Facility Start: 01-20-2024 End: 01-21-2024 Emergency department patient visit NOT IN SYSTEM [facility] Start: 05-10-2022 End: 05-10-2022 ambulatory AYSHA DEL TORO Facility:[facility] Start: 03-07-2022 End: 03-07-[address] JASON BURROUGHS . Facility:[facility] Start: 12-16-2021 End: 12-16-2021 ambulatory AYSHA DEL TORO Facility:[facility] Start: 09-10-2021 End: 09-11-2021 ambulatory AYSHA DEL TORO Facility:[facility] Payers Date Payer Category Payer Unknown [id number] 2.16.84 [id number] 1990 Unknown [id number] 2.16.84 [id number] 1990 Unknown [id number] 2.16.84 [id number] 1990 Unknown [id number] 2.16.84 [id number] 1990 Unknown [id number] 2.16.8 [id number] 1959 Unknown [id number] Clinical Note 08-25-2020 Note Date & Type Note Facility 08-25-2020 Note Post Operative Note: PreOp Diagnosis: Bilateral Dacryoadenitis Post-Procedure Diagnosis: Bilateral Dacryoadenitis Procedure: 1. Incisional Biopsy of Bilateral Lacrimal Glands by anterior orbitotomy approach 2. Resuspension of lacrimal glands bilateral Surgeon: Gilberto Resident/Fellow/Other Hospice Nurse Practitioner: Youa Anesthesia: MAC Estimated Blood Loss (mL): [...] Completion Last Updated: 25-Aug-2020 12:18 by Sonali aMcias) [facility] Clinical Note 08-25-2020 Note Date & Type [...] Patient Profile - Preop v2 25-Aug-2020 09:23 [facility] Summary Purpose Family History No Family History Records FoundNo Family History Records FoundNo Family History Records FoundNo Family History Records FoundNo Family History Records Found Advance Directives No Advanced Directives Records FoundNo Advanced Directives Records FoundNo Advanced Directives Records FoundNo Advanced Directives Records FoundNo Advanced Directives Records Found Additional Source Comments INFORMATION SOURCE (unrecogn ized section and content) DATE CREATED AUTHOR 08/28/2020 [facility] DATE CREATED AUTHOR AUTHOR'S ORGANIZ ATION 08/29/2020 [facility] DATE CREATED AUTHOR AUTHOR'S ORGANIZ ATION 06/14/2021 [facility] DATE CREATED AUTHOR AUTHOR'S ORGANIZ ATION 06/02/2022 [facility] DATE CREATED AUTHOR AUTHOR'S ORGANIZ ATION 01/21/2024 [facility] FOR RECORDS PERTAINING TO PATIENTS WHO ARE [...] BE BASED ON THE PRIMARY CLINICAL RECORDS. [facility] [employer] [facility] provides no warranty or guarantee of the accuracy or completeness of information in this document.
== END 2024-02-19 20:04 | disposition home or self-care (01) ==
LOC: SLEEP 20:03
PROVIDERS: PCP Nurse Practitioner Family; Visit Provider Nurse Practitioner Family
DX: G47.33 Obstructive sleep apnea (adult) (pediatric) (principal)
CPT/HCPCS: 95811

== ENCOUNTER 2024-08-24 00:50 | Emergency (ER) | payer OTHER, SELFPAY ==
[2024-08-24] VITALS (15 sets, daily range): BP systolic 108; BP diastolic 72; PULSE 96–107; TEMP 37.3; O2SAT 94–99; BMI 44.6
--- OUTSIDE RECORDS SUMMARY | 2024-08-24 01:22 | XMS_ITS | CCD ---
Author Organization [facility] Care Team Providers Care Health Information Management Director Name Role Phone AYSHA DEL TORO Admitting Unavailable AYSHA DEL TORO Attending Unavailable TIMO, KRISTIN SHAUNA Primary Care Unavailable AYSHA DEL TORO Consulting Unavailable AYSHA DEL TORO Admitting Unavailable AYSHA DEL TORO Attending Unavailable AICHHOLZ, CAR BARN LABORER SHAUNA Primary Care Unavailable AYSHA DEL TORO Consulting Unavailable HEIKE ., DR GOMEZ Admitting Unavailable HOJeanette ., DR GOMEZ Attending Unavailable [facility] CAR BARN LABORER SHAUNA Primary Care Unavailable HEIKE ., DR GOMEZ Consulting Unavailable ALVERTO AYSHA Primary Care Unavailable GEORGE RODRIGUEZ Admitting Unavailable GEORGE RODRIGUEZ Attending Unavailable [place], DR CAMILA Child Consulting Unavailable GEORGE RODRIGUEZ [...] 09-10-2021 Chronic Other aftercare (1 source) Other intermediate (current) drug therapy; Translations: [OTH GROUP HOME CURRENT DRUG THERAPY] Onset: 05-12-2022 Episodic Other [...] MACROSCOPIC NURon 2023 BILIRUBIN BARB Negative Normal [facility] Comment on above: Performed By: #### N UM #### [facility] ([id number]) [address] [place] [address] BLOOD/HGB BARB Negative Normal [facility] Comment on above: Performed By: #### N UM #### [facility] ([id number]) [address] [place] [address] GLUCOSE BARB Negative Normal [facility] Comment on above: Performed By: #### N UM #### [facility] ([id number]) [address] [place] [address] KETONES BARB Negative Normal [facility] Comment on above: Performed By: #### N UM #### [facility] ([id number]) [address] [place] [address] LEUKOCYTE ESTERASE BARB Small Abnormal NEG [facility] Comment on above: Performed By: #### N UM #### [facility] ([id number]) [address] [place] [address] NITRITE BARB Negative Normal [facility] Comment on above: Performed By: #### N UM #### [facility] ([id number]) [address] [place] [address] PH BARB 7.0 Normal 5.0-8.5 [facility] Comment on above: Performed By: #### N UM #### [facility] ([id number]) [address] [place] [address] PROTEIN BARB Negative Normal NEG [facility] Comment on above: Performed By: #### N UM #### [facility] ([id number]) [address] [place] [address] SPECIFIC GRAVITY BARB 1.025 Normal 1.003-1.035 [facility] [place] Comment on above: Performed By: #### N UM #### [facility] ([id number]) [address] [place] [address] UROBILINOGEN BARB 0.2 eu/dL Normal <1.[address] [facility] Comment on above: Performed By: #### N UM #### [facility] ([id number]) [address] [place] [address] CBC AND AUTO DIFFon 26-20 24 ABSOLUTE BASOPHIL 0.0 X10E9/L Normal 0.0-0.2 [facility] Comment on above: Performed By: #### C BCA, CMP #### [facility] ([id number]) [address], [address] [place] [address] ABSOLUTE NEUTROPHIL 5.5 X10E9/L Normal 1.5-6.6 [facility] Comment on above: Performed By: #### C BCA, CMP #### [facility] ([id number]) [address], [address] [place] [address] Basophils/100 WBC (Bld) 0.5 % Normal [facility] Comment on above: Performed By: #### C BCA, CMP #### [facility] ([id number]) [address], [address] [place] [address] Eosinophils (Bld) [#/Vol] 0.6 10*3/uL High 0.0-0.4 [facility] Comment on above: Performed By: #### C KASEY, CMP #### [facility] ([id number]) [address], [address] [place] [address] Eosinophils/100 WBC (Bld) 7.0 % Normal [facility] Comment on above: Performed By: #### C KASEY, CMP #### [facility] ([id number]) [address] [place] [address] Erythrocyte distribution width (RBC) [Ratio] 13.7 % Normal 11.5-15.0 [facility] Comment on above: Performed By: #### C KASEY, CMP #### [facility] ([id number]) [address] [place] [address] Hematocrit (Bld) [Volume fraction] 34.6 % Low 35-47 [facility] Comment on above: Performed By: #### C KASEY, CMP #### [facility] ([id number]) [address] [place] [address] Hemoglobin (Bld) [Mass/Vol] 11.7 g/dL Normal 11.7-15.5 [facility] Comment on above: Performed By: #### C KASEY, CMP #### [facility] ([id number]) [address] [place] [address] Lymphocytes (Bld) [#/Vol] 1.9 10*3/uL Normal 1.0-3.5 [facility] Comment on above: Performed By: #### C KASEY, CMP #### [facility] ([id number]) [address] [place] [address] Lymphocytes/100 WBC (Bld) 22.2 % Normal [facility] Comment on above: Performed By: #### C BCA, CMP #### [facility] ([id number]) [address] [place] [address] MCH (RBC) [Entitic mass] 27.6 pg Normal 27-34 [facility] Comment on above: Performed By: #### C BCA, CMP #### [facility] ([id number]) [address] [place] [address] MCHC (RBC) [Mass/Vol] 33.7 g/dL Normal 32-36 [facility] Comment on above: Performed By: #### C BCA, CMP #### [facility] ([id number]) [address] [place] [address] MCV (RBC) [Entitic vol] 82 fL Normal 80-100 [facility] Comment on above: Performed By: #### C BCA, CMP #### [facility] ([id number]) [address] [place] [address] Monocytes (Bld) [#/Vol] 0.5 10*3/uL Normal 0-0.9 [facility] Comment on above: Performed By: #### C BCA, CMP #### [facility] ([id number]) [address] [place] [address] Monocytes/100 WBC (Bld) 5.7 % Normal [facility] Comment on above: Performed By: #### C BCA, CMP #### [facility] ([id number]) [address] [place] [address] Neutrophils/100 WBC (Bld) 64.6 % Normal [facility] Comment on above: Performed By: #### C BCA, CMP #### [facility] ([id number]) [address] [place] [address] Platelet mean volume (Bld) [Entitic vol] 8.1 fL Normal 7-12 [facility] Comment on above: Performed By: #### C BCA, CMP #### [facility] ([id number]) [address] [address] [place] [address] Platelets (Bld) [#/Vol] 280 10*3/uL Normal 150-450 [facility] Comment on above: Performed By: #### C BCA, CMP #### [facility] ([id number]) [address] [place] [address] RBC COUNT 4.22 X10E12/L Normal 3.80-5.20 [facility] Comment on above: Performed By: #### C BCA, CMP #### [facility] ([id number]) [address] [address] WBC (Bld) [#/Vol] 8.5 10*3/uL Normal 4.0-11.0 [facility] Comment on above: Performed By: #### C BCA, CMP #### [facility] ([id number]) [address] [address] [place] [address] COMPREHENSIVE METABOLIC PANE Keith 01-20-2024 Albumin [Mass/Vol] 3.8 g/dL Normal 3.2-5.3 [facility] Comment on above: Performed By: #### C BCA, CMP #### [facility] ([id number]) [address] [place] [address] ALP [Catalytic activity/Vol] 94 U/L Normal 39-130 [facility] Comment on above: Performed By: #### C BCA, CMP #### [facility] ([id number]) [address] [place] [address] ALT [Catalytic activity/Vol] 15 U/L Normal 0-31 [facility] Comment on above: Performed By: #### C BCA, CMP #### [facility] ([id number]) [address] [place] [address] Anion gap [Moles/Vol] 8 mmol/L Normal 5-15 [facility] Comment on above: Performed By: #### C BCA, CMP #### [facility] ([id number]) [address] [place] [address] AST [Catalytic activity/Vol] 13 U/L Normal 0-41 [facility] Comment on above: Performed By: #### C BCA, CMP #### [facility] ([id number]) [address] [place] [address] Bilirubin [Mass/Vol] 0.3 mg/dL Normal 0.3-1.2 [facility] Comment on above: Performed By: #### C BCA, CMP #### [facility] ([id number]) [address] [place] [address] Calcium [Mass/Vol] 8.6 mg/dL Normal 8.5-10.5 [facility] Comment on above: Performed By: #### C BCA, CMP #### [facility] ([id number]) [address] [place] [address] Chloride [Moles/Vol] 102 mmol/L Normal 98-109 [facility] Comment on above: Performed By: #### C BCA, CMP #### [facility] ([id number]) [address] [place] [address] CO2 [Moles/Vol] 27 mmol/L Normal 22-32 [facility] Comment on above: Performed By: #### C BCA, CMP #### [facility] ([id number]) [address] [place] [address] Creatinine [Mass/Vol] 0.69 mg/dL Normal 0.40-1.00 [facility] Comment on above: Result Comment: METH OD TRACEABLE TO IDMS STANDARD Performed By: #### C BCA, CMP #### [facility] ([id number]) [address] [place] [address] eGFR (CKD-EPI) NON-RACE DEPENDENT >90 Normal >59 [facility] Comment on above: Result Comment: Reported eGFR is based on the CKD-EPI 2020 equation that does not use a race coefficient. Performed By: #### C BCA, CMP #### [facility] ([id number]) [address] [place] [address] Glucose [Mass/Vol] 163 mg/dL High 65-99 [facility] Comment on above: Performed By: #### C BCA, CMP #### [facility] ([id number]) [address] [address] [place] [address] Potassium [Moles/Vol] 3.3 mmol/L Low 3.5-5.0 [facility] Comment on above: Performed By: #### C BCA, CMP #### [facility] ([id number]) [address] [address] [place] [address] Protein [Mass/Vol] 6.5 g/dL Normal 6.0-8.0 [facility] Comment on above: Performed By: #### C BCA, CMP #### [facility] ([id number]) [address] [place] [address] Sodium [Moles/Vol] 137 mmol/L Normal 134-146 [facility] Comment on above: Performed By: #### C BCA, CMP #### [facility] ([id number]) [address] [address] [place] [address] Urea nitrogen [Mass/Vol] 7 mg/dL Normal 5-23 [facility] Comment on above: Performed By: #### C BCA, CMP #### [facility] ([id number]) [address] [place] [address] HCG ( test) Ql (U)o n 01-20-2024 Beta HCG ( test) Ql (U) Negative Normal NEG [facility] Comment on above: Performed By: #### 2 106-3 #### [facility] ([id number]) [address] [place] [address] Troponin I.cardiac High sens itivity method [Mass/Vol]on 01-20-2024 1 HOUR TROP I, HIGH SENSITIVITY 2 ng/L Normal <16 [facility] Comment on above: Performed By: #### 8 9579-7 #### [facility] ([id number]) [address] [place] [address] TROPONIN I, HIGH SENSITIVITY <2 Normal <16 [facility] Comment on above: Performed By: #### 8 9579-7 #### [facility] ([id number]) [address] [place] [address] Urine collection deviceon ER EXTRA URINES ER EXTRA URINE ORDER IN PROCESS Normal [facility] XR CHEST 2 VWSon 01-20-2024 XR CHEST [...] Shirley MD on 01/20/2024 9:41 PM Normal [facility] CARDIAC STACI ADMITon 023 CK [Catalytic activity/Vol] 48 U/L Normal 26-192 [facility] Comment on above: Performed By: #### D DIM #### [facility] [address] [place] [address] [address] Esthela Ott CK.MB [Mass/Vol] 2.77 ng/mL Normal <=3.[address] [facility] Comment on above: Performed By: #### D DIM #### [facility] [address] [place], [place] [address] Dr. Esthela Ott HSTROP <4.0 Normal 4.0-51.3 [facility] Comment on above: Result Comment: CUT- OFF POINTS HAVE BEEN ESTABLISHED BASED ON THE FOURTH UNIVERSAL DEFINITIONS OF MYOCARDIAL INFARCTION. THE UPPER REFERENCE LIMIT (URL) OF TROPONIN, DEFINED THE 99TH PERCENTILE OF cTnI DISTRIBUTION IN A REFERENCE POPULATION, HAS BEEN CONFIRMED THE DECISION THRESHOLD FOR CA DIAGNOSIS. Performed By: #### D DIM #### [facility] [address] [place] [address] Dr. Esthela Ott JOSE 37 ng/mL Normal 9-82 [facility] Comment on above: Performed By: #### D DIM #### [facility] [address] [place] [address] Dr. Esthela Ott CBC AUTO DIFFon 05-10-2022 BASO # 0.0 103/ul Normal 0.0-0.1 [facility] Comment on above: Performed By: #### C BC #### [facility] [address] [place] [address] Dr. Esthela Ott Basophils/100 WBC (Bld) 0.4 % Normal 0.2-2.0 [facility] Comment on above: Performed By: #### C BC #### [facility] [address] [place] [address] Dr. Esthela Ott EO # 0.5 103/ul Normal 0.0-0.7 [facility] Comment on above: Performed By: #### C BC #### [facility] [address] [place] [address] Dr. Esthela Ott Eosinophils/100 WBC (Bld) 5.7 % Normal 0.9-7.0 [facility] Comment on above: Performed By: #### C BC #### [facility] [address] [place] [address] Dr. Esthela Ott Erythrocyte distribution width (RBC) [Ratio] 14.2 % Normal 11.0-15.0 [facility] Comment on above: Performed By: #### C BC #### [facility] [address] [place] [address] Dr. Esthela Ott Hematocrit (Bld) [Volume fraction] 38.4 % Normal 36.0-48.0 [facility] Comment on above: Performed By: #### C BC #### [facility] [address] [place] [address] Dr. Esthela Ott Hemoglobin (Bld) [Mass/Vol] 12.8 g/dL Normal 12.0-16.0 [facility] Comment on above: Performed By: #### C BC #### [facility] [address] [place] [address] Dr. Esthela Ott IG # 0.03 10e3/ul Normal 0.00-0.03 [facility] Comment on above: Performed By: #### C BC #### [facility] [address] [place] [address] Dr. Esthela Ott IG % 0.3 % Normal 0.0-0.5 [facility] Comment on above: Performed By: #### C BC #### [facility] [address] [place] [address] Dr. Esthela Ott LYMPH # 1.9 103/ul Normal 1.2-3.8 [facility] Comment on above: Performed By: #### C BC #### [facility] [address] [place] [address] Dr. Esthela Ott Lymphocytes/100 WBC (Bld) 20.1 % Critically low 20.5-60.0 [facility] Comment on above: Performed By: #### C BC #### [facility] [address] [place] [address] Dr. Esthela Ott MANUAL DIFF REQ NO Normal [facility] Comment on above: Performed By: #### C BC #### [facility] [address] [place] [address] Dr. Esthela Ott MCH (RBC) [Entitic mass] 28.3 pg Normal 26.7-34.0 [facility] Comment on above: Performed By: #### C BC #### [facility] [address] [place] [address] Dr. Esthela Ott MCHC (RBC) [Mass/Vol] 33.3 g/dL Normal 29.9-35.2 [facility] Comment on above: Performed By: #### C BC #### [facility] [address] [address] [address] Esthela Ott MCV (RBC) [Entitic vol] 84.8 fL Normal 81.0-99.0 [facility] Comment on above: Performed By: #### C BC #### [facility] [address] [place] [address] Dr. Esthela Ott MONO # 0.6 103/ul Normal 0.3-0.8 [facility] Comment on above: Performed By: #### C BC #### [facility] [address] [place] [address] Dr. Esthela Ott Monocytes/100 WBC (Bld) 5.8 % Normal 1.7-12.0 [facility] Comment on above: Performed By: #### C BC #### [facility] [address] [place] [address] Dr. Esthela Ott NEUT # 6.5 103/ul Normal 1.4-6.5 [facility] Comment on above: Performed By: #### C BC #### [facility] [address] [place] [address] Dr. Esthela Ott Neutrophils/100 WBC (Bld) 67.7 % Normal 43.0-75.0 [facility] Comment on above: Performed By: #### C BC #### [facility] [address] [place] [address] Dr. Esthela Ott Platelet mean volume (Bld) [Entitic vol] 10.5 fL Normal 9.5-13.5 [facility] Comment on above: Performed By: #### C BC #### [facility] [address] [place] [address] Dr. Esthela Ott PLT 251 103/ul Normal 150-450 [facility] Comment on above: Performed By: #### C BC #### [facility] [address] [place] [address] Dr. Esthela Ott RBC 4.53 106/ul Normal 4.20-5.40 [facility] Comment on above: Performed By: #### C BC #### [facility] [address] [place] [address] Dr. Esthela Ott WBC 9.5 103/ul Normal 4.0-11.0 [facility] Comment on above: Performed By: #### C BC #### [facility] [address] [place] [address] Dr. Esthela Ott D-DIMERon 05-10-2022 D-DIMER 0.29 mg/L FEU Normal <=0.59 [facility] Comment on above: Performed By: #### D DIM #### [facility] [address] [place] [address] Dr. Esthela Ott D-DIMER COMMENTS SEE BELOW Normal [facility] Comment on above: Result Comment: Incr [...] D DIM #### [facility] [address] [place] [address] Dr. Esthela Ott ER URINE PROFILEon 3 Bilirubin Ql (U) Negative Normal NEGATIVE [facility] Comment on above: Performed By: #### E RUR #### [facility] [address] [place] [address] Dr. Esthela Ott Clarity (U) CLEAR Normal CLEAR [facility] Comment on above: Performed By: #### E RUR #### [facility] [address] [place] [address] Dr. Esthela Ott Color (U) LT. YELLOW Normal YELLOW [facility] Comment on above: Performed By: #### E RUR #### [facility] [address] [place] [address] Dr. Esthela Ott ERUAHD A micrscopic examina tion will be performed if indicated. Normal [facility] Comment on above: Performed By: #### E RUR #### [facility] [address] [place] [address] Dr. Esthela Ott Glucose Ql (U) Negative Normal NEGATIVE [facility] Comment on above: Performed By: #### E RUR #### [facility] [address] [place] [address] Dr. Esthela Ott Hemoglobin Ql (U) Negative Normal NEGATIVE [facility] Comment on above: Performed By: #### E RUR #### [facility] [address] [place] [address] Dr. Esthela Ott Ketones Ql (U) Negative Normal NEGATIVE [facility] Comment on above: Performed By: #### E RUR #### [facility] [address] [place] [address] Dr. Esthela Ott LEUKOCYTES Negative Normal NEGATIVE [facility] Comment on above: Performed By: #### E RUR #### [facility] [address] [place] [address] Dr. Esthela Ott Nitrite Ql (U) Negative Normal NEGATIVE [facility] Comment on above: Performed By: #### E RUR #### [facility] [address] [place] [address] Dr. Esthela Ott pH (U) 6.0 [pH] Normal 5-9 [facility] Comment on above: Performed By: #### E RUR #### [facility] [address] [place] [address] Dr. Esthela Ott SPEC GRAVITY 1.020 Normal 1.005-<=1.02 5 [facility] Comment on above: Performed By: #### E RUR #### [facility] [address] [place] [address] Dr. Esthela Ott UA PROTEIN Negative Normal NEGATIVE/ TRACE [facility] Comment on above: Performed By: #### E RUR #### [facility] [address] [place] [address] Dr. Esthela Ott UR MICRO IND NOT INDICATED Normal [facility] Comment on above: Performed By: #### E RUR #### [facility] [address] [place] [address] Dr. Esthela Ott Urobilinogen Qn (U) 0.2 {Mulugeta'U}/dL Normal 0.2 - 1. 0 [facility] Comment on above: Performed By: #### E RUR #### [facility] [address] [address] [address] Esthela Ott URon 05-10-2022 , QUAL Negative Normal NEGATIVE [facility] Comment on above: Performed By: #### P REGU #### [facility] [address] [address] [address] Esthela Ott PROF 14(COMP METB)on 023 Albumin [Mass/Vol] 3.2 g/dL Critically low 3.4-5.0 [facility] Comment on above: Performed By: #### C ALTA, CMP #### [facility] [address] [place] [address] Dr. Esthela Ott Albumin/Globulin [Mass ratio] 0.8 {ratio} Normal [facility] Comment on above: Performed By: #### C ALTA, CMP #### [facility] [address] [place] [address] Dr. Esthela Ott ALP [Catalytic activity/Vol] 99 U/L Normal 46-116 [facility] Comment on above: Performed By: #### C ALTA, CMP #### [facility] [address] [place] [address] Dr. Esthela Ott ALT [Catalytic activity/Vol] 25 U/L Normal 14-59 [facility] Comment on above: Performed By: #### C ALTA, CMP #### [facility] [address] [place] [address] Dr. sEthela Ott Anion gap [Moles/Vol] 13.0 mmol/L Normal [facility] Comment on above: Performed By: #### C ALTA, CMP #### [facility] [address] [place] [address] Dr. Esthela Ott AST [Catalytic activity/Vol] 19 U/L Normal 15-37 [facility] Comment on above: Performed By: #### C ALTA, CMP #### [facility] [address] [address] [address] Esthela Ott Bilirubin [Mass/Vol] 0.3 mg/dL Normal 0.2-1.0 [facility] Comment on above: Performed By: #### C MYESHAM, CMP #### [facility] [address] [place] [address] Dr. Esthela Ott Calcium [Mass/Vol] 9.0 mg/dL Normal 8.5-10.1 [facility] Comment on above: Performed By: #### C MYESHAM, CMP #### [facility] [address] [place] [address] Dr. Esthela Ott Chloride [Moles/Vol] 103 mmol/L Normal 98-107 [facility] Comment on above: Performed By: #### C ALTA, CMP #### [facility] [address] [place] [address] Dr. Esthela Ott CO2 [Moles/Vol] 26.8 mmol/L Normal 21.0-32.[address] [facility] Comment on above: Performed By: #### C LATA, CMP #### [facility] [address] [place] [address] Dr. Esthela Ott Creatinine [Mass/Vol] 0.71 mg/dL Normal 0.55-1.02 [facility] Comment on above: Performed By: #### C ALTA, CMP #### [facility] [address] [place] [address] Dr. Esthela Ott EGFR-AF SENEGALESE >60 Normal >=60 [facility] Comment on above: Performed By: #### C ALTA, CMP #### [facility] [address] [place] [address] Dr. Esthela Ott EGFR-NON AF SENEGALESE >60 Normal >=60 [facility] Comment on above: Performed By: #### C MYESHAM, CMP #### [facility] [facility] [address] [place] [address] Dr. Esthela Ott Globulin (S) [Mass/Vol] 3.8 g/dL Normal [facility] Comment on above: Performed By: #### C ALTA, CMP #### [facility] [address] [address] [address] Esthela Ott Glucose [Mass/Vol] 135 mg/dL Critically high 74-[address] [facility] Comment on above: Performed By: #### C ALTA, CMP #### [facility] [address] [address] [address] Esthela Ott Potassium [Moles/Vol] 3.8 mmol/L Normal 3.5-5.1 [facility] Comment on above: Performed By: #### C ALTA, CMP #### [facility] [address] [address] [address] Esthela Ott Protein [Mass/Vol] 7.0 g/dL Normal 6.4-8.2 [facility] Comment on above: Performed By: #### C ALTA, CMP #### [facility] [address] [address] [address] Esthela Ott Sodium [Moles/Vol] 139 mmol/L Normal 136-145 [facility] Comment on above: Performed By: #### C ALTA, CMP #### [facility] [address] [address] [address] Esthela Ott Urea nitrogen [Mass/Vol] 8.0 mg/dL Normal 7.0-18.0 [facility] Comment on above: Performed By: #### C ALTA, CMP #### [facility] [address] [address] [address] Esthela Ott Urea nitrogen/Creatinine [Mass ratio] 11.3 mg/mg Normal [facility] Comment on above: Performed By: #### C ALTA, CMP #### [facility] [address] [address] [address] Esthela Ott XR CHEST 2 Von [...] Normal [facility]on [facility]-24 SARS-CoV-2 (COVID-19) RNA ANTHONY+probe Ql (Unsp [...] for this test is supported by the Interventional Cardiologist of Health and Human Service's (HHS's) declaration [...] C VDTBH #### [facility] [address] [place] [address] Dr. Esthela Ott INFLUENZA A AND B AGon 03-[facility] Normal [facility] Comment on above: Result Comment: Nega tive for Flu A protein angiten. Infection due to Flu A cannot be ruled out. Flu A angiten in the sample may be below the detection limit of the test. Performed By: #### I NFLUAB #### [facility] [address] [place] [address] Dr. [facility] SEE BEL[facility] Normal [facility] Comment on above: Result Comment: Nega tive for Flu B protein antigen. Infection due to Flu B cannot be ruled out. Flu B antigen in the sample may be below the detection limit of the test. Performed By: #### I NFLUAB #### [facility] [address] [place] [address] Dr. Esthela Ott INFLUENZA A AG Negative Normal NEGATIVE SEE COMMENT [facility] Comment on above: Performed By: #### I NFLUAB #### [facility] [address] [place] [address] Dr. Esthela Ott INFLUENZA B AG Negative Normal NEGATIVE SEE COMMENT [facility] Comment on above: Performed By: #### I NFLUAB #### [facility] [address] [address] [address] Esthela Ott INTERNAL CONTROLS Within Normal Limits Normal Wi thin Normal Limits [facility] Comment on above: Performed By: #### I NFLUAB #### [facility] [address] [address] [address] Esthela Ott SYMPTOMATIC COVID-19 ANTIGEN on 03-07-2022 EUA Statement SEE BELOW Normal [facility] Comment on above: Result Comment: This [...] D DIM #### [facility] [address] [place] [address] Dr. Esthela Ott SARS-CoV-2 (COVID-19) RNA ANTHONY+probe Ql (Unsp spec) Negative Normal NEGATIVE [facility] Comment on above: Performed By: #### D DIM #### [facility] [address] [place] [address] Dr. Esthela Ott [facility]19 PCR ([facility]on 11-26 SARS-CoV-2 (COVID-19) RNA ANTHONY+probe [...] for this test is supported by the [place] of Health and Human Service's (HHS's) declaration [...] D DIM #### [facility] [address] [place] [address] Dr. Esthela Ott WILLIAM by IFAon 09-11-2021 Antinuclear Antibodies, IFA Negative Normal [facility] Comment on above: Result Comment: Nega tive <1:80 Borderline 1:80 Positive >1:80 ICAP nomenclature: AC-0 For more information about Hep-2 cell patterns use ANApatterns.org, the official website for the International Consensus on Antinuclear Antibody (WILLIAM) Patterns (ICAP). Performed By: #### D DIM #### [facility] [address] [place] [address] Dr. Esthela Ott ANTISTREPTOLYSIN O AB (ASO)o n 09-11-2021 Antistreptolysin O Ab <20.0 Normal 0.0-200.0 [facility] Comment on above: Performed By: #### D DIM #### [facility] [address] [place] [address] Dr. Esthela Ott RHEUMATOID FACTORon 09-12-19 RA Latex Turbid. 15.2 IU/mL Critically high <14.0 [facility] Comment on above: Performed By: #### R F #### [facility] [address] [place] [address] Dr. Esthela Ott CRPon 09-10-2021 CRP 3.4 mg/dL Critically high <=1.[address] [facility] Comment on above: Performed By: #### C RP, URIC #### [facility] [address] [address] [address] Esthela Ott URIC ACID SERUMon 09-10-2021 Urate [Mass/Vol] 5.2 mg/dL Normal 2.6-6.0 [facility] Comment on above: Performed By: #### C RP, URIC #### [facility] [address] [address] [address] Esthela Ott COVID-19 Antigenon 2 COVID-19 [...] its performance Kristyn Disclaimer characteristic determined by [facility] and Kristyn Disclaimer validated at [facility]. This Kristyn Disclaimer test has not been [...] is terminated or revoked sooner. PERFORMED BY: [facility] [address] [place] [address] PATHOLOGIST ESTHETICIAN/OWNER LUIGI HERRERA M.D. [facility] Comment on above: Performed By: #### S BREA COVID-19 KRISTYN #### [facility] [address] [place] [address] [facility] Kristyn Ag Negativeon 04-07-19 22 Kristyn Ag Negative Negative Normal Negative [facility] Comment on above: Result Comment: This is a duplicate Krisytn SARS Antigen (FABIOLA) result to be used for statistical tracking purpose only. PERFORMED BY: [facility] [address] [facility] [place] [address] PATHOLOGIST ESTHETICIAN/OWNER LUIGI HERRERA M.D. Performed By: #### S DANNYBONNIE, COVID-19 KRISTYN #### [facility] [address] SURF MARKERS >15,PATH REVon 08-28-2020 PATH REV. 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 Performed By: #### P R194 #### [facility] [address] [place] [address] SURFACE MARKERS LYMPHOMA NARANJO Autumn 08-28-2020 DIAGNOSIS SEE BELOW Normal [facility] Comment on above: Order Comment: 9463 B: Right lacrimal biopsyDX: Dacryoadenitis; rule out lymphoma Result Comment: No c lonal B cell or abnormal T cell population identified. Performed By: #### L YPAN ####[id number] [place] [address] Lymphocytes/100 WBC (Bld) 2 % Normal [facility] Comment on above: Order Comment: 9463 B: Right lacrimal biopsyDX: Dacryoadenitis; rule out lymphoma Result Comment: Over 90% of the cells are T cells. CD4:CD8 of about 5:3. Performed By: #### L YPAN ####[id number] [place] [address] NOTE SEE BELOW Normal [facility] Comment on above: Order Comment: 9463 B: Right lacrimal biopsyDX: Dacryoadenitis; rule out lymphoma Result Comment: [place] elate with separate surgical pathology report. 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 Performed By: #### P R192 #### [facility] [address] [place] [address] SURFACE MARKERS LYMPHOMA CUT DOWN PANELon 08-27-2020 DIAGNOSIS SEE BELOW Normal [facility] Comment on above: Order Comment: 9463 A: Left lacrimal biopsy DX: Dacryoadenitis; rule out lymphoma Result Comment: No c lonal B cell or abnormal T cell population identified. Performed By: #### L CPAN #### [facility] [address] [place] [address] NOTE SEE BELOW Normal [facility] Comment on above: Order Comment: 9463 A: Left lacrimal biopsy DX: Dacryoadenitis; rule out lymphoma Result Comment: [place] with separate surgical pathology report. Performed By: #### L CPAN #### [facility] [address] [place] [address] SURFACE MARKERS LYMPHOMA NARANJO Autumn 08-27-2020 CELL COUNT 2.2 x10E9/L Normal [facility] Comment on above: Order Comment: 9463 B: Right lacrimal biopsyDX: Dacryoadenitis; rule out lymphoma Performed By: #### L YPAN ####[id number] [place] [address] METHOD SEE BELOW Normal [facility] Comment on above: Order Comment: 9463 B: Right lacrimal biopsyDX: Dacryoadenitis; rule out lymphoma Result Comment: This test is a multicolor, whole blood lysis assay. It was developed and its performance characteristics determined by the Department of Pathology, [facility], and has not been cleared or [...] CD23, CD20, CD19, CD11c, CD180, CD1c, CD79b, Duque, Lambda, CD38, CD10. Additional Antibodies: TCRB1, TCR gamma/delta Performed By: #### L YPAN ####[id number] [id number] NUMBER OF CELLS COLLECTED 17,000-59,000 Normal [facility] Comment on above: Order Comment: 9463 B: Right lacrimal biopsyDX: Dacryoadenitis; rule out lymphoma Performed By: #### L YPMALLORY ####[id number] [place] [address] SPECIMEN SITE Right lacrimal Biopsy Normal [facility] Comment on above: Order Comment: 9463 B: Right lacrimal biopsyDX: Dacryoadenitis; rule out lymphoma Performed By: #### L YPAN ####[id number] [place] [address] SPECIMEN VIABILITY Acceptable Normal [facility] Comment on above: Order Comment: 9463 B: Right lacrimal biopsyDX: Dacryoadenitis; rule out lymphoma Performed By: #### L YPAN ####[id number] [place] [address] FLOW CYTOMETRY TESTon 2020 FLOW TEST ORDERED LYMPHOMA CUTDOWN PANEL Normal [facility] Comment on above: Order Comment: 9463 A: Left lacrimal biopsy DX: Dacryoadenitis; rule out lymphoma Performed By: #### F CTST #### [facility] [address] [place] [address] SURFACE MARKERS LYMPHOMA CUT DOWN PANELon 08-26-2020 SPECIMEN VIABILITY Acceptable Normal [facility] Comment on above: Order Comment: 9463 A: Left lacrimal biopsy DX: Dacryoadenitis; rule out lymphoma Performed By: #### L CPAN #### [facility] [address] [place], [place] CELL COUNT 0.48 x10E9/L Normal [facility] Comment on above: Order Comment: 9463 A: Left lacrimal biopsy DX: Dacryoadenitis; rule out lymphoma Performed By: #### L CPAN #### [facility] [address] [place] [address] Lymphocytes/100 WBC (Bld) 2 % Normal [facility] Comment on above: Order Comment: 9463 A: Left lacrimal biopsy DX: Dacryoadenitis; rule out lymphoma Performed By: #### L CPAN #### [facility] [address] [place] [address] METHOD SEE BELOW Normal [facility] Comment on above: Order Comment: 9463 A: Left lacrimal biopsy DX: Dacryoadenitis; rule out lymphoma Result Comment: This test is a multicolor, whole blood lysis assay. It was developed and its performance characteristics determined by the Department of Pathology, [facility], and has not been cleared or [...] Performed By: #### L CPAN #### [facility] [address] [place] [address] NUMBER OF CELLS COLLECTED [phone] Normal [facility] Comment on above: Order Comment: 9463 A: Left lacrimal biopsy DX: Dacryoadenitis; rule out lymphoma Performed By: #### L CPAN #### [facility] [address] [place] [address] SPECIMEN SITE LEFT LACRIMAL BX Normal [facility] Comment on above: Order Comment: 9463 A: Left lacrimal biopsy DX: Dacryoadenitis; rule out lymphoma Performed By: #### L CPAN #### [facility] [address] [place] [address] FLOW CYTOMETRY TESTon 2020 SOURCE TISSUE Normal [facility] Comment on above: Order Comment: 9463 B: Right lacrimal biopsyDX: Dacryoadenitis; rule out lymphoma Performed By: #### F CTST ####[id number] [place] [address] SOURCE TISSUE Normal [facility] Comment on above: Order Comment: 9463 A: Left lacrimal biopsy DX: Dacryoadenitis; rule out lymphoma Performed By: #### F CTST #### [facility] [address] [place] [address] GLUCOSE-POCTon 08-25-2020 Glucose [Mass/Vol] 137 mg/dL High 74 - 99 [facility] Comment on above: Result Comment: This assay has not been validated for use with critically ill patients. Clinical correlation or lab draw is recommended. Performed By: #### G WISAM #### [facility] [address] [place] [address] HCG,URINEon 08-25-2020 Beta HCG ( test) Ql (U) Negative Normal Negative [facility] Comment on above: Result Comment: POCT Performed By: #### H CGU #### [facility] [address] [facility] [place] [address] Patient Profile - Preop v2on 08-25-2020 Patient [...] material; individual instruction Cultural Considerationsnone Developmental Considerationsnone Shinto Considerationsnone Other learner availableno [place] RiskPatient location auto qualifies him/her for HIGH RISK. Are there any cultural, spiritual, yazidi practices/values/needs that are important for us to [...] Updated: 25-Aug-2020 09:30 by Luli Lira) Normal [facility] Preop Checkliston 08-25-2020 Preop Checklist Preop Checklist: Preop Checklist: Arrival [id number] Procedure Typebilateral eyelid surgery NPO [id number] SCD's Appliednot applicable Valuables Securedunder cart Cardiovascular Assessment: Extremitieswarm Respiratory Assessment: Respirationsunlabored Neurological Assessment: Level of Consciousnessalert Able to Express Selfyes Age Appropriateyes Emotional Statuscalm Preop Education: Surgical Site Infection Preventionyes Pain Scales and Managementyes Language / Communication: Language / CommunicationEnglish Electronic Signatures: Luli Lira) (Signed 25-Aug-2020 09:32) Authored: Preop Checklist Last Updated: 25-Aug-2020 09:32 by Luli Lira) Normal [facility] Surgical Pathology Depar tmenton 08-25-2020 [facility] Surgical Pathology Department Name RASHIDA ROBLES Pathologist: ROEL ROSARIO JR, MD, PhD. Date of Procedure: 08/25/2020 Date Received: 08/25/2020 Date Reported 08/28/2020 Submitting Physician: SONALI MACIAS MD Location: [facility] Other External # FINAL DIAGNOSIS [...] vasculitis are not seen. Clinical correlation recommended. as400 consultant: Dr. Naomi Dunn (Eye pathologist, [facility]) IMMUNOHISTOCHEMISTRY AND IN SITU HYBRIDIZATION (SARITA): Stains performed on block A1 reveal: CD20 AND CD3: Lymphocytic infiltrate is composed of an admixture of B and T cells respectively. CD138: Highlights plasma cells Duque AND Lambda SARITA: Plasma cell population appears [...] this case. Clinical History: Physician Contact Number: [phone] Fixative (A): Formalin Fixative (B): Formalin Clinical [...] the Department of Pathology Immunohistochemistry Labs at [facility]. The FDA does not require this test to go through premarket FDA review. This test is used for clinical purposes. It should not be regarded as investigational or for research. This laboratory is certified under the Clinical Laboratory Improvement Amendments (CLIA) as qualified to perform high complexity clinical laboratory testing. The assays/tests were performed with appropriate positive and negative controls which stained appropriately. [facility] Department of Pathology [id number] [place] [address] Normal [facility] Comment on above: Performed By: #### U [facility] #### [facility] Surgical Pathology Department [address] [place] [address] CORONAVIRUS 2019, SCREEN ASY MPTOMATICon 08-23-2020 SARS-CoV-2 (COVID-19) RNA ANTHONY+probe Ql (Unsp spec) Not detected Normal Not Detected [facility] Comment on above: Result Comment: [...] this test method. Fact sheet for providers: https://www.fda.gov/media/480607/download Fact sheet for patients: https://www.fda.gov/media/109350/download This test has received FDA Emergency Use Authorization [EUA] and has been verified by [facility] ([facility]). This test is only authorized for the duration of time that circumstances exist to justify the authorization of the emergency use of in vitro diagnostic tests for the detection of SARS-CoV-2 virus and/or diagnosis of COVID-19 infection under section 564(b)(1) of the Act, 21 U.S.C. 360bbb-3(b)(1), unless the authorization is terminated or revoked sooner. [facility] is certified under CLIA-88 as qualified to perform high complexity testing. Testing is performed in the [facility] laboratories located at [id number] [place] [address]. Performed By: #### C OVSC #### [facility] [id number] [place] [address]. [place] [address] Covid 19 Resultson 1 SARS-CoV-2 (COVID-19) RNA [...] You may also be contacted by the [facility] of Health to see if any of [...] or Naproxen (Aleve) can also be used. Msyn-wsx-cxszbew cough and cold medicines can be used according to the instructions on the package. Some zuqk-srx-nrrardm medicines also contain acetaminophen. Make sure you [...] water are not available, use alcohol-based hand upholstery instructor. Avoid touching your eyes, nose, and [...] 24 venessa (more content not included)... Normal [facility] CORONAVIRUS 2019, SCREEN ASY MPTOMATICon 08-22-2020 Lab Specimen Source Nasal, Nasopharyngeal Normal [facility] Comment on above: Performed By: #### C OVSC #### [facility] [address] [place] [address] Encounters Encounter Date Encounter Type Care Provider Facility Start: 01-20-2024 End: 01-21-2024 Emergency department patient visit NOT IN SYSTEM [facility] Start: 05-10-2022 End: 05-10-2022 ambulatory AYSHA DEL TORO Facility:[facility] Start: 03-07-2022 End: 03-07-[address] JASON BURROUGHS . Facility:[facility] Start: 12-16-2021 End: 12-16-2021 ambulatory AYSHA DEL TORO Facility:[facility] Start: 09-10-2021 End: 09-11-2021 ambulatory AYSHA DEL TORO Facility:[facility] Payers Date Payer Category Payer Unknown [id number] 2.16.84 [id number] 1990 Unknown [id number] 2.16.84 [id number] 1990 Unknown [id number] 2.16.84 [id number] 1990 Unknown [id number] 2.16.84 [id number] 1990 Unknown [id number] 2.16.8 [id number] 1959 Unknown [id number] Clinical Note 08-25-2020 Note Date & Type Note Facility 08-25-2020 Note Post Operative Note: PreOp Diagnosis: Bilateral Dacryoadenitis Post-Procedure Diagnosis: Bilateral Dacryoadenitis Procedure: 1. Incisional Biopsy of Bilateral Lacrimal Glands by anterior orbitotomy approach 2. Resuspension of lacrimal glands bilateral Surgeon: Gilberto Resident/Fellow/Other Benefits Technician: Youa Anesthesia: MAC Estimated Blood Loss (mL): [...] Last Updated: 25-Aug-2020 12:18 by Sonali Macias) [facility] Clinical Note 08-25-2020 Note Date & [...] Patient Profile - Preop v2 25-Aug-2020 09:23 [facility] Summary Purpose Family History No Family History Records FoundNo Family History Records FoundNo Family History Records FoundNo Family History Records FoundNo Family History Records Found Advance Directives No Advanced Directives Records FoundNo Advanced Directives Records FoundNo Advanced Directives Records FoundNo Advanced Directives Records FoundNo Advanced Directives Records Found Additional Source Comments INFORMATION SOURCE (unrecogn ized section and content) DATE CREATED AUTHOR 08/28/2020 [facility] DATE CREATED AUTHOR AUTHOR'S ORGANIZ ATION 08/29/2020 [facility] DATE CREATED AUTHOR AUTHOR'S ORGANIZ ATION 06/14/2021 [facility] DATE CREATED AUTHOR AUTHOR'S ORGANIZ ATION 06/02/2022 [facility] DATE CREATED AUTHOR AUTHOR'S ORGANIZ ATION 01/21/2024 [facility] FOR RECORDS PERTAINING TO PATIENTS WHO [...] BE BASED ON THE PRIMARY CLINICAL RECORDS. [facility] [employer] [facility]. provides no warranty or guarantee of the accuracy or completeness of information in this document.
--- NOTE | 2024-08-24 01:53 | ED.SOB1 ---
HPI - SOB/Dyspnea General Chief Complaint: Shortness of Breath/Dyspnea Stated Complaint: ASTHMA Time Seen by Provider: 08/24/24 01:48 Source: patient Mode of arrival: Wheelchair History of Present Illness HPI Narrative: cc - shortness of breath 34-year-old female with history of asthma presents with a self-described asthma attack. Patient says that this evening she felt increased wheezing and chest tightness with shortness of breath. She did not improve much with her home albuterol metered-dose inhaler. She came to the ED for evaluation. She denied any recent exposure to chemicals, assistant associate full professor, other antigens that may have set this off. She said that she was resting at home when it began. No fever or chills. No cough or cold. She did have some mild upper respiratory type symptoms over the last few days. No travel history. No known ill contacts. Related Data Home Medications ?Medication ?Instructions ?Recorded ?Confirmed albuterol sulfate 2.5 mg/3 mL 2.5 mg inhalation Q4H PRN 10/05/23 10/05/23 (0.083 %) solution for nebulization shortness of breath or wheezing albuterol sulfate 90 mcg/actuation 2 inh inhalation Q4H PRN 10/05/23 10/05/23 aerosol inhaler bronchospasm cetirizine 10 mg tablet 10 mg PO DAILY 10/05/23 10/05/23 lamotrigine 100 mg tablet 200 mg PO DAILY 10/05/23 10/05/23 mometasone-formoterol HFA 200 2 inh inhalation Q12H 10/05/23 10/05/23 mcg-5 mcg/actuation aerosol inhaler (Dulera) quetiapine 100 mg tablet 100 mg PO DAILY 10/05/23 10/05/23 quetiapine 400 mg tablet 400 mg PO .QHS 10/05/23 10/05/23 tiotropium bromide 1.25 2 puff inhalation Q24H 10/05/23 10/05/23 mcg/actuation mist for inhalation (Spiriva Respimat) Previous Rx's ?Medication ?Instructions ?Recorded cefdinir 300 mg capsule 600 mg (2 x 300 mg) PO DAILY #20 10/08/23 caps montelukast 10 mg tablet 10 mg PO QPM #30 tabs 10/08/23 (Singulair) prednisone 10 mg tablet 30 mg (3 x 10 mg) PO DAILY #20 tabs 10/08/23 ipratropium bromide 17 1 inh inhalation Q8H PRN shortness 08/24/24 mcg/actuation HFA aerosol inhaler of breath or wheezing #12.9 grams (Atrovent HFA) prednisone 20 mg tablet 40 mg (2 x 20 mg) PO DAILY 3 days 08/24/24 #6 tabs Allergies Allergy/AdvReac Type Severity Reaction Status Date / Time Penicillins Allergy Unknown Unknown Verified 10/05/23 13:11 [facility] Medical History (Updated 08/24/24 @ 01:55 by Tejas Jane) Mild persistent asthma with exacerbation ?J45.31 - Mild persistent asthma with (acute) exacerbation (ICD-10) SOB (shortness of breath) ?R06.02 - Shortness of breath (ICD-10) Asthma with acute exacerbation ?J45.901 - Unspecified asthma with (acute) exacerbation (ICD-10) Mild persistent asthma in adult without complication ?J45.30 - Mild persistent asthma, uncomplicated (ICD-10) Respiratory failure ?J96.90 - Respiratory failure, unspecified, unspecified whether with hypoxia or hypercapnia (ICD-10) Family History (Updated 10/05/23 @ 16:26 by Wanda Malcolm) Grandmother Family history of diabetes mellitus Social History (Updated 10/05/23 @ 16:28 by Wanda Mlacolm) Within the past year, how often did you have a drink containing alcohol: never Score interpretation: A score less than 3 is consistent with normal alcohol consumption. Smoking status: Current some day smoker Non-prescribed substance use: cannabis (any form) Previous occupational history: [employer] Highest level of school completed/degree received: high school graduate Are you now , , , , never or living with a partner: living with partner In a typical week, how many times do you talk on the telephone with family, friends, or neighbors: 3 or more times per week How often do you get together with friends or relatives: 3 or more times per week How often do you attend caodaism or adventism services: 4 or more times per year Little interest or pleasure in doing things: not at all Feeling down, depressed, or hopeless: not at all Feel stressed/tense/nervous/anxious/difficulty sleeping: not at all Exam Narrative Exam Narrative: Nurses notes and vital signs reviewed and patient is not hypoxic. afebrile General: Well-appearing and in no apparent distress. Skin: Warm, dry, no pallor noted. No rash. Head: Normocephalic, atraumatic. Neck: Supple, non-tender. No cervical lymphadenopathy. Eye: Pupils are equal, round and EOMI. No scleral icterus. Ears, Nose, Mouth, and Throat: TM are clear, no posterior oropharynx erythema or nasal mucosal hypertrophy, uvula is mid-line Oral mucosa is moist Cardiovascular: Tachycardia. Respiratory: No accessory muscle use or respiratory distress. Lungs with scattered rhonchi and end expiratory wheezing Neurological: A&O x4. No cranial nerve dysfunction observed. No truncal ataxia. Moves all extremities. Sensation intact. Psychiatric: Cooperative and interactive. Normal mood and affect. Constitutional Vital Signs, click to edit/add: Last Vital Signs Temp 99.1 F 08/24/24 01:02 Pulse 107 H 08/24/24 01:02 Resp 26 H 08/24/24 01:02 BP 108/72 08/24/24 01:02 Pulse Ox 95 08/24/24 01:02 O2 Del Method Room Air 08/24/24 01:02 Course Vital Signs Vital signs: Vital Signs Temperature 99.1 F 08/24/24 01:02 Pulse Rate 107 H 08/24/24 01:02 Respiratory Rate 26 H 08/24/24 01:02 Blood Pressure 108/72 08/24/24 01:02 Pulse Oximetry 95 08/24/24 01:02 Oxygen Delivery Method Room Air 08/24/24 01:02 Temperature 99.1 F 08/24/24 01:02 Pulse Rate 107 H 08/24/24 01:02 Respiratory Rate 26 H 08/24/24 01:02 Blood Pressure 108/72 08/24/24 01:02 Pulse Oximetry 95 08/24/24 01:02 Oxygen Delivery Method Room Air 08/24/24 01:02 MDM - SOB/Dyspnea MDM Narrative Medical decision making narrative: Patient was given 40 mg prednisone orally and a DuoNeb treatment was ordered as well. Single view portable chest x-ray was obtained. I do not see any worrisome findings on the portable chest x-ray. After treatment with the albuterol and Atrovent nebulizer she felt much better and reexamination revealed less rhonchi and only a few scattered expiratory wheezes in the lung romo. She was discharged home with a prescription for short course of prednisone and also prescription for Atrovent inhaler. Reasons to return to the ED were discussed. She sees Dr. Pemberton, the local medical record coder and will call him for follow-up. Imaging Data Chest x-ray: My impression: No acute disease -no infiltrate, effusion, consolidation or pneumothorax Discharge Plan Discharge Chief Complaint: Shortness of Breath/Dyspnea Clinical Impression: Asthma with acute exacerbation Patient Disposition: Home, Self-Care Time of Disposition Decision: 02:47 Prescriptions / Home Meds: New prednisone 20 mg tablet 40 mg PO DAILY 3 Days Qty: 6 0RF Atrovent HFA 17 mcg/actuation HFA aerosol inhaler 1 inh inhalation Q8H PRN (Reason: shortness of breath or wheezing) Qty: 12.9 0RF Rx Instructions: administer with spacer No Action albuterol sulfate 2.5 mg /3 mL (0.083 %) solution for nebulization 2.5 mg inhalation Q4H PRN (Reason: shortness of breath or wheezing) cetirizine 10 mg tablet 10 mg PO DAILY quetiapine 100 mg tablet 100 mg PO DAILY albuterol sulfate 90 mcg/actuation HFA aerosol inhaler 2 inh INHALATION Q4H PRN (Reason: bronchospasm) lamotrigine 100 mg tablet 200 mg PO DAILY Dulera 200-5 mcg/actuation HFA aerosol inhaler 2 inh INHALATION Q12H Spiriva Respimat 1.25 mcg/actuation mist 2 puff INHALATION Q24H quetiapine 400 mg tablet 400 mg PO .QHS montelukast [Singulair] 10 mg tablet 10 mg PO QPM Qty: 30 11RF prednisone 10 mg tablet 30 mg PO DAILY Qty: 20 0RF Rx Instructions: 3/day for 3 days, 2/day for 3 days, 1/day for 3 days, 1/2 /day for 4 days cefdinir 300 mg capsule 600 mg PO DAILY Qty: 20 0RF Print Language: Malawian Instructions: Asthma (ED) Referrals: AYSHA DEL TORO [Primary Care Provider, Family Practice] - 1 week
[2024-08-24] MEDS: PREDNISONE 20 MG TABLET 40 MG PO (01:58)
[2024-08-24] MEDS: IPRATROPIUM/ALBUTEROL SULFATE 3 ML AMPUL.NEB IH (02:06)
== END 2024-08-24 03:25 | disposition home or self-care (01) ==
PROVIDERS: Emergency Provider Emergency Medicine; PCP Nurse Practitioner Family
DX: J45.901 Unspecified asthma with (acute) exacerbation (principal); R06.02 Shortness of breath; R00.0 Tachycardia, unspecified
CPT/HCPCS: 71045; 94640; 99284; J7512

== ENCOUNTER 2025-01-22 10:13 | Outpatient (OUT) | payer OTHER, SELFPAY ==
--- OUTSIDE RECORDS SUMMARY | 2025-01-22 10:15 | XMS_ITS | Clinical Summary ---
Author Organization [facility] Address [address] [facility], [place] [address] Care Team Providers Care Jet Engine Mechanic Name Role Phone Unavailable Primary Care Provider Unavailabl e Social History Tobacco UseTypesPacks/DayYears UsedDateSmoking Tobacco: Never Assessed CommentsUnknownSex and Gender InformationValueDate RecordedSex Assigned at Not on fileLegal TguCdsdey94/01/2023 8:34 PM EDTGender IdentityNot on fileSexual OrientationNot on file Plan of Treatment [place] [id number]
--- OUTSIDE RECORDS SUMMARY | 2025-01-22 10:15 | XMS_ITS | Clinical Summary ---
Author Organization [facility] Address [address] [place] [address] Phone Care Team Providers Care Cord Cutter Name Role Phone Unavailable Primary Care Provider Unavailabl e Social History Tobacco UseTypesPacks/DayYears UsedDateSmoking Tobacco: Never Assessed CommentsUnknownSex and Gender InformationValueDate RecordedSex Assigned at Not on fileLegal TwaIamrnn65/25/2022 2:09 PM ESTGender IdentityNot on fileSexual OrientationNot on file Plan of Treatment Not on file
--- OUTSIDE RECORDS SUMMARY | 2025-01-22 10:15 | XMS_ITS | Clinical Summary ---
Author Organization [facility] tem Address [id number] [address] [place] [address] Care Team Providers Care Nurse Auditor Name Role Phone Pcp, Not In System Primary Care Provider Unavail able Allergies Active AllergyReactionsCriticalityNoted KrvhMwhipmomDgjkddbxtok29/26/2024 Medications MedicationSigDispense QuantityRefillsLast FilledStart DateEnd DateStatus QUEtiapine XR (SEROquel XR) 400 mg 24 hr tablet Take 1 tablet (400 mg total) by mouth nightly.Active albuterol (PROVENTIL) 5 mg/mL nebulizer solution Inhale 0.5 mL (2.5 mg total) by nebulization every 6 (six) hours as needed for wheezing.Active tiotropium (SPIRIVA) 18 mcg per inhalation capsule Place 1 capsule into inhaler and inhale once daily.Active lamoTRIgine (LaMICtal) 100 mg tablet Take 1 tablet (100 mg total) by mouth in the morning.Active cetirizine (ZyrTEC) 10 mg tablet Take 1 tablet (10 mg total) by mouth in the morning.Active famotidine (PEPCID) 20 mg tablet Take 1 tablet (20 mg total) by mouth in the morning and 1 tablet (20 mg total) before bedtime. 20 tablet 01/21/2024ctive Social History Tobacco UseTypesPacks/DayYears UsedDateSmoking Tobacco: NeverSmokeless Tobacco: Never Tobacco Cessation:Counseling Given: Not Answered Alcohol UseStandard Drinks/WeekCommentsNot Currently0 (1 standard drink = 0.6 oz pure alcohol)Hunger ScreeningAnswerDate RecordedWithin the past 12 months we worried whether our food would run out before we got money to buy more.Never True01/20/2024Within the past 12 months the food we bought just didn't last and we didn't have money to get more.Never True01/20/2024CommentsUnknownSex and Gender InformationValueDate RecordedSex Assigned at BirthNot on fileLegal DwyBrwljy29/26/2024 8:31 PM EDTGender IdentityNot on fileSexual OrientationNot on file Last Filed Vital Signs Vital SignReadingTime TakenCommentsBlood Yczrtgwl880/7101/21/2024 12:00 AM EDT Wkvss176801/21/2024 12:00 AM WTYRiqfqnfngxl60.8 ??C (98.2 ??F)01/20/2024 8:42 PM EDTRespiratory Brei7842 12:00 AM EDTOxygen Hmahtvldbq826%01/21/2024 12:00 AM EDTInhaled Oxygen Concentration--Japesk081.4 kg (250 lb)01/20/2024 8:42 PM JIPSsglxo320.2 cm (5' 7 )01/20/2024 8:42 PM EDTBody Mass Index39.161 8:42 PM EDT Plan of Treatment Health MaintenanceDue DateLast DoneCommentsDepression Swyzcywmv94/12/2002Adult BMI Follow Up Plan02/06/2008DTaP,Tdap and Td Vaccines (1 - Tdap)2009Pap Smear2011Influenza Evwcgtf36/01/2025Adult BMI Ootwukanr45/26/2025 01/20/2024Tobacco Rxzswtwnd34 Medical Devices Not on file Insurance Care Teams Team MemberRelationshipSpecialtyStart DateEnd Date Pcp, [place] [address] [facility]
== END 2025-01-22 10:14 | disposition home or self-care (01) ==
LOC: FHNEUROLOG 10:14
PROVIDERS: PCP Nurse Practitioner Family; Visit Provider Psychiatry & Neurology Neurology
DX: G47.33 Obstructive sleep apnea (adult) (pediatric) (principal); G47.10 Hypersomnia, unspecified; R06.83 Snoring
CPT/HCPCS: G0463